=== PATIENT | male | born 1945 | race American Indian/Alaskan Native ===

== ENCOUNTER 2017-01-29 14:53 | Observation (INO) | payer MEDICARE ==
[2017-01-29 15:49] VITALS: TEMP 98.6
[2017-01-29 15:50] VITALS: BMI 36.8
[2017-01-29] MEDS ORDERED: Sodium Chloride 0.9% 1,000 ML IV STA (16:08)
--- NOTE | 2017-01-29 16:11 | ED PDOC ---
Addendum entered and electronically signed by Arsen Monroe PA-C 02/04/17 14:38: Addendum Addendum: 02/04/17 14:37 Duodenal wall thickening; correlate clinically for enteritis. Pt. stated that he feels better already, advised him for PMD Dr. Livingston follow up. Addendum entered and electronically signed by Nilay Gordon PA-C 02/03/17 14:26 : Addendum Addendum: 02/03/17 14:26 I left a voice mail on cellphone to call us back GERRY Original Note: Arrival/HPI - General Chief Complaint: GI Problem Time Seen by Provider: 01/29/17 15:55 Historian: Patient - History of Present Illness Narrative History of Present Illness (Text): 01/29/17 15:57 A 71 year old male, whose past medical history includes CLL and hypertension, presents to the emergency department complaining of lower abdominal pain. Patient says he had diarrhea about two days ago then took immodium then got constipated. He took prune juice yesterday which helped briefly. But he still reports constipation but denies vomiting, dizziness, dysuria, back pain or any other complaints at this time. PMD: Dr. Livingston Symptom Onset: Sudden Symptom Course: Unchanged Activities at Onset: Rest Context: Home Past Medical History - Provider Review Nursing Documentation Reviewed: Yes - Cardiac Hx Cardiac Disorders: Yes Hx Hypertension: Yes Hx Pacemaker: No - Pulmonary Hx Respiratory Disorders: No - Neurological Hx Neurological Disorder: No Hx Paralysis: No - HEENT Hx HEENT Disorder: Yes Other/Comment: CLL - Renal Hx Renal Disorder: No - Endocrine/Metabolic Hx Endocrine Disorders: No - Hematological/Oncological Hx Blood Disorders: Yes Hx Blood Transfusions: No Hx Blood Transfusion Reaction: No Hx Lymphoma: Yes (non hodgkins) - Integumentary Hx Dermatological Disorder: No - Musculoskeletal/Rheumatological Hx Musculoskeletal Disorders: No - Gastrointestinal Hx Gastrointestinal Disorders: No - Genitourinary/Gynecological Hx Genitourinary Disorders: No - Psychiatric Hx Psychophysiologic Disorder: No Hx Emotional Abuse: No Hx Physical Abuse: No Hx Substance Use: No - Surgical History Hx Cardiac Catheterization: Yes Hx Orthopedic Surgery: Yes (right knee) - Anesthesia Hx Anesthesia Reactions: No Hx Malignant Hyperthermia: No - Suicidal Assessment Feels Threatened In Home Enviroment: No Family/Social History - Physician Review Nursing Documentation Reviewed: Yes Family/Social History: No Known Family HX Smoking Status: Never Smoked Hx Alcohol Use: No Hx Substance Use: No Allergies/Home Meds Allergies/Adverse Reactions: Allergies No Known Allergies Allergy (Verified 01/29/17 15:50) Home Medications: Home Meds Medication Instructions Recorded Confirmed Amiloride Hydrochloride [Midamor] 20 mg PO BID 05/04/15 02/09/16 Aspirin/Dipyridamole [Aggrenox 25 1 cap PO BID 05/04/15 02/09/16 MG-200 MG] Allopurinol 100 mg PO BID 07/14/15 02/09/16 Atenolol [Tenormin] 50 mg PO QAM 07/14/15 02/09/16 Atorvastatin Calcium [Lipitor] 20 mg PO QPM 07/14/15 02/09/16 Doxazosin [Cardura] 8 mg PO BID 07/14/15 02/09/16 Tramadol Hydrochloride [Tramadol] 50 mg PO BID 07/14/15 02/09/16 Nitroglycerin 0.4 mg/hr [Nitro-Dur 1 patch TD DAILY 02/09/16 02/09/16 0.4 mg/hr Patch] Telmisartan [Telmisartan] 80 mg PO DAILY 02/09/16 02/09/16 Review of Systems - Physician Review All systems were reviewed & negative as marked: Yes - Review of Systems Constitutional: absent: Fevers Respiratory: absent: SOB Cardiovascular: absent: Chest Pain Gastrointestinal: Abdominal Pain. absent: Vomiting Genitourinary Male: absent: Dysuria Musculoskeletal: absent: Back Pain Neurological: absent: Dizziness Physical Exam Vital Signs Reviewed: Yes Vital Signs Temp Pulse Resp BP Pulse Ox 01/29/17 19:00 64 18 142/75 99 01/29/17 17:00 68 18 144/79 99 01/29/17 15:50 98.6 F 71 16 145/67 98 01/29/17 15:48 98.6 F 71 18 146/87 99 Temperature: Afebrile Blood Pressure: Normal Pulse: Regular Respiratory Rate: Normal Appearance: Positive for: Well-Appearing, Non-Toxic, Comfortable Pain Distress: None Mental Status: Positive for: Alert and Oriented X 3 - Systems Exam Head: Present: Atraumatic, Normocephalic Pupils: Present: PERRL Conjunctiva: Present: Normal Mouth: Present: Moist Mucous Membranes Pharnyx: Present: Normal. No: ERYTHEMA, EXUDATE Neck: Present: Normal Range of Motion Respiratory/Chest: Present: Clear to Auscultation, Good Air Exchange. No: Respiratory Distress, Accessory Muscle Use Cardiovascular: Present: Regular Rate and Rhythm, Normal S1, S2. No: Murmurs Abdomen: Present: Tenderness (mild- suprapubic and L), Normal Bowel Sounds. No : Distention, Peritoneal Signs Rectal: Present: Other (brown stool, guaiac negative) Back: Present: Normal Inspection Upper Extremity: Present: Normal Inspection. No: Cyanosis, Edema Lower Extremity: Present: Normal Inspection. No: Edema Neurological: Present: GCS=15, CN II-XII Intact, Speech Normal Skin: Present: Warm, Dry, Normal Color. No: Rashes Psychiatric: Present: Alert, Oriented x 3, Normal Insight, Normal Concentration Medical Decision Making ED Course and Treatment: 01/29/17 15:57 Impression: A 71 year old male with abdominal pain and constipation. Differential Diagnosis included but are not limited to: constipation vs. UTI vs colitis Plan: -- EKG -- CT abd/pelvis -- labs -- Urinalysis -- Reassess and disposition Prior Visits: Notes and results from previous visits were reviewed. Patient last reported to the emergency department on 02/09/16 for evaluation of epigastric abdominal pain and associated nausea. Patient was discharged. - Lab Interpretations I have reviewed the lab results: Yes - EKG Interpretation Interpreted by ED Physician: Yes Type: 12 lead EKG - Medication Orders Current Medication Orders: Sodium Chloride (Sodium Chloride 0.9%) 1,000 mls @ 200 mls/hr IV .Q5H STA Stop: 01/29/17 21:07 Discontinued Medications Iohexol (Omnipaque 240 (50 Ml)) Confirm Administered Dose 50 ml .ROUTE .STK-MED ONE Stop: 01/29/17 16:17 ED OBSERVATION Discharge: Yes Date of observation admission: 01/29/17 Time of observation admission: 15:57 - Observation admission statement Patient is being placed in observation because:: abdominal pain and constipation - Goals of Observation Goals of observation are:: monitor patient - Progress Note Progress Note: 01/29/17 17:50 Patient is in no acute distress, resting comfortably. 01/29/17 18:50 CT abd/pelvis: IMPRESSION: No acute findings. Dictated and Authenticated by: Ulises Nice MD 01/29/2017 6:49 PM Eastern Time ([place] & [place]) 01/29/17 19:57 Patient is in no acute distress. 01/29/17 19:50 Labs, CT a/p, and u/a are negative - will d/c patient on miralax and senna and f /u pmd. - Scribe Statement The provider has reviewed the documentation as recorded by the Joy Saini Provider Scribe Attestation: All medical record entries made by the Scribe were at my direction and personally dictated by me. I have reviewed the chart and agree that the record accurately reflects my personal performance of the history, physical exam, medical decision making, and the department course for this patient. I have also personally directed, reviewed, and agree with the discharge instructions and disposition. Disposition/Present on Arrival - Present on Arrival Any Indicators Present on Arrival: No History of DVT/PE: No History of Uncontrolled Diabetes: No Urinary Catheter: No History of Decub. Ulcer: No History Surgical Site Infection Following: None - Disposition Have Diagnosis and Disposition been Completed?: Yes Diagnosis: Abdominal pain, Constipation Disposition: HOME/ ROUTINE Disposition Time: 19:55 Patient Plan: Discharge Patient Problems: Current Active Problems Problem Status Onset Abdominal pain Acute Constipation Acute Condition: GOOD
[2017-01-29] MEDS ORDERED: Iohexol 240 (50 ml) ONE (16:16)
[2017-01-29 17:14] VITALS: RESP 18; O2SAT 99
[2017-01-29 17:19] LABS: ADD MANUAL DIFF? NO
[2017-01-29 17:28] LABS: VENOUS BLOOD GAS BASE EXCESS 6.5 mmol/L (0.0-2.0); VENOUS BLOOD PH 7.34 (7.32-7.43)
[2017-01-29 17:30] LABS: BASO # 0.01 K/mm3 (0.0-2.0); BASO % 0.1 % (0.0-3.0); EOS % 0.1 % (1.5-5.0); GRAN # 5.63 (1.4-6.5); GRAN % 80.9 % (50.0-68.0); HEMATOCRIT 37.2 % (42.0-52.0); LYMPH # 0.6 (1.2-3.4); LYMPH % 8.6 % (22.0-35.0); MEAN CORPUSCULAR HEMOGLOBIN 29.6 pg (25.0-35.0); MEAN CORPUSCULAR HGB CONC 32.5 g/dl (31.0-37.0); MEAN PLATELET VOLUME 10.9 fl (7.0-11.0); MONO # 0.7 (0.1-0.6); MONO % 10.3 % (1.0-6.0); PLATELET COUNT 111 10^3/uL (120.0-450.0)
[2017-01-29 17:33] LABS: INR 0.96 (0.93-1.08); PARTIAL THROMBOPLASTIN TIME 24.5 Seconds (23.7-30.8)
[2017-01-29 17:34] LABS: ALB/GLOB RATIO 1.3 (1.1-1.8); BILIRUBIN,TOTAL 0.8 mg/dL (0.2-1.3); CALCIUM 9.8 mg/dL (8.4-10.5); POTASSIUM 3.7 mmol/L (3.6-5.0); TOTAL PROTEIN 7.9 g/dL (5.8-8.3)
[2017-01-29 17:45] LABS: TROPONIN I 0.02 ng/mL
[2017-01-29 19:05] VITALS: BP 142/75; PULSE 64
[2017-01-29 19:37] LABS: PH,URINE 6.5 (4.7-8.0); URINE BILIRUBIN NEGATIVE (NEGATIVE); URINE BLOOD NEGATIVE (NEGATIVE); URINE GLUCOSE (UA) NEGATIVE (NEGATIVE); URINE KETONE NEGATIVE (NEGATIVE); URINE LEUKOCYTE ESTERASE NEGATIVE Leu/uL (NEGATIVE); URINE UROBILINOGEN 0.2 E.U./dL (<1 E.U./dL)
[2017-01-29 19:41] LABS: URINE APPEARANCE CLEAR (CLEAR); URINE PROTEIN NEGATIVE mg/dL (<30 mg/dL)
--- NOTE | 2017-01-30 11:02 | CT ---
PROCEDURE: CT Abdomen and Pelvis without IV contrast. HISTORY: lower abd pain COMPARISON: CT abdomen and pelvis without IV contrast performed 02/09/16 TECHNIQUE: Contiguous axial images of the abdomen and pelvis. Oral contrast was administered. No IV contrast given. Coronal and Sagittal reformats generated. Radiation dose: Total exam DLP = 1106. 40 mGy-cm. This CT exam was performed using one or more of the following dose reduction techniques: Automated exposure control, adjustment of the mA and/or kV according to patient size, and/or use of iterative reconstruction technique. FINDINGS: There is limited evaluation of the solid organs without the administration of IV contrast. LOWER THORAX: No visible consolidation, pleural effusion, or pneumothorax. Dense mitral annulus calcification. Small hiatal hernia. LIVER: Punctate right hepatic lobe calcification, likely granuloma. GALLBLADDER AND BILE DUCTS: Unremarkable. PANCREAS: Unremarkable unenhanced appearance. SPLEEN: Unremarkable unenhanced appearance. ADRENALS: Bilateral adrenal gland hypertrophy. KIDNEYS AND URETERS: No hydronephrosis or obstructing renal calculus. Bilateral adrenal gland hypertrophy. BLADDER: The urinary bladder appears unremarkable. REPRODUCTIVE: The prostate gland measures approximately 3.7 x 3.8 cm. APPENDIX: The appendix appears within normal limits of caliber. No secondary signs of acute appendicitis. BOWEL: The stomach is nondistended. The bowel loops appear within normal limits of caliber without evidence of intestinal obstruction. Duodenal wall thickening ; correlate clinically for enteritis. Diverticulosis without CT evidence of acute diverticulitis. PERITONEUM: No significant free fluid. No definite free air. LYMPH NODES: Interval decrease in previously demonstrated extensive adenopathy. Sub cm mesenteric lymph nodes, nonspecific. VASCULATURE: Atherosclerotic calcifications. No aortic aneurysm. BONES: Multilevel degenerative changes. OTHER FINDINGS: None. IMPRESSION: Duodenal wall thickening ; correlate clinically for enteritis. Diverticulosis without CT evidence of acute diverticulitis. Additional incidental findings as above. Preliminary impression was provided by virtual radiologic. Study is been marked for PA review.
--- NOTE | 2017-01-30 11:57 | CARD ---
APPROVED REPORT EKG Measurement Heart [id number] <Conclusion> Sinus rhythm with 1st degree AV block Nonspecific T wave abnormality, new
== END 2017-01-29 20:04 | disposition home or self-care (01) ==
LOC: ED 14:53 → EROBSV 15:57
PROVIDERS: ADMIT Emergency Medicine; ATTEND Emergency Medicine
DX: K59.00 Constipation, unspecified (principal); R10.30 Lower abdominal pain, unspecified; I10 Essential (primary) hypertension
CPT/HCPCS: 36415; 74176; 80053; 81003; 82150; 82550; 82553; 82803; 83615; 83690; 84484; 85025; 85610; 85730; 93005; 99283; G0378; Q9966

== ENCOUNTER 2017-04-07 16:25 | Observation (INO) | payer MEDICARE ==
[2017-04-07 16:32] VITALS: BMI 35.6
--- NOTE | 2017-04-07 16:50 | ED PDOC ---
Arrival/HPI - General Historian: Patient - History of Present Illness Time/Duration: Prior to Arrival Symptom Onset: Sudden Symptom Course: Resolved Activities at Onset: Other (physical therapy) <Luis Elam - Last Filed: 04/07/17 17:58> <Otilia HORNEDyllan - Last Filed: 04/07/17 18:33> - General Chief Complaint: Weakness/Neurological Deficit Time Seen by Provider: 04/07/17 16:32 - History of Present Illness Narrative History of Present Illness (Text): 71 M with PMH of NHL, TIA, HTN presents to ED with complaint of L sided numbness /tingling. Patient was at physical therapy when he developed weakness and numbness/tingling in his left arm. Next, the numbness went to L side of face and LLE. Patient states that his symptoms started at 3:55 pm, lasted 20 min and resolved upon arrival. Patient drove himself and walked in to ED. Patient currently denying any pain. Denies syncope, trauma, vision changes, slurred speech, mentation changes, vertigo, dizziness/lightheadedness, cp, sob, palpitations, abd pain, n/v/d. (Luis Elam) Past Medical History - Provider Review Nursing Documentation Reviewed: Yes - Travel History Have you recently traveled outside [place] w/in the past 3 mons?: No - Cardiac Hx Cardiac Disorders: Yes Hx Hypertension: Yes Hx Pacemaker: No - Pulmonary Hx Respiratory Disorders: No - Neurological Hx Neurological Disorder: No Hx Paralysis: No - HEENT Hx HEENT Disorder: Yes Other/Comment: CLL - Renal Hx Renal Disorder: No - Endocrine/Metabolic Hx Endocrine Disorders: No - Hematological/Oncological Hx Blood Disorders: Yes Hx Blood Transfusions: No Hx Blood Transfusion Reaction: No Hx Lymphoma: Yes (non hodgkins) - Integumentary Hx Dermatological Disorder: No - Musculoskeletal/Rheumatological Hx Musculoskeletal Disorders: No - Gastrointestinal Hx Gastrointestinal Disorders: No - Genitourinary/Gynecological Hx Genitourinary Disorders: No - Psychiatric Hx Psychophysiologic Disorder: No Hx Emotional Abuse: No Hx Physical Abuse: No Hx Substance Use: No - Surgical History Hx Cardiac Catheterization: Yes Hx Orthopedic Surgery: Yes (right knee) - Anesthesia Hx Anesthesia Reactions: No Hx Malignant Hyperthermia: No - Suicidal Assessment Feels Threatened In Home Enviroment: No <Luis Elam - Last Filed: 04/07/17 17:58> Family/Social History - Physician Review Nursing Documentation Reviewed: Yes Family/Social History: Unknown Family HX Smoking Status: Never Smoked Hx Alcohol Use: No Hx Substance Use: No <Luis Elam - Last Filed: 04/07/17 17:58> Allergies/Home Meds <Luis Elam - Last Filed: 04/07/17 17:58> <Dyllan Bingham DO - Last Filed: 04/07/17 18:33> Allergies/Adverse Reactions: Allergies No Known Allergies Allergy (Verified 04/07/17 16:32) Home Medications: Home Meds Medication Instructions Recorded Confirmed Unobtainable 04/07/17 04/07/17 Review of Systems - Review of Systems Constitutional: absent: Fatigue, Weight Change, Fevers, Night Sweats Eyes: absent: Vision Changes, Photophobia, Eye Pain ENT: absent: Hearing Changes, Tinnitus, TMJ Pain, Voice Changes, Rhinorrhea, Epistaxis, Sinus Congestion Respiratory: absent: SOB, Cough, Sputum, Wheezing Cardiovascular: absent: Chest Pain, Palpitations, Calf Pain, Syncope Gastrointestinal: absent: Abdominal Pain, Constipation, Diarrhea, Nausea, Vomiting Genitourinary Male: absent: Dysuria, Frequency, Hematuria, Urinary Output Changes Musculoskeletal: absent: Arthralgias, Back Pain Skin: absent: Rash, Pruritis, Skin Lesions Neurological: absent: Headache, Dizziness, Focal Weakness Endocrine: absent: Diaphoresis, Polyuria, Polydipsia Hemo/Lymphatic: absent: Adenopathy, Easy Bleeding, Easy Bruising Psychiatric: absent: Anxiety, Depression, Suicidal Ideation <Luis Elam - Last Filed: 04/07/17 17:58> Physical Exam Vital Signs Reviewed: Yes Temperature: Afebrile Blood Pressure: Normal Pulse: Regular Respiratory Rate: Normal Appearance: Positive for: Well-Appearing, Non-Toxic, Comfortable Pain Distress: None Mental Status: Positive for: Alert and Oriented X 3 - Systems Exam Head: Present: Atraumatic, Normocephalic Pupils: Present: PERRL Extroacular Muscles: Present: EOMI Conjunctiva: Present: Normal Mouth: Present: Moist Mucous Membranes Nose (External): Present: Atraumatic Neck: Present: Normal Range of Motion, Trachea Midline Respiratory/Chest: Present: Clear to Auscultation, Good Air Exchange Cardiovascular: Present: Regular Rate and Rhythm, Normal S1, S2, Peripheal Pulses Present Abdomen: Present: Normal Bowel Sounds. No: Tenderness, Distention, Peritoneal Signs Back: No: CVA Tenderness Upper Extremity: Present: Normal ROM, NORMAL PULSES, Neurovascularly Intact, Capillary Refill < 2s Lower Extremity: Present: NORMAL PULSES, Normal ROM, Neurovascularly Intact, Capillary Refill < 2 s Neurological: Present: GCS=15, CN II-XII Intact, Speech Normal, Motor Func Grossly Intact, Normal Sensory Function, Normal Cerebellar Funct, Norm Deep Tendon Reflexes Skin: Present: Warm, Dry, Normal Color Lymphatic: No: Cervical Adenopathy, Axillary Adenopathy, Inguinal Adenopathy Psychiatric: Present: Alert, Oriented x 3, Normal Insight, Normal Concentration , Normal Affect <Luis Elam - Last Filed: 04/07/17 17:58> <Dyllan Bingham DO - Last Filed: 04/07/17 18:33> Vital Signs Temp Pulse Resp BP Pulse Ox 04/07/17 17:55 79 18 128/65 98 04/07/17 16:32 98.0 F 86 18 131/66 97 Medical Decision Making <Luis Elam - Last Filed: 04/07/17 17:58> <Dyllan Bingham DO - Last Filed: 04/07/17 18:33> ED Course and Treatment: Code stroke was called. CT head, ekg, cbc, cmp, coags, HA1C, Lipid panel, Type and screen, Cardiac enzymes were ordered. CT head was negative. Labs reviewed and no significant change from patients baseline noted. Dr. Bingham spoke to neurologist Dr. Escalante at 5:35 pm and he recommended ordering MRI and Carotid US. Case was discussed with Dr. Livingston and it was determined to admit patient to telemetry for observation. (Luis Elam) - Lab Interpretations Lab Results: 04/07/17 17:20 04/07/17 17:20 Lab Results 04/07/17 17:20: Blood Type A POSITIVE, Antibody Screen Pending, BBK History Checked No verified bt 04/07/17 17:20: Sodium 141, Potassium 3.4 L, Chloride 100, Carbon Dioxide 31, Anion Gap 13, BUN 29 H, Creatinine 1.9 H, Est GFR ( Amer) 42, Est GFR ( Non-Af Amer) 35, Random Glucose 103, Calcium 9.5, Total Bilirubin 0.5, AST 45, ALT 47, Alkaline Phosphatase 68, Troponin I 0.02, Total Protein 7.1, Albumin 4.1 , Globulin 3.0, Albumin/Globulin Ratio 1.4, Triglycerides 311 H, Cholesterol 155 , LDL Cholesterol Direct 50, HDL Cholesterol 42 04/07/17 17:20: PT 10.6, INR 0.98, APTT 25.2 04/07/17 17:20: WBC 3.6 L D, RBC 4.04, Hgb 12.1 L, Hct 36.8 L, MCV 91.1, MCH 30.0, MCHC 32.9, RDW 15.1 H, Plt Count 103 L, MPV 10.2, Gran % 67.1, Lymph % ( Auto) 22.6, [place] % (Auto) 7.5 H, Eos % (Auto) 2.8, Baso % (Auto) 0.0, Gran # 2.41, Lymph # 0.8 L, [place] # 0.3, Eos # 0.1, Baso # 0.00 - RAD Interpretation Radiology Orders: 04/07/17 16:47 HEAD W/O (CODE STROKE) [CT] Stat CHEST PORTABLE [RAD] Stat 04/07/17 17:47 BRAIN WITHOUT CONTRAST [MRI] Stat - Medication Orders Current Medication Orders: Allopurinol (Zyloprim) 200 mg PO DAILY DARVIN Atenolol (Tenormin) 50 mg PO DAILY DARVIN Atorvastatin Calcium (Lipitor) 20 mg PO DIN DARVIN Dipyridamole/Aspirin (Aggrenox 25-200 Mg) 1 ea PO BID DARVIN Famotidine (Pepcid) 20 mg PO BID DARVIN Losartan Potassium (Cozaar) 100 mg PO DAILY DARVIN Tramadol HCl (Ultram) 50 mg PO TID PRN PRN Reason: Pain, Mild (1-3) Discontinued Medications Atorvastatin Calcium (Lipitor) 20 mg PO STAT STA Stop: 04/07/17 17:59 NIHSS Scale ([place]) Time Performed: 04:40 - How Severe is the Stoke Baseline Level of Consciousness: 0=Alert LOC to Questions: 0=Both comments correct LOC to commands: 0=Obeys both correctly Best Gaze: 0=Normal Visual: 0=No visual loss Facial: 0=Normal Motor Arm - Left: 0=No drift Motor Arm - Right: 0=No drift Motor Leg - Left: 0=No drift Motor Leg - Right: 0=No drift Limb Ataxia: 0=Absent Sensory: 0=Normal Best Language: 0=No aphasia Dysarthia: 0=Normal articulation Extinction & Inattention (Neglect): 0=Normal, no object Score: 0 Risk Level: No Stroke Risk <Luis Elam - Last Filed: 04/07/17 17:58> rTPA Inclusion/Exclusion - Refusal of Treatment Patient Refused Treatment: No - Inclusion Criteria for Altepase Patient is 18 years or Older: Yes The Clinical Diagnosis of Ischemic Stroke That is Causing a Potentially Disabling Neurological Deficit: No Time of Onset is Well Established to be Less Than 270 Minute Before Treatment Would Begin: Yes Risk/Benefit Discussed With Patient/Family Member Present: No <Luis Elam - Last Filed: 04/07/17 17:58> - Refusal of Treatment Patient Refused Treatment: No - Inclusion Criteria for Altepase Patient is 18 years or Older: Yes The Clinical Diagnosis of Ischemic Stroke That is Causing a Potentially Disabling Neurological Deficit: No Time of Onset is Well Established to be Less Than 270 Minute Before Treatment Would Begin: Yes Risk/Benefit Discussed With Patient/Family Member Present: No - Exclusion Criteria for Altepase Uncontrolled Hypertension at Time of Treatment (Systolic BP above 185 or Diastolic BP above 110 mmHg): No <Dyllan Bingham DO - Last Filed: 04/07/17 18:33> Disposition/Present on Arrival - Present on Arrival Any Indicators Present on Arrival: No History of DVT/PE: No History of Uncontrolled Diabetes: No Urinary Catheter: No History of Decub. Ulcer: No History Surgical Site Infection Following: None - Disposition Have Diagnosis and Disposition been Completed?: Yes Disposition Time: 15:55 Patient Plan: Admission, Observation, Telemetry <Luis Elam - Last Filed: 04/07/17 17:58> <Dyllan Bingham DO - Last Filed: 04/07/17 18:33> - Disposition Diagnosis: TIA (transient ischemic attack) Disposition: HOSPITALIZED Patient Problems: Current Active Problems Problem Status Onset TIA (transient ischemic attack) Acute Condition: STABLE
--- NOTE | 2017-04-07 17:08 | CT ---
PROCEDURE: CT HEAD WITHOUT CONTRAST. HISTORY: Code Stroke COMPARISON: None available. TECHNIQUE: Axial computed tomography images were obtained through the head/brain without intravenous contrast. Radiation dose: Total exam DLP = 790.35 mGy-cm. This CT exam was performed using one or more of the following dose reduction techniques: Automated exposure control, adjustment of the mA and/or kV according to patient size, and/or use of iterative reconstruction technique. FINDINGS: HEMORRHAGE: No intracranial hemorrhage. BRAIN: Diffuse atrophy with prominence of the ventricles and sulci noted. No mass effect or edema. Intracranial atherosclerotic calcifications. Moderate nonspecific periventricular and subcortical white matter hypodensities, which are nonspecific, but often seen with chronic microvascular ischemic disease. Please note that MRI with diffusion imaging is more sensitive in the detection of acute ischemic event. VENTRICLES: No hydrocephalus. CALVARIUM: Unremarkable. PARANASAL SINUSES: Unremarkable as visualized. No significant inflammatory changes. MASTOID AIR CELLS: Unremarkable as visualized. No inflammatory changes. OTHER FINDINGS: None. IMPRESSION: Moderate nonspecific white matter changes. Generalized atrophy. Please note that MRI with diffusion imaging is more sensitive in the detection of acute ischemic event. Findings discussed with Dr. Bingham on 04/07/17 at 5:05 p.m.
[2017-04-07 17:27] LABS: EOS # 0.1 (0.0-0.7); EOS % 2.8 % (1.5-5.0); GRAN # 2.41 (1.4-6.5); GRAN % 67.1 % (50.0-68.0); HEMOGLOBIN 12.1 gm/dL (14.0-18.0); LYMPH # 0.8 (1.2-3.4); LYMPH % 22.6 % (22.0-35.0); MEAN CELL VOLUME 91.1 fL (80.0-105.0); MEAN CORPUSCULAR HGB CONC 32.9 g/dl (31.0-37.0); MEAN PLATELET VOLUME 10.2 fl (7.0-11.0); MONO # 0.3 (0.1-0.6); MONO % 7.5 % (1.0-6.0); PLATELET COUNT 103 10^3/uL (120.0-450.0); RBC 4.04 10^6/uL (3.5-6.1); RED CELL DISTRIBUTION WIDTH 15.1 % (11.5-14.5); WHITE BLOOD COUNT 3.6 10^3/ul (4.5-11.0)
[2017-04-07 17:36] LABS: ALB/GLOB RATIO 1.4 (1.1-1.8); ALBUMIN 4.1 g/dL (3.0-4.8); CALCIUM 9.5 mg/dL (8.4-10.5)
[2017-04-07 17:41] LABS: INR 0.98 (0.93-1.08); PARTIAL THROMBOPLASTIN TIME 25.2 Seconds (23.7-30.8); PROTHROMBIN TIME 10.6 Seconds (9.9-11.8)
[2017-04-07 17:49] LABS: TROPONIN I 0.02 ng/mL
[2017-04-07 18:16] VITALS: O2SAT 98
--- NOTE | 2017-04-07 18:21 | RAD ---
HISTORY: CVA alert COMPARISON: Chest x-ray performed 02/09/16 TECHNIQUE: Chest, one view. FINDINGS: Examination limited by habitus. LUNGS: The costophrenic angles are incompletely imaged. Bilateral hilar prominence. No focal consolidation. 7 mm nodular density, inferior right upper lobe. Please note that chest x-ray has limited sensitivity for the detection of pulmonary masses. PLEURA: No significant pleural effusion identified. No definite pneumothorax . CARDIOVASCULAR: Cardiomegaly. OSSEOUS STRUCTURES: Degenerative changes. VISUALIZED UPPER ABDOMEN: Unremarkable. OTHER FINDINGS: None. IMPRESSION: The costophrenic angles are incompletely imaged. Bilateral hilar prominence. 7 mm nodular density, inferior right upper lobe. CT of the chest may be considered for further evaluation if indicated. Cardiomegaly.
--- NOTE | 2017-04-07 19:13 | MRI ---
EXAM: MR Head Without Intravenous Contrast CLINICAL HISTORY: The patient age is 71 years old and is male; Signs and symptoms; Weakness, extremity; Left; Patient HX: Left arm numbness; Additional info: Code stroke - f/u to CT Facility exam id and description: Mri br s brain without contrast TECHNIQUE: Magnetic resonance images of the head/brain without intravenous contrast in multiple planes. EXAM DATE/TIME: 04/07/2017 5:47 PM COMPARISON: CT - HEAD W/O (CODE STROKE) 04/07/2017 4:45:29 PM FINDINGS: Brain: There is no restricted diffusion within the brain to suggest acute ischemic change. There is extensive high FLAIR signal intensity within the cerebral white matter. There is no mass effect or restricted diffusion associated with this white matter disease. In a patient this age, this likely represents chronic small vessel ischemic disease. There is prominence of the ventricles and sulci, compatible with atrophy. Multiple small foci of magnetic susceptibility are identified within the brain and brainstem, consistent with foci of chronic hemorrhage/hemosiderin, cavernous malformations, or amyloid angiopathy. Scattered small T2 hyperintense chronic lacunar infarcts are seen within the white matter as well. Foci of T2 hyperintensity are visualized within the bilateral basal ganglia, consistent with dilated perivascular spaces, and/or chronic ischemic changes. T2 hyperintense foci of chronic ischemic change are also noted within the chris. Ventricles: There is a cavum septum pellucidum et vergae variant. Bones/joints: No acute abnormality. Sinuses: There is mild mucosal thickening of the ethmoid air cells and bilateral maxillary sinuses. Minimal mucosal thickening is visualized of the sphenoid sinuses. Mastoid air cells: No mastoid effusion. Orbits: No acute abnormality, as visualized. IMPRESSION: 1. There is no restricted diffusion within the brain to suggest acute ischemic change. 2. There is extensive high FLAIR signal intensity within the cerebral white matter. In a patient this age, this likely represents chronic small vessel ischemic disease. 3. Atrophy. 4. Additional chronic ischemic changes are noted above. 5. Multiple small foci of magnetic susceptibility are identified within the brain and brainstem. Differential considerations include foci of chronic hemorrhage/hemosiderin, cavernous malformations, or amyloid angiopathy. Post contrast sequences are recommended to exclude additional pathology. 6. Paranasal sinus disease is noted above.
--- NOTE | 2017-04-07 20:31 | CARD ---
APPROVED REPORT EKG Measurement Heart [id number] <Conclusion> Sinus bradycardia Nonspecific T wave abnormality Abnormal ECG
[2017-04-07] MEDS: Aspirin-Dipyridamole 200-25 mg ER Cap PO SCH (21:37)
[2017-04-07] MEDS ORDERED: Pneumococcal 23-Valent Vaccine IM ONE (23:33)
--- NOTE | 2017-04-08 01:57 | CP.PCM.PN ---
Subjective - Date & Time of Evaluation Date of Evaluation: 04/08/17 Time of Evaluation: 01:57 - Subjective Subjective: When I was on the floor , nurse told me that heart rate is 43/min, mostly remains 50/min. He is asymptomatic. Medical record was reviewed. This 71 year old male was admitted with tingling and numbness of left side , left arm,anemia, thrombocytopenia, hypokalemia, renal insufficiency. Has PMH of NHL, HTN, TIA. Objective - Vital Signs/Intake and Output Vital Signs (last 24 hours): Temp Pulse Resp BP Pulse Ox 98 F 57 L 16 132/62 98 04/07/17 23:17 04/07/17 23:17 04/07/17 23:17 04/07/17 23:17 04/07/17 18:00 - Medications Medications: Current Medications Allopurinol (Zyloprim) 200 mg PO DAILY [facility] Last Admin: 04/07/17 21:37 Dose: Not Given Atenolol (Tenormin) 50 mg PO DAILY [facility] Atorvastatin Calcium (Lipitor) 20 mg PO DIN [facility] Dipyridamole/Aspirin (Aggrenox 25-200 Mg) 1 ea PO BID [facility] Last Admin: 04/07/17 21:37 Dose: Not Given Famotidine (Pepcid) 20 mg PO BID [facility] Last Admin: 04/07/17 21:37 Dose: Not Given Losartan Potassium (Cozaar) 100 mg PO DAILY [facility] Tramadol HCl (Ultram) 50 mg PO TID PRN PRN Reason: Pain, Mild (1-3) - Labs Labs: PT 10.6 Seconds (9.9-11.8) 04/07/17 17:20 INR 0.98 (0.93-1.08) 04/07/17 17:20 APTT 25.2 Seconds (23.7-30.8) 04/07/17 17:20 - Constitutional Appears: Well, No Acute Distress - Head Exam Head Exam: ATRAUMATIC, NORMAL INSPECTION, NORMOCEPHALIC - Eye Exam Eye Exam: Normal appearance - ENT Exam ENT Exam: Normal External Ear Exam - Neck Exam Neck Exam: Normal Inspection - Respiratory Exam Respiratory Exam: NORMAL BREATHING PATTERN - Cardiovascular Exam Cardiovascular Exam: absent: JVD - GI/Abdominal Exam GI & Abdominal Exam: absent: Distended - Rectal Exam Rectal Exam: Deferred - Exam Additional comments: Deferred. - Extremities Exam Extremities Exam: Normal Inspection - Back Exam Back Exam: NORMAL INSPECTION - Neurological Exam Neurological Exam: Alert, Awake - Psychiatric Exam Psychiatric exam: Normal Affect, Normal Mood - Skin Skin Exam: Normal Color Assessment and Plan - Assessment and Plan (Free Text) Assessment: Sinus bradycardia. NHL. HTN. Hx TIA.
[2017-04-08 03:04] VITALS: RESP 18
--- NOTE | 2017-04-08 04:36 | HP ---
HISTORY OF PRESENT ILLNESS: The patient is a 71-year-old black male, morbidly obese, known to me from office practice. The patient recently was having physical therapy. When he was in physical therapy session, he noticed that he was having left-sided numbness and tingling associated with some weakness that initially was in the left arm and then it migrated towards the left side of the face and lower leg. Approximately, symptoms started around 4 o'clock. He states he waited for sometime and then noticed that it is spontaneously resolving, but he thought he should get checked out anyway, so he drove to the [facility] and by the time he reached emergency room, his symptoms had resolved. Denies any slurring of the speech. Denies any nausea or vomiting. No headache. No chest pain. No palpitation. PAST MEDICAL HISTORY: Significant for: 1. Morbid obesity. 2. Hypertension. 3. Hyperlipidemia. 4. Chronic kidney disease, under care of Dr. Forrester in [place]. 5. History of peptic ulcer disease. 6. History of non-Hodgkin lymphoma under care of Dr. Garcia. ALLERGIES: HE IS NOT ALLERGIC TO ANY MEDICATIONS. MEDICATIONS AT HOME: He is on Aggrenox. He takes losartan 100 mg daily, Lipitor 20 mg daily, Pepcid 20 twice a day, atenolol 50 mg daily, tramadol as needed and allopurinol 200 mg daily. SOCIAL HISTORY: Denied smoking or drinking. He is very active in [employer]. No history of alcohol use. REVIEW OF SYSTEMS: Currently he has no significant symptom. PHYSICAL EXAMINATION: GENERAL: He is awake, alert and communicative. VITAL SIGNS: He is afebrile, pulse 57, respirations 16 and blood pressure 132/62. LUNGS: Bilateral fair airflow. No rhonchi or crackles. HEART: S1 and S2, audible. ABDOMEN: Soft, obese, nontender. No rebound. No guarding. LABORATORY DATA: WBC is 3.6, hemoglobin 12, hematocrit 36 and platelet of 103. PT is 10.6, INR 0.98, PTT 25.2. Chemistry; sodium 141, potassium 3.4, chloride 100, CO2 of 31, BUN 29, creatinine 1.9, blood sugar of 103. LFTs are within normal limits. Triglyceride 311. CT scan of the head is negative. CT scan of the brain essentially unremarkable except chronic microvascular changes. Paranasal disease is noted. ASSESSMENT: 1. Probably transient ischemic attack. 2. History of hypertension. 3. Hyperlipidemia. 4. Peptic ulcer disease. 5. Non-Hodgkin lymphoma. 6. Hypokalemia. PLAN: We will start the patient on his regular usual medications. He will be given Aggrenox. He is on statins. Continue him on Tenormin, tramadol as needed. Cardiology consult will be requested and the patient will be evaluated by neurologist. We will order for carotid Doppler. Brain scan is negative. We will monitor overnight. If the patient remains asymptomatic, he will be discharged home in a.m. Ching Livingston MD
[2017-04-08] MEDS: Aspirin-Dipyridamole 200-25 mg ER Cap PO SCH (10:22)
--- NOTE | 2017-04-08 13:11 | US ---
PROCEDURE: Bilateral carotid artery duplex ultrasound HISTORY: Carotid stenosis syncope PHYSICIAN(S): Sha Dickey MD. TECHNIQUE: Duplex sonography and color-flow Doppler were used to evaluate the carotid bifurcations and limited segments of the vertebral arteries bilaterally. The exam is limited by body habitus and the patient's inability to cooperate FINDINGS: There is mild to moderate smooth echogenic plaque noted at the carotid bifurcations bilaterally. The peak systolic velocity in the proximal right internal carotid artery is 97 cm/sec. This corresponds to a 20 to 39% proximal right ICA stenosis. Normal systolic velocities are noted in the proximal right external carotid artery. There is antegrade flow in the right vertebral artery. The peak systolic velocity in the proximal left internal carotid artery is 76 cm/sec. This corresponds to a 20 to 39% proximal left ICA stenosis. Normal systolic velocities are noted in the proximal left external carotid artery. There is antegrade flow in the left vertebral artery. IMPRESSION: 1. Bilateral 20-39% proximal ICA stenoses. 2. Antegrade flow in both vertebral arteries. 3. Limited study.
[2017-04-08 13:16] VITALS: PULSE 53; TEMP 97.6
--- NOTE | 2017-04-08 16:34 | CARD ---
APPROVED REPORT EXAM: Two-dimensional and M-mode echocardiogram with Doppler and color Doppler. INDICATION 2D DIMENSIONS IVSd1.7 (0.7-1.1cm)LVDd5.0 (3.9-5.9cm) PWd1.7 (0.7-1.1cm)LVDs3.0 (2.5-4.0cm) FS (%) 39.7 %LVEF (%)70.1 (>50%) M-Mode DIMENSIONS Left Atrium (MM)3.50 (2.5-4.0cm)Aortic Root3.30 (2.2-3.7cm) Aortic Cusp Exc.2.00 (1.5-2.0cm) Aortic Valve AoV Peak Vsoxchbp889.0cm/Jace Peak GR.15mmHg Mitral Valve MV E Evxiwmzw27.4cm/sMV A Tfadhefs039.0cm/sE/A ratio0.7 TDI Lateral E' Peak V4.78cm/sMedial E' Peak V5.07cm/sE/Lateral E'17.0 E/Medial E'16.1 Tricuspid Valve TR Peak Xuopofdz188kf/sRAP [id number] Peak Gr.9mmHg [id number] LEFT VENTRICLE The left ventricle is normal size. There is moderate concentric left ventricular hypertrophy. The left ventricular function is normal.EF-65% There is normal LV segmental wall motion. Transmitral Doppler flow pattern is Grade III-reversible restrictive diastolic dysfunction. No left ventricle thrombus noted on this study. There is no ventricular septal defect visualized. There is no left ventricular aneurysm. There is no mass noted in the left ventricle. RIGHT VENTRICLE The right ventricle is normal size. There is normal right ventricular wall thickness. The right ventricular systolic function is normal. ATRIA The left atrium size is normal. The right atrium size is normal. The interatrial septum is intact with no evidence for an atrial septal defect. AORTIC VALVE The aortic valve is calcified but opens well. The aortic valve is moderately to severely sclerotic. No aortic regurgitation is present. Aortic Sclerosis Vs Mild As There is no aortic valvular vegetation. MITRAL VALVE The mitral valve is thickened but opens well. Mitral annular calcification is moderate. Mitral regurgitation is trace. There is no mitral valve stenosis. There is no evidence of mitral valve prolapse. TRICUSPID VALVE The tricuspid valve leaflets are thickened , but open well. There is trace tricuspid regurgitation.RVSP19 mmof hg There is no tricuspid valve stenosis. There is no tricuspid valve prolapse or vegetation. PULMONIC VALVE The pulmonic valve is borderline thickened. There is trace pulmonic valvular regurgitation. There is no pulmonic valvular stenosis. GREAT VESSELS The aortic root is normal in size. The ascending aorta is normal in size. The pulmonary artery is normal. The IVC is normal in size and collapses >50% with inspiration. PERICARDIAL EFFUSION There is no pleural effusion. There is no pericardial effusion. <Conclusion> The left ventricle is normal size. There is moderate concentric left ventricular hypertrophy. The left ventricular function is normal.EF-65% No aortic regurgitation is present. Mitral regurgitation is trace. There is trace tricuspid regurgitation.RVSP19 mmof hg The IVC is normal in size and collapses >50% with inspiration. There is no pericardial effusion. No vegetation or thrombus noted.
[2017-04-08 17:01] VITALS: BP 166/86
--- NOTE | 2017-04-08 22:47 | CON ---
DATE: 04/07/2017 REASON FOR THE CONSULTATION: Followup cardiac evaluation, history of hypertension, admitted with numbness of the left arm. BRIEF CLINICAL HISTORY: A 71-year-old male, obese with past medical history of hypertension for more than 30 years, followed by Dr. Eze Holland and Dr. Forrester, came in yesterday. He has a little numbness in the left forearm, then went into the face and then went to the leg, so the patient came to emergency room. Denies any chest pain, denies any shortness of breath, denies any palpitation, denies any weakness, denies any slurring of speech, denies any double vision. The symptoms has completely subsided in 15-minute according to the patient. The patient came to the emergency room. The patient had a neuro workup done, MRI and carotid duplex, result pending. I will ask Dr. Livingston to see the patient who is discharging the patient now. PAST MEDICAL HISTORY: Significant for morbid obesity, hypertension, hyperlipidemia, history of chronic kidney disease, history of peptic ulcer, history of non-Hodgkin lymphoma under care of Dr. Garcia. HISTORY OF CARDIAC WORKUP: History of cardiac catheterization 3 times, last catheterization probably [address] Eze Holland, told to be nonobstructive coronary artery disease. The patient usually sees Dr. Eze Holland every one year with last followup more than one year. SOCIAL HISTORY: Denies any history of alcohol abuse. FAMILY HISTORY: Significant for coronary artery disease. CURRENT MEDICATION: The patient is taking Aggrenox, losartan, Lipitor, Pepcid, atenolol, tramadol, and allopurinol. REVIEW OF SYSTEMS: As per HPI. PHYSICAL EXAMINATION: VITAL SIGNS: Temperature afebrile, heart rate 50, blood pressure 144/74. HEENT: PERRLA, EOM intact. NECK: Supple. No carotid bruit. No thyromegaly. CHEST: Clear to auscultation. HEART: S1 and S2, regular. ABDOMEN: Soft. EXTREMITIES: Clubbing and cyanosis negative. LABORATORY DATA: Blood workup as follows: WBC 3.6, hemoglobin 12.0, hematocrit 36.8, platelet count 103. Chemistry shows sodium of 144, potassium 3.4, chloride 100, carbon dioxide 31, anion gap of 13, BUN 29, and creatinine 1.9. IMPRESSION: A 71-year-old male with past medical history significant for chronic kidney disease, hypertension more than 30 years, history of cardiac catheterization 3 times being followed by Dr. Eze Holland, and the last cath more than 5 years ago, was told essentially negative. History of *------* followed up by Dr. Holland, seen last one year ago. History of chronic kidney disease and hypertension, being followed by Dr. Forrester at [place], admitted that *------*. Cardiac consult was called for bradycardia. Since the patient is on high doses of Tenormin 25 mg in the morning and 50 at night, so that is causing the bradycardia and hypertension. RECOMMENDATION: Follow up neuro workup. Follow up with Neurology and if it is okay with him, the patient is okay to be discharged. Definitely, the patient's risk factors suggests a stress test to be followed by Dr. Eze Holland, not in terms of time with priority, it can be done as outpatient. Mentioned the patient to follow with Dr. Forrester, but I will get an echo to see any thrombus and follow up with neurologist. Once the patient is seen by the neurologist and cleared, can be discharged home. The patient is cleared from cardiac point in view after the echo done is negative, to go home but needs to be followed up. We will follow with you. Thank you Dr. Holland for opportunity in taking care of the patient. Yovanny Atkinson MD
--- NOTE | 2017-04-10 09:12 | DS ---
SUBJECTIVE: The patient is 71 years old, seen and examined, lying in bed, seem to be comfortable, and not in any distress. No nausea or vomiting. No diarrhea. However, he was found bradycardic, but asymptomatic. He is not weak, dizzy, or lightheaded. PHYSICAL EXAMINATION: VITAL SIGNS: He is afebrile, pulse 50, respirations 18, and blood pressure 144/74. LUNGS: Bilateral fair airflow. No rhonchi or crackles. HEART: S1 and S2 audible. ABDOMEN: Soft, obese, and nontender. No rebound. No guarding. NEUROLOGIC: He is awake, alert, communicative, and nonfocal. No sensory or motor deficit. LABORATORY DATA: His MRI of the brain is negative except chronic microvascular changes. ASSESSMENT: 1. Lightheaded, weakness, and tingling, probably transient ischemic attack. 2. Hypertension. 3. Morbid obesity. 4. History of cancer lung. Recent bone marrow biopsy was negative. PLAN: The patient is hemodynamically stable. He is asymptomatic, encourage ambulation and he can be discharged after he ambulates with no symptoms. Ching Livingston MD
== END 2017-04-08 17:24 | disposition home or self-care (01) ==
LOC: ED 16:25 → ERH 17:54 → 2RNO 21:29
PROVIDERS: ADMIT Internal Medicine; ATTEND Internal Medicine
DX: R42 Dizziness and giddiness (principal); R53.1 Weakness; R20.0 Anesthesia of skin; C85.90 Non-Hodgkin lymphoma, unspecified, unspecified site; I12.9 Hypertensive chronic kidney disease with stage 1 through stage 4 chronic kidney disease, or unspecified chronic kidney disease; N18.9 Chronic kidney disease, unspecified; R00.1 Bradycardia, unspecified; I25.10 Atherosclerotic heart disease of native coronary artery without angina pectoris; E66.01 Morbid (severe) obesity due to excess calories; E78.5 Hyperlipidemia, unspecified; E87.6 Hypokalemia; K27.9 Peptic ulcer, site unspecified, unspecified as acute or chronic, without hemorrhage or perforation; D69.6 Thrombocytopenia, unspecified; D64.9 Anemia, unspecified; Z68.34 Body mass index [BMI] 34.0-34.9, adult; Z86.73 Personal history of transient ischemic attack (TIA), and cerebral infarction without residual deficits; Z85.118 Personal history of other malignant neoplasm of bronchus and lung
CPT/HCPCS: 70450; 70551; 71010; 80053; 80061; 82948; 83036; 84484; 85025; 85610; 85730; 86850; 86870; 86900; 93005; 93306; 93880; 97116; 97161; 99285; G0378; G8978; G8979; G8980

== ENCOUNTER 2017-05-15 12:24 | Emergency (ER) | payer MEDICARE ==
[2017-05-15 13:22] VITALS: BMI 34.5
[2017-05-15 13:26] VITALS: RESP 18; TEMP 98.1
--- NOTE | 2017-05-15 14:16 | ED PDOC ---
Arrival/HPI - General Chief Complaint: Finger,Hand,&Wrist Time Seen by Provider: 05/15/17 13:58 Historian: Patient - History of Present Illness Narrative History of Present Illness (Text): 05/15/17 13:58 Otoniel Lucas is a 71 year old male, whose past medical history includes multiple TIAs, hypertension, and CLL, who presents to the emergency department complaining of right hand weakness for 3 days. Patient states that he has difficulty gripping and squeezing with his right hand. 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 Patient has no other complaints at this time. PMD: Dr. Livingston Past Medical History - Provider Review Nursing Documentation Reviewed: Yes - Infectious Disease Hx of Infectious Diseases: None - Cardiac Hx Cardiac Disorders: Yes Hx Hypertension: Yes - Pulmonary Hx Respiratory Disorders: No - Neurological Hx Neurological Disorder: No Hx Transient Ischemic Attacks (TIA): Yes (04-07-17) - HEENT Hx HEENT Disorder: Yes - Renal Hx Renal Disorder: No - Endocrine/Metabolic Hx Endocrine Disorders: No - Hematological/Oncological Hx Blood Disorders: Yes (CLL NON HODGKINS) - Integumentary Hx Dermatological Disorder: No - Musculoskeletal/Rheumatological Hx Musculoskeletal Disorders: Yes Hx Falls: No Hx Gout: Yes - Gastrointestinal Hx Gastrointestinal Disorders: Yes (CONSTIPATION) - Genitourinary/Gynecological Hx Genitourinary Disorders: No - Psychiatric Hx Psychophysiologic Disorder: No Hx Emotional Abuse: No Hx Physical Abuse: No Hx Substance Use: No - Surgical History Hx Cardiac Catheterization: Yes Hx Orthopedic Surgery: Yes (right knee) - Anesthesia Hx Anesthesia: Yes Hx Anesthesia Reactions: No Hx Malignant Hyperthermia: No - Suicidal Assessment Feels Threatened In Home Enviroment: No Family/Social History - Physician Review Nursing Documentation Reviewed: Yes Family/Social History: No Known Family HX Smoking Status: Never Smoked Hx Alcohol Use: Yes (OCCASIONAL WINE) Frequency of alcohol use: Socially Hx Substance Use: No Allergies/Home Meds Allergies/Adverse Reactions: Allergies No Known Allergies Allergy (Verified 05/15/17 15:30) Home Medications: Home Meds Medication Instructions Recorded Confirmed Allopurinol [Zyloprim] 100 mg PO BID 04/07/17 05/15/17 Aspirin/Dipyridamole [Aggrenox 1 ea PO BID 04/07/17 05/15/17 25-200 mg] Atenolol [Tenormin] 25 mg PO HS 04/07/17 05/15/17 Atenolol [Tenormin] 50 mg PO DAILY 04/07/17 05/15/17 Atorvastatin [Lipitor] 20 mg PO DAILY 04/07/17 05/15/17 Doxazosin [Cardura] 8 mg PO BID 04/07/17 05/15/17 Telmisartan [Micardis] 80 mg PO DAILY 04/07/17 05/15/17 hydrALAZINE [hydralazine 100 mg PO BID 04/07/17 05/15/17 Hydrochloride] Review of Systems - Physician Review All systems were reviewed & negative as marked: Yes - Review of Systems Constitutional: absent: Fevers, Night Sweats Eyes: absent: Vision Changes ENT: absent: Hearing Changes Respiratory: absent: SOB, Cough Cardiovascular: absent: Chest Pain Gastrointestinal: absent: Abdominal Pain Genitourinary Male: absent: Dysuria Musculoskeletal: Other (right hand weakness) Skin: absent: Rash, Pruritis Neurological: absent: Headache, Dizziness Endocrine: absent: Diaphoresis Hemo/Lymphatic: absent: Adenopathy Physical Exam Vital Signs Reviewed: Yes Vital Signs Temp Pulse Resp BP Pulse Ox 05/15/17 15:11 53 L 18 153/68 H 98 05/15/17 13:25 98.1 F 50 L 18 177/84 H 97 Temperature: Afebrile Blood Pressure: Hypertensive Pulse: Bradycardic Respiratory Rate: Normal Appearance: Positive for: Well-Appearing, Non-Toxic, Comfortable Pain Distress: None Mental Status: Positive for: Alert and Oriented X 3 - Systems Exam Head: Present: Atraumatic, Normocephalic Pupils: Present: PERRL Extroacular Muscles: Present: EOMI Conjunctiva: Present: Normal Mouth: Present: Moist Mucous Membranes Neck: Present: Normal Range of Motion Respiratory/Chest: Present: Clear to Auscultation, Good Air Exchange. No: Respiratory Distress, Accessory Muscle Use Cardiovascular: Present: Regular Rate and Rhythm, Normal S1, S2. No: Murmurs Abdomen: Present: Normal Bowel Sounds. No: Tenderness, Distention, Peritoneal Signs Back: Present: Normal Inspection Upper Extremity: Present: Normal Inspection. No: Cyanosis, Edema Lower Extremity: Present: Normal Inspection. No: Edema Neurological: Present: GCS=15, CN II-XII Intact, Speech Normal Skin: Present: Warm, Dry, Normal Color. No: Rashes Psychiatric: Present: Alert, Oriented x 3, Normal Insight, Normal Concentration Medical Decision Making ED Course and Treatment: 05/15/17 13:59 Impression: 71 year old male complaining of right hand weakness for 3 days. Differential Diagnosis included but are not limited to: Radiculopathy vs. TIA Plan: -- EKG -- Chest X-ray -- Head CT w/o contrast -- Type and Screen -- Labs -- Reassess and disposition Prior Visits: Notes and results from previous visits were reviewed. Patient last seen in the ED on 04/07/17 for Left sided numbness/tingling. Patient was admitted to hospitalist care for further evaluation. Progress Notes: EKG: Ordered, reviewed, and independently interpreted the EKG. Rate : 51 BPM Rhythm : Sinus bradycardia Interpretation : T-wave inversions in lead 3 and AVF. Comparison : No change from 04/07/17 05/15/17 14:35 Chest X-ray: Creator : Soo Horn MD COMPARISON: 04/07/2017 FINDINGS: LUNGS: The lungs are well inflated and clear. PLEURA: No significant pleural effusion identified, no pneumothorax apparent. CARDIOVASCULAR:Normal. OSSEOUS STRUCTURES: No significant abnormalities. VISUALIZED UPPER ABDOMEN: Normal. OTHER FINDINGS: None. IMPRESSION: No active pulmonary disease. 05/15/17 14:40 CT Head without contrast: Creator : Micheal Camacho MD COMPARISON: 04/07/2017 FINDINGS: HEMORRHAGE: No intracranial hemorrhage. BRAIN:No mass effect or edema. Severe chronic microvascular changes are seen in the periventricular white matter VENTRICLES: Unremarkable. No hydrocephalus. CALVARIUM: Unremarkable. PARANASAL SINUSES: Unremarkable as visualized. No significant inflammatory changes. MASTOID AIR CELLS: Unremarkable as visualized. No inflammatory changes. OTHER FINDINGS: None. IMPRESSION: No acute findings 05/15/17 16:45 Patient states that his symptoms have almost completely improved. He still has 5 /5MS on both hands and all extremities. He has no numbness contrary to triage. Patient had an MRI and carotid doppler here about a month ago which I reviewed. 05/15/17 16:56 I discussed MRI results and this case with Dr. Nathaniel White, patient's neurologist who agrees that patient can follow up with him as an outpatient. Patient feels comfortable following up with Dr. White and Dr. Livingston and will return to the ED if symptoms worsen or any other concern. - Lab Interpretations Lab Results: 05/15/17 15:35 05/15/17 15:35 Lab Results 05/15/17 15:37: Blood Type Pending, Antibody Screen Pending, BBK History Checked Patient has bt 05/15/17 15:35: Sodium 144, Potassium 4.0, Chloride 105, Carbon Dioxide 29, Anion Gap 14, BUN 25 H, Creatinine 1.6 H, Est GFR ( Amer) 52, Est GFR ( Non-Af Amer) 43, Random Glucose 120 H, Calcium 9.7, Total Bilirubin 0.5, AST 44 , ALT 48, Alkaline Phosphatase 61, Troponin I 0.02, Total Protein 7.1, Albumin 4.3, Globulin 2.8, Albumin/Globulin Ratio 1.5 05/15/17 15:35: PT 10.5, INR 0.97, APTT 25.7 05/15/17 15:35: WBC 3.7 L, RBC 3.92, Hgb 11.6 L, Hct 36.1 L, MCV 92.1, MCH 29.6 , MCHC 32.1, RDW 14.9 H, Plt Count 104 L, MPV 10.3, Gran % 72.7 H, Lymph % (Auto ) 20.8 L, Mathews % (Auto) 5.7, Eos % (Auto) 0.8 L, Baso % (Auto) 0.0, Gran # 2.70 , Lymph # 0.8 L, Mathews # 0.2, Eos # 0.0, Baso # 0.00 05/15/17 15:19: POC Glucose (mg/dL) 128 H 05/15/17 14:45: POC Glucose (mg/dL) 92 I have reviewed the lab results: Yes - RAD Interpretation Radiology Orders: 05/15/17 14:06 CHEST PORTABLE [RAD] Stat 05/15/17 14:07 HEAD W/O CONTRAST [CT] Stat - Scribe Statement The provider has reviewed the documentation as recorded by the Joy Morales Provider Scribe Attestation: All medical record entries made by the Masteribe were at my direction and personally dictated by me. I have reviewed the chart and agree that the record accurately reflects my personal performance of the history, physical exam, medical decision making, and the department course for this patient. I have also personally directed, reviewed, and agree with the discharge instructions and disposition. Disposition/Present on Arrival - Present on Arrival Any Indicators Present on Arrival: No History of DVT/PE: No History of Uncontrolled Diabetes: No Urinary Catheter: No History of Decub. Ulcer: No History Surgical Site Infection Following: None - Disposition Have Diagnosis and Disposition been Completed?: Yes Diagnosis: Right hand weakness Disposition: HOME/ ROUTINE Disposition Time: 16:58 Patient Plan: Discharge Condition: IMPROVED Discharge Instructions (ExitCare): Weakness (ED) Additional Instructions: Mr Lucas, thank you for letting us take care of you today. Your provider was Dr. Dyer. You were treated for Hand Weakness. The emergency medical care you received today was directed at your acute symptoms. If you were prescribed any medication, please fill it and take as directed. It may take several days for your symptoms to resolve. Return to the Emergency Department if your symptoms worsen, do not improve, or if you have any other problems. Please contact your doctor or call one of the physicians/clinics you have been referred to that are listed on the Patient Visit Information form that is included in your discharge packet. Bring any paperwork you were given at discharge with you along with any medications you are taking to your follow up visit. Our treatment cannot replace ongoing medical care by a primary care provider (PCP) outside of the emergency department. Thank you for allowing the [facility] team to be part of your care today. If you had an X-Ray or CT scan: A Radiologist will review the ED reading if any change in treatment is needed we will contact you. If you had a blood, urine, or wound culture: It will take several days for the results, if any change in treatment is needed we will contact you. If you had an STI test: It will take 48 hours for the results. Please call after 1 week if you have not heard back. Referrals: Ching Livingston MD [Primary Care Provider] - Follow up with primary Agustin White MD [Staff Provider] - Follow up with primary Forms: [employer] ([place]), WORK NOTE
--- NOTE | 2017-05-15 14:33 | CT ---
PROCEDURE: CT HEAD WITHOUT CONTRAST. HISTORY: right hand weakness COMPARISON: 04/07/2017 TECHNIQUE: Axial computed tomography images were obtained through the head/brain without intravenous contrast. Radiation dose: Total exam DLP = 769 mGy-cm. This CT exam was performed using one or more of the following dose reduction techniques: Automated exposure control, adjustment of the mA and/or kV according to patient size, and/or use of iterative reconstruction technique. FINDINGS: HEMORRHAGE: No intracranial hemorrhage. BRAIN: No mass effect or edema. Severe chronic microvascular changes are seen in the periventricular white matter VENTRICLES: Unremarkable. No hydrocephalus. CALVARIUM: Unremarkable. PARANASAL SINUSES: Unremarkable as visualized. No significant inflammatory changes. MASTOID AIR CELLS: Unremarkable as visualized. No inflammatory changes. OTHER FINDINGS: None. IMPRESSION: No acute findings
--- NOTE | 2017-05-15 14:33 | RAD ---
HISTORY: Right hand weakness COMPARISON: 04/07/2017 FINDINGS: LUNGS: The lungs are well inflated and clear. PLEURA: No significant pleural effusion identified, no pneumothorax apparent. CARDIOVASCULAR: Normal. OSSEOUS STRUCTURES: No significant abnormalities. VISUALIZED UPPER ABDOMEN: Normal. OTHER FINDINGS: None. IMPRESSION: No active pulmonary disease.
--- NOTE | 2017-05-15 15:22 | CARD ---
APPROVED REPORT EKG Measurement Heart [id number] <Conclusion> Sinus bradycardia Otherwise normal ECG
[2017-05-15 15:43] LABS: EOS % 0.8 % (1.5-5.0); GRAN # 2.7 (1.4-6.5); GRAN % 72.7 % (50.0-68.0); HEMATOCRIT 36.1 % (42.0-52.0); LYMPH # 0.8 (1.2-3.4); LYMPH % 20.8 % (22.0-35.0); MEAN CELL VOLUME 92.1 fl (80.0-105.0); MEAN CORPUSCULAR HEMOGLOBIN 29.6 pg (25.0-35.0); MEAN CORPUSCULAR HGB CONC 32.1 g/dl (31.0-37.0); MEAN PLATELET VOLUME 10.3 fl (7.0-11.0); MONO # 0.2 (0.1-0.6); MONO % 5.7 % (1.0-6.0); RED CELL DISTRIBUTION WIDTH 14.9 % (11.5-14.5); WHITE BLOOD COUNT 3.7 10^3/ul (4.5-11.0)
[2017-05-15 15:55] LABS: INR 0.97 (0.93-1.08); PARTIAL THROMBOPLASTIN TIME 25.7 Seconds (23.7-30.8)
[2017-05-15 15:57] LABS: ALB/GLOB RATIO 1.5 (1.1-1.8); BILIRUBIN,TOTAL 0.5 mg/dL (0.2-1.3); CALCIUM 9.7 mg/dL (8.4-10.5); TOTAL PROTEIN 7.1 g/dL (5.8-8.3)
[2017-05-15 16:08] LABS: TROPONIN I 0.02 ng/mL
[2017-05-15 17:09] VITALS: BP 156/66; PULSE 52; O2SAT 99
== END 2017-05-15 17:09 | disposition home or self-care (01) ==
LOC: ED 12:24
DX: M62.81 Muscle weakness (generalized) (principal); I10 Essential (primary) hypertension; Z86.73 Personal history of transient ischemic attack (TIA), and cerebral infarction without residual deficits; C91.10 Chronic lymphocytic leukemia of B-cell type not having achieved remission

== ENCOUNTER 2017-06-26 19:11 | Inpatient (IN) | payer MEDICARE ==
[2017-06-26 19:38] LABS: BASO # 0.01 K/mm3 (0.0-2.0); BASO % 0.2 % (0.0-3.0); EOS # 0.1 (0.0-0.7); GRAN # 3.74 (1.4-6.5); GRAN % 73.3 % (50.0-68.0); HEMATOCRIT 34.4 % (42.0-52.0); LYMPH # 0.8 (1.2-3.4); LYMPH % 15.9 % (22.0-35.0); MEAN CELL VOLUME 92.5 fl (80.0-105.0); MEAN CORPUSCULAR HEMOGLOBIN 29.8 pg (25.0-35.0); MEAN CORPUSCULAR HGB CONC 32.3 g/dl (31.0-37.0); MEAN PLATELET VOLUME 10.8 fl (7.0-11.0); MONO # 0.4 (0.1-0.6); MONO % 8.6 % (1.0-6.0); RED CELL DISTRIBUTION WIDTH 14.2 % (11.5-14.5); WHITE BLOOD COUNT 5.1 10^3/ul (4.5-11.0)
[2017-06-26 19:39] LABS: VENOUS BLOOD PH 7.33 (7.32-7.43)
[2017-06-26 20:01] LABS: INR 1.06 (0.93-1.08); PARTIAL THROMBOPLASTIN TIME 28.2 Seconds (23.7-30.8)
[2017-06-26 20:02] LABS: ALB/GLOB RATIO 1.1 (1.1-1.8); BILIRUBIN,TOTAL 0.5 mg/dL (0.2-1.3); CALCIUM 9.9 mg/dL (8.4-10.5); MAGNESIUM 2.7 mg/dL (1.7-2.2); POTASSIUM 4.7 mmol/L (3.6-5.0); TOTAL PROTEIN 7.7 g/dL (5.8-8.3)
[2017-06-26 20:13] LABS: TROPONIN I 0.02 ng/mL
--- NOTE | 2017-06-26 20:20 | ED PDOC ---
Arrival/HPI - General Chief Complaint: Shortness Of Breath Time Seen by Provider: 06/26/17 19:17 Historian: Patient - History of Present Illness Narrative History of Present Illness (Text): 06/26/17 20:16 71 y.o. male whose past medical history includes hypertension, hyperlipidemia, CKD, recent TIA, and stage IV lymphocytic lymphoma who is sent from Dr. Garcia' s office for sob. Per Dr. Garcia, the patient had a negative CT neck, chest, abdomen, and pelvis on 05/09/17 but last week had another CT chest showing LLL effusion/infiltrate/atx; the patient says that he has been progressively developing sob and has a left lateral rib pain that is worse with deep breathing. He has been having chills with generalized weakness and poor appetite. No n/v/d or abd pain or urinary symptoms. Time/Duration: < week Past Medical History - Infectious Disease Hx of Infectious Diseases: None - Cardiac Hx Cardiac Disorders: Yes Hx Hypertension: Yes - Pulmonary Hx Respiratory Disorders: No - Neurological Hx Neurological Disorder: No Hx Transient Ischemic Attacks (TIA): Yes (04-07-17) - HEENT Hx HEENT Disorder: Yes - Renal Hx Renal Disorder: No - Endocrine/Metabolic Hx Endocrine Disorders: No - Hematological/Oncological Hx Blood Disorders: Yes (CLL NON HODGKINS) - Integumentary Hx Dermatological Disorder: No - Musculoskeletal/Rheumatological Hx Musculoskeletal Disorders: Yes Hx Falls: No Hx Gout: Yes - Gastrointestinal Hx Gastrointestinal Disorders: Yes (CONSTIPATION) - Genitourinary/Gynecological Hx Genitourinary Disorders: No - Psychiatric Hx Psychophysiologic Disorder: No Hx Emotional Abuse: No Hx Physical Abuse: No Hx Substance Use: No - Surgical History Hx Cardiac Catheterization: Yes Hx Orthopedic Surgery: Yes (right knee) - Anesthesia Hx Anesthesia: Yes Hx Anesthesia Reactions: No Hx Malignant Hyperthermia: No - Suicidal Assessment Feels Threatened In Home Enviroment: No Family/Social History Family/Social History: Unknown Family HX Smoking Status: Never Smoked Hx Alcohol Use: Yes (OCCASIONAL WINE) Hx Substance Use: No Allergies/Home Meds Allergies/Adverse Reactions: Allergies No Known Allergies Allergy (Verified 06/26/17 19:24) Home Medications: Home Meds Medication Instructions Recorded Confirmed Allopurinol [Zyloprim] 100 mg PO BID 04/07/17 06/26/17 Aspirin/Dipyridamole [Aggrenox 1 ea PO BID 04/07/17 06/26/17 25-200 mg] Atenolol [Tenormin] 25 mg PO HS 04/07/17 06/26/17 Atenolol [Tenormin] 50 mg PO DAILY 04/07/17 06/26/17 Atorvastatin [Lipitor] 20 mg PO DAILY 04/07/17 06/26/17 Doxazosin [Cardura] 8 mg PO BID 04/07/17 06/26/17 Telmisartan [Micardis] 80 mg PO DAILY 04/07/17 06/26/17 hydrALAZINE [hydralazine 100 mg PO BID 04/07/17 06/26/17 Hydrochloride] Review of Systems - Physician Review All systems were reviewed & negative as marked: Yes - Review of Systems Constitutional: Fatigue, Other (chills) Eyes: Normal ENT: Normal Respiratory: SOB, Cough (dry) Cardiovascular: Normal Gastrointestinal: Appetite Changes. absent: Abdominal Pain, Diarrhea, Nausea, Vomiting Genitourinary Male: Normal Musculoskeletal: Normal Skin: Normal Neurological: Other (recent TIA - no residual deficits). absent: Headache, Dizziness Endocrine: Normal Hemo/Lymphatic: Normal Psychiatric: Normal Physical Exam Vital Signs Temp Pulse Resp BP Pulse Ox 06/26/17 20:56 101.4 F H 06/26/17 20:00 101.4 F H 18 95 06/26/17 19:15 100.2 F H 73 22 123/59 L 94 L Temperature: Febrile Blood Pressure: Normal Pulse: Regular Respiratory Rate: Tachypneic Appearance: Positive for: Ill-Appearing Pain Distress: None Mental Status: Positive for: Alert and Oriented X 3 - Systems Exam Head: Present: Atraumatic, Normocephalic Pupils: Present: PERRL Conjunctiva: Present: Normal Mouth: Present: Moist Mucous Membranes Pharnyx: Present: Normal. No: ERYTHEMA, EXUDATE Neck: Present: Normal Range of Motion Respiratory/Chest: Present: Wheezes, Decreased Breath Sounds, Rales, Tachypneic. No: Accessory Muscle Use Cardiovascular: Present: Regular Rate and Rhythm, Normal S1, S2. No: Murmurs Abdomen: Present: Distention, Normal Bowel Sounds. No: Tenderness, Peritoneal Signs Back: Present: Normal Inspection Upper Extremity: Present: Normal Inspection. No: Cyanosis, Edema Lower Extremity: Present: Normal Inspection. No: Edema Neurological: Present: GCS=15, CN II-XII Intact, Speech Normal Skin: Present: Warm, Dry, Normal Color. No: Rashes Psychiatric: Present: Alert, Oriented x 3, Normal Insight, Normal Concentration Medical Decision Making ED Course and Treatment: 06/26/17 20:30 71 y.o. male with history of lymphoma with sob and fever of 101.4. Differential: pneumonia/sepsis vs. worsening pleural effusion vs. PE 06/26/17 20:37 EKG: NSR @ 73 with inverted T waves V6 that was not present on previous ekg. normal intervals; normal axis; no other ST/T changes c/w 05/15/17. LE dopplers: negative for DVT 06/26/17 21:52 EXAM: CT Chest Without Intravenous Contrast FINDINGS: Limitations: Lack of intravenous contrast. Motion artifact - mild. Lungs: Small peripheral consolidation with air bronchograms within LEFT lower lobe with associated volume loss. Minimal peripheral consolidation within LEFT upper lobe. Pleural space: [id number]-eu-mlohvqgc, partially loculated LEFT pleural effusion. No pneumothorax. Heart: Mild cardiomegaly. No significant pericardial effusion. Coronary artery calcifications. Mediastinum: Small hiatal hernia. Bones/joints: No acute fracture. Soft tissues: Unremarkable. Vasculature: Ubyu-rz-uxlqimiy atherosclerotic disease. No aneurysm. Lymph nodes: Several subcentimeter short axis axillary lymph nodes. Few subcentimeter short axis mediastinal lymph nodes. Limited evaluation for hilar lymph nodes due to lack of intravenous contrast. Liver: Fatty infiltration. Small calcification. Adrenals: Mild hypertrophy of adrenal glands. IMPRESSION: 1. LEFT pleural effusion with LEFT lower lobe atelectasis. Superimposed pneumonia not excluded. 2. Probable LEFT upper lobe atelectasis. 3. Incidental/non-acute findings are described above 06/26/17 23:04 EXAM: NM Lung Perfusion and Ventilation Scan FINDINGS: Ventilation: Moderate ventilation defect LEFT lower lobe. Perfusion: Moderate perfusion defect LEFT lower lobe. Other findings: Consolidation within LEFT lower lobe on chest radiograph. IMPRESSION: 1. Intermediate probability for pulmonary embolism. Consider CTA. Given fever and noted CT result, will need to start antibiotics for peumonia - will consider nosocomial cause given recent hospitalization; started on maxipime and vanco. Lactic acid is 1.9; not a code sepsis protocol. V/Q scan is intermediate with negative LE doppler; started on heparin. Renal function is also noted to be worse with creatinine up to 3.5; started on ivf. Case discussed with who is aware and agrees with the plan to admit patient to telemetry for dyspnea and pneumonia. Accepts patient under her service with , Dr. Ernst and Dr. Garcia on consult. - Lab Interpretations Lab Results: 06/26/17 19:25 06/26/17 19:25 Lab Results 06/26/17 19:25: Troponin I 0.02, Triglycerides 151, Cholesterol 119 L, LDL Cholesterol Direct 48, HDL Cholesterol 22 L 06/26/17 19:25: pO2 24 L, VBG pH 7.33, VBG pCO2 53.0, VBG HCO3 27.9, VBG Total CO2 29.5 H, VBG O2 Sat (Calc) 44.8, VBG Base Excess 1.0, VBG Potassium 4.8, Sodium 137.0, Chloride 102.0, Glucose 133 H, Lactate 1.9, FiO2 21.0, Venous Blood Potassium 4.8 06/26/17 19:25: Sodium 142, Chloride 100, Potassium 4.7, Carbon Dioxide 27, Anion Gap 20, BUN 72 H, Creatinine 3.5 H, Est GFR ( Amer) 21, Est GFR ( Non-Af Amer) 17, Random Glucose 133 H, Calcium 9.9, Magnesium 2.7 H, Total Bilirubin 0.5, AST 121 H, ALT 135 H, Alkaline Phosphatase 85, Lactate Dehydrogenase 548, Total Creatine Kinase 129, Troponin I 0.02, NT-Pro-B Natriuret Pep 466 H, Total Protein 7.7, Albumin 4.1, Globulin 3.6, Albumin/ Globulin Ratio 1.1, Lipase 271 06/26/17 19:25: PT 11.4, INR 1.06, APTT 28.2 06/26/17 19:25: WBC 5.1 D, RBC 3.72, Hgb 11.1 L, Hct 34.4 L, MCV 92.5, MCH 29.8 , MCHC 32.3, RDW 14.2, Plt Count 221, MPV 10.8, Gran % 73.3 H, Lymph % (Auto) 15.9 L, [place] % (Auto) 8.6 H, Eos % (Auto) 2.0, Baso % (Auto) 0.2, Gran # 3.74, Lymph # 0.8 L, [place] # 0.4, Eos # 0.1, Baso # 0.01 - RAD Interpretation Radiology Orders: 06/26/17 19:19 CHEST PORTABLE [RAD] Stat 06/26/17 19:56 CHEST W/O CONTRAST [CT] Stat DUPLEX LOWER EXTRM VEIN BILAT [US] Stat 06/26/17 19:57 LUNG PERF & VENT SCAN [NM] Stat - Medication Orders Current Medication Orders: Acetaminophen (Tylenol 325mg Tab) 650 mg PO Q6H PRN PRN Reason: Fever >100.4 F Albuterol/Ipratropium (Duoneb 3 Mg/0.5 Mg (3 Ml) Ud) 3 ml IH Q2H PRN PRN Reason: Shortness of Breath Albuterol/Ipratropium (Duoneb 3 Mg/0.5 Mg (3 Ml) Ud) 3 ml IH [id number] DARVIN Aspirin (Ecotrin) 81 mg PO 0800 DARVIN Atenolol (Tenormin) 25 mg PO HS DARVIN Atenolol (Tenormin) 50 mg PO DAILY DARVIN Atorvastatin Calcium (Lipitor) 20 mg PO DAILY DARVIN Dipyridamole/Aspirin (Aggrenox 25-200 Mg) 1 ea PO BID DARVIN Doxazosin Mesylate (Cardura) 8 mg PO BID DARVIN Hydralazine HCl (Apresoline) 50 mg PO BID DARVIN Sodium Chloride (Sodium Chloride 0.9%) 1,000 mls @ 75 mls/hr IV .[id number] STA Stop: 06/27/17 09:46 Last Admin: 06/26/17 20:56 Dose: 75 mls/hr eMAR Start Stop Document 06/26/17 20:56 RD (Rec: 06/26/17 20:56 RD [id number]) Intravenous Solution Start Date 06/26/17 Start Time 20:56 Azithromycin (Zithromax 500mg In Ns) 500 mg in 250 mls @ 167 mls/hr IVPB DAILY DARVIN PRN Reason: Protocol Cefepime HCl 0.5 gm/ Sodium (Chloride) 100 mls @ 100 mls/hr IVPB Q24H DARVIN PRN Reason: Protocol Heparin Sodium/Dextrose (Heparin 25,000 Units/250ml In D5w) 25,000 units in 250 mls @ 19.187 mls/hr IV .Q13H2M PRN; Protocol; 18 UNITS/KG/HR PRN Reason: ADJUST RATE PER PROTOCOL Methylprednisolone (Solu-Medrol) 40 mg IV Q8 DARVIN Ondansetron HCl (Zofran Inj) 4 mg IVP Q6H PRN PRN Reason: Nausea/Vomiting Pantoprazole Sodium (Protonix Ec Tab) 40 mg PO 0600 DARVIN Discontinued Medications Acetaminophen (Tylenol 325mg Tab) 975 mg PO STAT STA Stop: 06/26/17 20:27 Last Admin: 06/26/17 20:56 Dose: 975 mg MAR Pain/Vitals Document 06/26/17 20:56 RD (Rec: 06/26/17 20:56 RD [id number]) Vitals Temperature (97.6 F-99.6 F) 101.4 F Temperature Source Rectal Guaifenesin (Robitussin) 400 mg PO ONCE STA Stop: 06/26/17 20:24 Last Admin: 06/26/17 20:56 Dose: 400 mg Heparin Sodium (Porcine) (Heparin) 5,000 units SC Q8 DARVIN PRN Reason: Protocol Last Admin: 06/26/17 22:48 Dose: 5,000 units Subcutaneous Administrations Document 06/26/17 22:48 RD (Rec: 06/26/17 22:48 RD [id number]) Injection Site MAR Injection Site Right Arm Charges for Administration # of Subcutaneous Administrations 1 Hydralazine HCl (Apresoline) 100 mg PO BID [facility] Vancomycin HCl (Vancomycin 1gm) 1 gm in 250 mls @ 167 mls/hr IVPB STAT STA PRN Reason: Protocol Stop: 06/26/17 23:29 Last Admin: 06/26/17 22:37 Dose: 167 mls/hr eMAR Start Stop Document 06/26/17 22:37 RD (Rec: 06/26/17 22:37 RD [id number]) Intravenous Solution Start Date 06/26/17 Start Time 22:37 End Date 06/27/17 End time 00:07 Total Infusion Time 90 Ipratropium [place] (Atrovent) 0.5 mg IH STAT STA Stop: 06/26/17 20:25 Last Admin: 06/26/17 21:27 Dose: 0.5 mg Ipratropium [place] (Atrovent) 0.5 mg IH STAT STA Stop: 06/26/17 20:27 Last Admin: 06/26/17 22:37 Dose: 0.5 mg Levalbuterol HCl (Xopenex) 1.25 mg IH STAT STA Stop: 06/26/17 20:25 Last Admin: 06/26/17 21:27 Dose: 1.25 mg Levalbuterol HCl (Xopenex) 1.25 mg IH STAT STA Stop: 06/26/17 20:26 Last Admin: 06/26/17 22:37 Dose: 1.25 mg Methylprednisolone (Solu-Medrol) 125 mg IVP STAT STA Stop: 06/26/17 20:24 Last Admin: 06/26/17 20:55 Dose: 125 mg IVP Administration Document 06/26/17 20:55 RD (Rec: 06/26/17 20:55 RD [id number]) Charges for Administration # of IVP Administrations 1 Disposition/Present on Arrival - Present on Arrival Any Indicators Present on Arrival: No History of DVT/PE: No History of Uncontrolled Diabetes: No Urinary Catheter: No History of Decub. Ulcer: No History Surgical Site Infection Following: None - Disposition Have Diagnosis and Disposition been Completed?: Yes Diagnosis: Pneumonia, Pleural effusion, Dyspnea, Acute on chronic renal insufficiency Disposition: HOSPITALIZED Disposition Time: 20:05 Patient Plan: Admission, Telemetry Condition: FAIR
[2017-06-26] MEDS ORDERED: guaiFENesin 200 mg/10 ml Syrup UD PO STA (20:23)
[2017-06-26] MEDS ORDERED: Ipratropium 0.02% Inhal Soln (0.5 mg/2.5 ml) UD IH STA ×2 (20:24→20:26)
[2017-06-26] MEDS ORDERED: Levalbuterol 1.25 MG/3 ML Inhal Soln UD IH STA ×2 (20:24→20:25)
[2017-06-26] MEDS ORDERED: Sodium Chloride 0.9% 1,000 ML IV STA (20:27)
--- NOTE | 2017-06-26 21:51 | CT ---
EXAM: CT Chest Without Intravenous Contrast CLINICAL HISTORY: 71 years old, male; Signs and symptoms; Shortness of breath; Additional info: Lung ca - R/O pneumonia, effusion TECHNIQUE: Axial computed tomography images of the chest without intravenous contrast. All CT scans at this facility use one or more dose reduction techniques, viz.: automated exposure control; ma/kV adjustment per patient size (including targeted exams where dose is matched to indication; i.e. head); or iterative reconstruction technique. MIP reconstructed images were created and reviewed. Coronal and sagittal reformatted images were created and reviewed. COMPARISON: CT - CHEST W/O CONTRAST 06/19/2017 4:32:37 PM FINDINGS: Limitations: Lack of intravenous contrast. Motion artifact - mild. Lungs: Small peripheral consolidation with air bronchograms within LEFT lower lobe with associated volume loss. Minimal peripheral consolidation within LEFT upper lobe. Pleural space: Jfnnq-qd-anpynvbz, partially loculated LEFT pleural effusion. No pneumothorax. Heart: Mild cardiomegaly. No significant pericardial effusion. Coronary artery calcifications. Mediastinum: Small hiatal hernia. Bones/joints: No acute fracture. Soft tissues: Unremarkable. Vasculature: Grnx-nn-ihigqsnd atherosclerotic disease. No aneurysm. Lymph nodes: Several subcentimeter short axis axillary lymph nodes. Few subcentimeter short axis mediastinal lymph nodes. Limited evaluation for hilar lymph nodes due to lack of intravenous contrast. Liver: Fatty infiltration. Small calcification. Adrenals: Mild hypertrophy of adrenal glands. IMPRESSION: 1. LEFT pleural effusion with LEFT lower lobe atelectasis. Superimposed pneumonia not excluded. 2. Probable LEFT upper lobe atelectasis. 3. Incidental/non-acute findings are described above.
[2017-06-26] MEDS ORDERED: Cefepime 1gm in NS 100ml 1 GM/100 ML BAG IVPB SCH (22:00)
[2017-06-26] MEDS ORDERED: Vancomycin 1gm in NS 250ml 1 GM/250 ML BAG IVPB STA (22:00)
[2017-06-26] MEDS ORDERED: Albuterol-Ipratrop 3 mg / 0.5 (3 ml) UD IH PRN (22:21)
--- NOTE | 2017-06-26 22:52 | NM ---
EXAM: NM Lung Perfusion and Ventilation Scan CLINICAL HISTORY: 71 years old, male; Signs and symptoms; Shortness of breath; Additional info: Ca, SOB - R/O pe TECHNIQUE: Nuclear Medicine ventilation and perfusion images of the lungs were obtained in multiple projections following inhalation of 40.0 mCi of Tc99m DTPA aerosol and injection of 4.0 mCi of Tc99m MAA. COMPARISON: DX - CHEST PORTABLE 06/26/2017 7:27:45 PM FINDINGS: Ventilation: Moderate ventilation defect LEFT lower lobe. Perfusion: Moderate perfusion defect LEFT lower lobe. Other findings: Consolidation within LEFT lower lobe on chest radiograph. IMPRESSION: 1. Intermediate probability for pulmonary embolism. Consider CTA.
[2017-06-26] MEDS: Heparin 25,000units in D5W 25,000 UNITS/250 ML BAG IV PRN (23:20)
[2017-06-26 23:41] LABS: TROPONIN I 0.02 ng/mL
[2017-06-27] MEDS: Cefepime 0.5 GM in Sodium Chloride 0.9% 100 ML IVPB SCH ×2 (00:33→22:22)
[2017-06-27] MEDS: Aspirin-Dipyridamole 200-25 mg ER Cap PO SCH ×3 (01:39→17:49)
[2017-06-27] MEDS: Albuterol-Ipratrop 3 mg / 0.5 (3 ml) UD IH SCH ×5 (02:47→20:00)
--- NOTE | 2017-06-27 03:19 | HP ---
HISTORY OF PRESENT ILLNESS: The patient is a 71-year-old known to me from office practice. The patient has been sick for almost a week. He saw me in the office. He was complaining of cough and congestion. He was given several days of Ceftin 500 twice a day. The patient stated he felt little bit better, but his cough persisted, so he followed with me after a week and a half in the middle of May. I gave him second round of antibiotics. He was given Levaquin and Medrol Dosepak and i also gave him prescription for CT scan to just rule out pneumonia since he is immunocompromised. The patient did start his round of antibiotics and steroid. On 3rd or 4th day, he felt sick. He was found confused and disoriented in his car, so ambulance was called, he was taken to the [facility]. By the time he reached [facility], he was doing well, so he was treated as a TIA. His MRI of the brain and other workup was negative, so he went to see Dr. Garcia. Today, he was found to be short of breath, coughing, and wheezing, so he was directed to emergency room for further evaluation and management. The patient complained of decreased appetite. The patient also complained of left-sided chest wall pain, gets worse with taking deep breath, coughing and sneezing. Complained of having chills, having generalized weakness. He lost appetite and lost weight. No hemoptysis or hematemesis. PAST MEDICAL HISTORY: Significant for: 1. Uncontrolled hypertension. 2. Hyperlipidemia. 3. Chronic kidney disease. 4. Stage IV lymphocytic leukemia. ALLERGIES: NOT ALLERGIC TO ANY MEDICATIONS. MEDICATIONS AT HOME: He is on hydralazine 100 mg twice a day, Micardis 80 mg daily, Cardura 8 mg twice a day, atorvastatin 20 mg daily, atenolol 50 mg daily and 25 at bedtime, he is on Aggrenox 1 tablet daily, he takes allopurinol 100 mg twice a day. SOCIAL HISTORY: Denies smoking or drinking. Socially drinks here and there. 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 REVIEW OF SYSTEMS: Significant for generalized weakness, cough, and congestion. Feeling shortness of breath and loss of appetite. PHYSICAL EXAMINATION GENERAL: He has mild shortness of breath. VITAL SIGNS: He has temperature of 101.4 rectally in the ER, pulse 73, respirations 18 and blood pressure 123/59. LUNGS: Bilaterally few expiratory rhonchi, decreased breath sounds at bases, left more than the right. HEART: S1 and S2, audible. ABDOMEN: Soft, obese and nontender. No rebound. No guarding. NEUROLOGIC: He is awake and alert, able to communicate. EXTREMITIES: Bilateral leg no edema. LABORATORY DATA: WBC is 5.1, hemoglobin 11, hematocrit 34, and platelets of 221. PT 11.4, INR 1.06. His VBG shows the pH of 7.33, CO2 of 53, bicarb 27, FiO2 of 21%. Chemistry: Sodium 142, potassium 4.7, chloride 100, CO2 of 27, BUN 72, creatinine 3.5, and blood sugar 133. 135, BNP is 466. He had CT scan of the chest done that shows left-sided pleural effusion with atelectasis. ASSESSMENT: 1. Left upper lobe atelectasis. 2. Left lower lobe pneumonia. 3. Acute on chronic renal failure. 4. History of hypertension. 5. Chronic lymphocytic leukemia. 6. Morbid obesity. PLAN: The patient will be admitted on telemetry and start him on nebulizer treatment. Blood culture and urine cultures are sent. I will start empirically on Maxipime and Zithromax. I will monitor his renal function. He has been started on IV steroids. I will request Dr. Simmons for consult. His echocardiogram on 04/08/2017, shows left ventricle is normal in size, concentric LVH with EF of 65%. Ching Livingston MD
[2017-06-27 04:04] VITALS: BMI 31.5
[2017-06-27] MEDS: MethylPREDNISolone 40 mg Vial IV SCH ×3 (05:10→21:16)
[2017-06-27] MEDS: Pantoprazole 40 mg EC Tab PO SCH (05:10)
[2017-06-27 08:01] LABS: ALB/GLOB RATIO 1.1 (1.1-1.8); BILIRUBIN,TOTAL 0.5 mg/dL (0.2-1.3); CALCIUM 9.1 mg/dL (8.4-10.5); PHOSPHOROUS 5.7 mg/dL (2.5-4.5); TOTAL PROTEIN 6.6 g/dL (5.8-8.3)
--- NOTE | 2017-06-27 08:09 | RAD ---
HISTORY: sob COMPARISON: 05/15/2017 FINDINGS: LUNGS: No active pulmonary disease. PLEURA: No significant pleural effusion identified, no pneumothorax apparent. CARDIOVASCULAR: Normal. OSSEOUS STRUCTURES: No significant abnormalities. VISUALIZED UPPER ABDOMEN: Normal. OTHER FINDINGS: None. IMPRESSION: No active disease.
[2017-06-27 08:20] LABS: URINE BILIRUBIN NEGATIVE (NEGATIVE); URINE BLOOD NEGATIVE (NEGATIVE); URINE GLUCOSE (UA) NEGATIVE (NEGATIVE); URINE KETONE NEGATIVE (NEGATIVE); URINE LEUKOCYTE ESTERASE NEGATIVE Leu/uL (NEGATIVE); URINE PROTEIN TRACE mg/dL (<30 mg/dL); URINE UROBILINOGEN 0.2 E.U./dL (<1 E.U./dL)
[2017-06-27 08:21] LABS: URINE APPEARANCE CLEAR (CLEAR); URINE COLOR YELLOW (YELLOW)
[2017-06-27 08:27] LABS: URINE RBC NEGATIVE /hpf (0-2); URINE WBC 0 - 2 /hpf (0-6)
[2017-06-27 09:06] LABS: FREE T4 1.48 ng/dL (0.78-2.19)
[2017-06-27] MEDS ORDERED: Non Formulary Medication (Telmisartan [Micardis] 80 MG) PO SCH (10:00)
[2017-06-27] MEDS: Azithromycin 500MG/NS 250ml 500 MG/250 ML BAG IVPB SCH (10:30)
[2017-06-27 10:47] LABS: THYROID STIMULATING HORMONE 0.4 MIU/ml (0.46-4.68)
--- NOTE | 2017-06-27 11:44 | CARD ---
APPROVED REPORT EKG Measurement Heart [id number] <Conclusion> Normal sinus rhythm Nonspecific T wave abnormality Abnormal ECG
[2017-06-27] MEDS: Heparin 25,000units in D5W 25,000 UNITS/250 ML BAG IV PRN ×2 (13:24→21:17)
--- NOTE | 2017-06-27 13:37 | PN ---
SUBJECTIVE: The patient is 71-year-old black male, who came to emergency room because of increasing shortness of breath that has been going on for almost a month, got worse. He was seen by Dr. Garcia, who referred him to emergency room for further evaluation. PHYSICAL EXAMINATION: GENERAL: Today, he still looks short of breath. VITAL SIGNS: He is afebrile, pulse 61, respirations 20 and blood pressure 178/85. LUNGS: Bilateral expiratory rhonchi. Decreased breath sound at bases. HEART: S1 and S2 audible. ABDOMEN: Soft, obese, nontender. No rebound, no guarding. NEUROLOGICAL: The patient is awake and alert, able to communicate. EXTREMITIES: Bilateral leg no edema. LABORATORY DATA: Chemistry: Sodium 139, potassium 5.0, chloride 102, CO2 of 22, BUN 71, creatinine 3.0, blood sugar 253, AST 76, ALT 117. Urinalysis is negative. He has VQ scan done that is positive for intermediate probability for pulmonary embolism. Cannot do CT angio because of his renal insufficiency. Bilateral leg Doppler is pending. CT scan of the chest shows pleural effusion with small peripheral consolidation with air bronchogram in the left lower lobe along with left pleural effusion, several subcentimeter lymph nodes including axillary and mediastinal, left upper lobe atelectasis. ASSESSMENT: 1. Community-acquired pneumonia. 2. Pleural effusion. 3. Mbfqz-dy-lsnjien renal failure. 4. History of lymphocytic leukemia. 5. History of transient ischemic attack. 6. Hypertension. PLAN: Currently, the patient is on Maxipime. He is on IV heparin. He is getting IV fluids. He is on steroid. He is on Zithromax. We will monitor his electrolytes and CBC. Discuss with Dr. Garcia. We will talk to other consultants. Ching Livingston MD
--- NOTE | 2017-06-27 19:56 | US ---
HISTORY: Leg pain and swelling. Evaluate for DVT PHYSICIAN(S): Sha Dickey MD. TECHNIQUE: Duplex sonography and color-flow Doppler with graded compression were used to evaluate the deep venous systems of both lower extremities. FINDINGS: The visualized deep venous systems of both lower extremities are sonographically normal and compressible. Normal wave forms and augmentation are seen. There is no sonographic evidence for deep venous thrombosis in the visualized segments of both lower extremities. IMPRESSION: No sonographic evidence for deep venous thrombosis in the visualized segments of both lower extremities.
--- NOTE | 2017-06-27 23:09 | CON ---
DATE: 06/27/2017 The patient was seen earlier today in room 266, bed 2. CHIEF COMPLAINT: Fever and cough, times several days. HISTORY OF PRESENT ILLNESS: This is a 71-year-old male with past medical history significant for kidney disease; hypertension; chronic lymphocytic leukemia, had treatment 1 year ago; and obesity with BMI of 31. The patient also with history of gout, history of right knee surgery and cardiac catheterization and the patient has no known allergies, who was admitted now after being treated as outpatient for pulmonary symptoms with Ceftin. The patient now admitted with a fever and cough. The patient was admitted had progressively develop shortness of breath and pleuritic pain. The patient was given Ceftin as outpatient without any improvement. He denies any nausea, vomiting. No abdominal pain. No dysuria or frequency. No new joint pain. PAST MEDICAL HISTORY: Significant for hypertension; kidney disease; CLL; obesity, BMI of 31; and gout. PAST SURGICAL HISTORY: Significant for right knee surgery and cardiac catheterization. ALLERGIES: THE PATIENT HAS NO KNOWN ALLERGIES TO ANY ANTIBIOTICS. PAIN MEDICATIONS: At home reveals the patient to be on hydralazine, Cardura, Lipitor, Tenormin, aspirin and allopurinol. PHYSICAL EXAMINATION: GENERAL: The patient is in bed, answering questions appropriately. VITAL SIGNS: With a temperature of 97, T max is 101.4, blood pressure is 140/73 and respiratory rate was 22 with a heart rate of 71. HEENT: Examination of HEENT is unremarkable. NECK: Supple. LUNGS: Have decreased breath sounds. HEART: Normal S1 and S2. ABDOMEN: [place]manation is soft, nontender. No organomegaly. No rebound or guarding. No masses. LABORATORY EXAMINATION: Reveals a white count of 5.1, hemoglobin of 11, platelets of 221 and granulocytosis is 73% and coagulation is noted. Chemistries reveals a BUN of 72, creatinine of 3.5, AST is 121, ALT of 135. BMP is 466. Urinalysis reveals the patient has trace protein with 0 to 2 wbcs. Cultures are pending. IMAGING STUDIES: Chest x-ray is reported to be negative. CAT scan is reported left lower lobe infiltrate. The patient had an EKG, the results are not available at this time and lower extremity ultrasound also results are not available. ASSESSMENT AND PLAN: He is a 71-year-old wall obese male with a BMI of 31, hypertension, kidney disease, chronic lymphocytic leukemia status post treatment from 1 year ago with gout, presenting now with a temperature of 101.4, respiratory rate of 22 and CAT scan findings were infiltrating; 1. Severe sepsis with healthcare-associated pneumonia with acute kidney injury on top of chronic kidney injury. The creatinine has changed from last admission 1.6 to 3.5 and we will treat the patient with Maxipime and azithromycin. We will check on the blood cultures, urine cultures, sputum culture and urine for Legionella antigen, procalcitonin and will make further recommendations upon availability of the initial workup results including the acute kidney injury on top of chronic kidney injury, follow closely with you. The patient does meet criteria for metabolic syndrome; his triglyceride is 151 and high, HDL is 22, and his obesity. 2. Hypertension, on hypertension medication and meets criteria for metabolic syndrome. Jorge Simmons MD
[2017-06-28] MEDS: Albuterol-Ipratrop 3 mg / 0.5 (3 ml) UD IH SCH ×4 (02:30→20:55)
[2017-06-28] MEDS: Heparin 25,000units in D5W 25,000 UNITS/250 ML BAG IV PRN (02:37)
[2017-06-28] MEDS: Pantoprazole 40 mg EC Tab PO SCH (05:46)
[2017-06-28] MEDS: MethylPREDNISolone 40 mg Vial IV SCH ×2 (05:46→13:10)
[2017-06-28 06:13] LABS: GRAN # 5.66 (1.4-6.5); GRAN % 88.3 % (50.0-68.0); HEMATOCRIT 31.8 % (42.0-52.0); LYMPH # 0.5 (1.2-3.4); LYMPH % 7.6 % (22.0-35.0); MEAN CELL VOLUME 90.6 fl (80.0-105.0); MEAN CORPUSCULAR HEMOGLOBIN 29.1 pg (25.0-35.0); MEAN CORPUSCULAR HGB CONC 32.1 g/dl (31.0-37.0); MEAN PLATELET VOLUME 10.6 fl (7.0-11.0); MONO # 0.3 (0.1-0.6); MONO % 4.1 % (1.0-6.0); RED CELL DISTRIBUTION WIDTH 13.8 % (11.5-14.5); WHITE BLOOD COUNT 6.4 10^3/ul (4.5-11.0)
[2017-06-28 06:36] LABS: ALB/GLOB RATIO 1.1 (1.1-1.8); BILIRUBIN,TOTAL 0.3 mg/dL (0.2-1.3); CALCIUM 9.4 mg/dL (8.4-10.5); POTASSIUM 4.7 mmol/L (3.6-5.0); TOTAL PROTEIN 6.9 g/dL (5.8-8.3)
--- NOTE | 2017-06-28 06:46 | CON ---
DATE: LOCATION: The patient is in room 266, bed 2. HISTORY OF PRESENT ILLNESS: This is a 71-year-old male who is well known to me from prior admissions and prior visits to the office. 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 Subsequent to that, the patient apparently had developed an upper respiratory tract infection and saw his PMD, Dr. Livingston was given antibiotics, completed one week of this and then came back to her. He was not still completely improved. For the second course of antibiotics, which I am not sure whether he was able to complete it or not, but the patient subsequent to that got admitted to [facility] as he was found sitting in his car, rambling, not knowing where he was and the working diagnosis at the time of admission to [facility] they report that he had a transient ischemic attack based on the workup, though the MRI and the carotid Doppler's were negative. The patient was treated conservatively, was improved. He was not treated for any underlying lung infections during his hospital stay at the [facility]. The patient is discharged, subsequent to the discharge, the patient has come to see me and I have told him that after interviewing him and examining him, that even though he was better from the TIA point of view that it would be prudent for him to make a followup appointment to see the [facility]ist and his primary medical doctor and my concern at that time was just switch him from Aggrenox to a different pill such as either Plavix, Effient, or Brilinta after seeing the other consultants. In the meantime, I gave him a slip for CAT scan of the chest without contrast given the fact that he had mild kidney dysfunction for many years, to see what the natures of his infection was as he was still coughing when he was in the office. Subsequent to that, he had a CAT scan of the chest. The patient had gone to see Dr. Banuelos at [facility], he is going to followup for his lymphoma. She had called me and she also agreed to the fact that probably he needs more neurologic and cardiac workup and then come back to see them at a later date. In the interim, the patient called me and came to our office as he was not seeming well, he is progressively worsening and becoming more short of breath. His appetite had gone down and he was here in the office with his son yesterday and after listening to him, he had a new complaint that not only was he having shortness of breath, he was catching his breath in between sentences. He is complaining of decreased appetite. He also was complaining of pleuritic chest pain on the left side, complaining of chills and generalized weakness. With these in mind, my concern was with the CAT scan finding of the left lower lobe infiltrate and a pleural effusion just a few days ago. I advised him to come in to the Emergency Room to make sure it was not progressing, another concern was given his history of malignancy, whether he was prone to another underlying situation such as evolving PE. The patient was advised admission and he has been admitted to telemetry and started on broad-spectrum antibiotics. In the ER after discussion with the ER physician in view of his elevated creatinine, which was much higher than usual, the patient was started on IV fluids and the patient had a V/Q scan in addition to the CAT scan of the chest to rule out the possibility of PE. CAT scan of the chest did show extensive infiltrate in the left lower lobe and possibly infiltrates and peripheral enhancement in the left upper lobe as well, which is of concern. The patient could have either atypical or untreated progressive community-acquired pneumonia and he has been started on broad-spectrum antibiotics. The patient also will be started on IV heparin until we get further delineation that was not a PE. 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 ALLERGIES: NO KNOWN ALLERGIES. MEDICATIONS: The patient's medication at home include hydralazine 100 mg twice a day, Micardis 80 mg daily, Cardura 8 mg twice a day, atorvastatin 20 mg daily, atenolol 50 mg daily and 25 at bedtime, he is on Aggrenox one tablet daily, and allopurinol 100 mg twice daily. SOCIAL HISTORY: The patient denies smoking or drinking. No history of substance abuse. 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 REVIEW OF SYSTEMS: A 12-system review of systems was done and all the review of systems are negative except for what is mentioned in the HPI. PHYSICAL EXAMINATION: GENERAL: The patient is mildly short of breath, catching his sentences in between breaths. The patient is complaining of pleuritic left-sided chest pain as well. VITAL SIGNS: Temperature max is 101.4, pulse is 73, respirations 18 and blood pressure 122/59. LUNGS: Reveals bilateral rhonchi with decreased breath sounds on the left side posteriorly. HEART: Reveals S1 and S2 to be normal. ABDOMEN: Soft, obese and nontender. Liver and spleen are nonpalpable. No rebound, rigidity, or guarding is noted. The patient is complaining of left subcostal pain, which could be referred pain from the pleura. EXTREMITIES: Reveals no cyanosis, clubbing, or edema. NEUROLOGIC: All functions are normal. No focal deficits are noted. GENITOURINARY AND RECTAL: Deferred. LYMPHATICS: There is no evidence of adenopathy in the neck, axilla, or groin. LABORATORY DATA: Lab data reveals a white count of 5.1, hemoglobin 11, hematocrit 34 and platelet count 221. INR of 1.06. VBG shows pH of 7.33, CO2 of 53, bicarbonate 27, FiO2 of 20%. Chemistry reveals sodium of 142, potassium of 4.7, chloride of 100, CO2 of 27, BUN of 72, creatinine 3.5, blood sugar of 133, and BNP of 466. ASSESSMENT: Stage IV chronic lymphocytic leukemia, stage IV small cell lymphocytic lymphoma. In this background, the patient now has new findings of left lower lobe infiltrate, left pleural effusion, left upper lobe infiltrates as well, acute and chronic kidney failure, history of hypertension, morbid obesity. PLAN: The patient has agreed with the treatment regimen prescribed by PMD at this point in time. ID is already on board. If the patient's condition does not improve, we may need to have a Pulmonology evaluation as well for possible bronchoscopy if needed. The patient has been empirically started on broad-spectrum antibiotics and cultures are still pending. The patient is on Maxipime and Zithromax at this time. Kidney functions will have to be monitored. Dr. Ernst, kidney specialist is also going to see the patient and get the clearance for him. We need to do a CT with contrast then at least the kidney people or the renal doctors would advice on the same. In the meantime we will just agreed with being conservative and continuing current treatment to see how the patient improves. The patient has been started on IV steroids as well. His left ventricular ejection fraction of the prior echocardiogram show ejection fraction of 65%. We will follow up the patient with you and make appropriate recommendations. Review of the office records does not show the patient to be hypogammaglobulinemic so that possible infection could be just community-acquired infection that was not completely treated. Thanking you for allowing me to participate in management of this patient. Blanka Garcia MD MTDOlena
[2017-06-28] MEDS: Aspirin-Dipyridamole 200-25 mg ER Cap PO SCH (10:25)
[2017-06-28] MEDS: Azithromycin 500MG/NS 250ml 500 MG/250 ML BAG IVPB SCH (10:26)
[2017-06-28] MEDS ORDERED: Oxycodone/Acetaminophen 5/325 mg Tab PO PRN (12:38)
--- NOTE | 2017-06-28 15:15 | CP.PCM.PN ---
Subjective - Date & Time of Evaluation Date of Evaluation: 06/28/17 Time of Evaluation: 15:12 - Subjective Subjective: Heme/Onc progress note for Dr. Garcia's service Patient seen and examined at bedside. No acute overnight events or new complaints reported. Denies chest pain, palpitations, SOB. Objective - Vital Signs/Intake and Output Vital Signs (last 24 hours): Temp Pulse Resp BP Pulse Ox 97.8 F 62 20 170/82 H 95 06/28/17 12:00 06/28/17 14:00 06/28/17 12:00 06/28/17 12:00 06/28/17 06:00 Intake and Output: 06/28/17 06/28/17 06:59 18:59 Intake Total 1688 Output Total 1200 1200 Balance 488 -1200 - Medications Medications: Current Medications Acetaminophen (Tylenol 325mg Tab) 650 mg PO Q6H PRN PRN Reason: Fever >100.4 F Albuterol/Ipratropium (Duoneb 3 Mg/0.5 Mg (3 Ml) Ud) 3 ml IH Q2H PRN PRN Reason: Shortness of Breath Albuterol/Ipratropium (Duoneb 3 Mg/0.5 Mg (3 Ml) Ud) 3 ml IH [id number] [facility] Last Admin: 06/28/17 13:05 Dose: 3 ml Amlodipine Besylate (Norvasc) 10 mg PO DAILY [facility] Last Admin: 06/28/17 10:26 Dose: 10 mg Apixaban (Eliquis) 2.5 mg PO BID [facility] PRN Reason: Protocol Last Admin: 06/28/17 12:52 Dose: 2.5 mg Atenolol (Tenormin) 25 mg PO HS [facility] Last Admin: 06/27/17 21:17 Dose: 25 mg Atenolol (Tenormin) 50 mg PO DAILY [facility] Last Admin: 06/28/17 10:26 Dose: 50 mg Atorvastatin Calcium (Lipitor) 20 mg PO HS [facility] Last Admin: 06/27/17 21:17 Dose: 20 mg Azithromycin (Zithromax) 500 mg PO DAILY [facility] PRN Reason: Protocol Stop: 07/06/17 10:01 Doxazosin Mesylate (Cardura) 8 mg PO BID [facility] Last Admin: 06/28/17 10:26 Dose: 8 mg Hydralazine HCl (Apresoline) 50 mg PO BID [facility] Last Admin: 06/28/17 10:26 Dose: 50 mg Cefepime HCl 0.5 gm/ Sodium (Chloride) 100 mls @ 100 mls/hr IVPB Q24H [facility] PRN Reason: Protocol Last Admin: 06/27/17 22:22 Dose: 100 mls/hr Methylprednisolone (Solu-Medrol) 40 mg IV Q8 [facility] Last Admin: 06/28/17 13:10 Dose: 40 mg Ondansetron HCl (Zofran Inj) 4 mg IVP Q6H PRN PRN Reason: Nausea/Vomiting Oxycodone/Acetaminophen (Percocet 5/325 Mg Tab) 1 tab PO Q6H PRN PRN Reason: Pain, severe (8-10) Stop: 07/01/17 12:39 Last Admin: 06/28/17 12:50 Dose: 1 tab Pantoprazole Sodium (Protonix Ec Tab) 40 mg PO 0600 [facility] Last Admin: 06/28/17 05:46 Dose: 40 mg - Labs Labs: 06/28/17 05:20 06/28/17 05:20 PT 11.4 Seconds (9.9-11.8) 06/26/17 19:25 INR 1.06 (0.93-1.08) 06/26/17 19:25 APTT 43.8 Seconds (23.7-30.8) H 06/28/17 13:00 - Constitutional Appears: No Acute Distress - Head Exam Head Exam: ATRAUMATIC, NORMAL INSPECTION, NORMOCEPHALIC - Eye Exam Eye Exam: EOMI, PERRL - ENT Exam ENT Exam: Mucous Membranes Moist - Respiratory Exam Respiratory Exam: Decreased Breath Sounds. absent: Rales, Rhonchi, Wheezes - Cardiovascular Exam Cardiovascular Exam: +S1, +S2. absent: Gallop, Rubs, Murmur - GI/Abdominal Exam GI & Abdominal Exam: Soft. 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 stage IV lymphocytic lymphoma 2. Left upper lobe atelectasis 3. Left lower lobe pneumonia 4. Acute on chronic renal failure 5. Hypertension 6. Obesity -CT Chest revealed BLAKE atelectasis, left pleural effusion with left lower lobe atelectasis -Continue with antibiotics as per ID recommendations - maxipime and zithromax -May require pulmonary evaluation should his lung infiltrate/symptoms not improve -Echocardiogram pending; LVEF 65% from most recent echocardiogram -Blood cultures negative thus far, urine culture negative -Continue current medical management as per primary team -Further recommendations as per Dr. Garcia Patient seen and case discussed with attending, Dr. Garcia
--- NOTE | 2017-06-28 19:18 | PN ---
DATE: SUBJECTIVE: The patient is a 71-year-old, seen and examined. He states he feels almost 50% better. He complained of pain in the right arm where he had IV infiltrated. No nausea or vomiting. No diarrhea. PHYSICAL EXAMINATION VITAL SIGNS: He is afebrile, pulse 65, respirations 20, blood pressure 149/71. HEART: S1 and S2 audible. LUNGS: Bilateral fair airflow, decreased at bases. Bilateral expiratory rhonchi. ABDOMEN: Soft, obese, nontender. No rebound, no guarding. NEUROLOGIC: The patient is awake and alert, communicative. LABORATORY DATA: WBC is 6.4, hemoglobin 10.2, hematocrit 31.8, platelet of 194. PTT is 43.8. Chemistry: Sodium 141, potassium 4.7, chloride 103, CO2 of 23, BUN 62, creatinine 2.2, blood sugar of 247. Blood culture and urine cultures are negative. ASSESSMENT: 1. Community-acquired pneumonia. 2. Exertional dyspnea. 3. Medium intermediate positive V/Q scan. 4. Acute on chronic renal failure. 5. Hypertension. 6. Questionable transient ischemic attack. 7. History of stage IV lymphocytic leukemia. PLAN: I will request for a pulmonary consult. We will continue him on nebulizer treatment. Discussed with Dr. Garcia. We will discontinue heparin, start him on Eliquis 2.5 mg b.i.d., modify dose because of his compromised kidney function. We will discontinue Aggrenox. Continue him on aspirin, continue him on Maxipime, analgesic as needed and also cut down his steroid from 40 mg q. 8 hours to q. 12 hours. Out of bed to chair, encourage physical therapy. We will reevaluate the patient in a.m. Ching Livingston MD
[2017-06-28] MEDS: Cefepime 0.5 GM in Sodium Chloride 0.9% 100 ML IVPB SCH (21:48)
[2017-06-28] MEDS ORDERED: MethylPREDNISolone 40 mg Vial IV SCH (22:00)
[2017-06-29] MEDS: Albuterol-Ipratrop 3 mg / 0.5 (3 ml) UD IH SCH ×4 (02:15→19:24)
--- NOTE | 2017-06-29 02:39 | CON ---
DATE: 06/28/2017 REASON FOR CONSULTATION: Acute kidney injury, superimposing chronic kidney disease stage III. HISTORY OF PRESENT ILLNESS: A 71-year-old male, previously unknown to me was sent to the emergency room on 06/[address] Garcia's office. He had been sick for the week prior to admission. He was complaining of cough and congestion. He was given Ceftin by PMD as an outpatient. He was not feeling better and so he was given another antibiotic. Subsequently, he was found confused and disoriented in his car, was taken to the [facility]. He was discharged from there with a diagnosis of TIA. Next day, he went to see Dr. Garcia. He was found to have cough, shortness of breath and wheezing. He was sent to the emergency room. In the emergency room, he was found to have pneumonia and pleuritic chest pain. He was found to be febrile. Temperature spiked to 101.4, blood pressure was 123/59, found to have elevated creatinine of 3.5, hence consultation was requested. His baseline creatinine is around 1.6. PAST MEDICAL AND SURGICAL HISTORY: CLL, chronic kidney disease stage III, obesity, hypertension, hyperlipidemia, and sleep apnea, on CPAP at home. FAMILY HISTORY: Noncontributory. SOCIAL HISTORY: No smoking, no alcohol use, no IV drug abuse. ALLERGIES: NO KNOWN DRUG ALLERGIES. MEDICATIONS AT HOME: Had been on hydralazine 100 mg twice a day, Micardis 80, Cardura 8, Lipitor 20, atenolol 50 and Aggrenox. REVIEW OF SYSTEMS: All systems are reviewed, pertinent positives as mentioned in the history of presenting illness, rest unremarkable. PHYSICAL EXAMINATION: GENERAL: Obese, elderly male lying in bed, in mild respiratory distress. VITAL SIGNS: Blood pressure 150/72, heart rate 67, respiratory rate 20 and temperature 98.4. HEENT: Normocephalic, atraumatic. NECK: Supple, no JVD. LUNGS: Bilateral equal air entry, bilateral rhonchi, no rales. CARDIAC: S1 and S2, regular rate and rhythm. No murmur, no rub. ABDOMEN: Obese, distended, soft, nontender, bowel sounds present. EXTREMITIES: No lower extremity edema. INTAKE AND OUTPUT: 1938/1200. LABORATORY DATA: WBC 6.4, hemoglobin 10.2, hematocrit 32, platelets 194. Sodium 141, potassium 4.7, chloride 103, CO2 of 23, BUN 62, creatinine 2.2, glucose 247, calcium 9.4, phosphorus 5.7, AST 83, ALT 112, BNP 1060, albumin 3.5. Urine culture, no growth. Blood culture, no growth. CURRENT MEDICATIONS: Apresoline 50 b.i.d., Cardura 8 b.i.d., cefepime 500 q.24., DuoNeb, Eliquis, Lipitor, amlodipine, Percocet, Protonix, Solu-Medrol, atenolol, Zofran and Zithromax. ASSESSMENT: 1. Acute kidney injury, superimposed on chronic kidney disease stage III, likely acute tubular necrosis in the setting of intercurrent illness, concomitant use of angiotensin receptor evette. 2. Pneumonia. 3. Hypertension. 4. Chronic lymphocytic leukemia. PLAN: 1. Continue to hold Micardis for the time being. 2. Continue antibiotic as per ID recommendations. 3. Continue respiratory treatments. 4. Avoid nephrotoxins. 5. Dose all antibiotics for creatinine clearance about 50 mL per minute. Chelo Ernst MD
[2017-06-29] MEDS: Pantoprazole 40 mg EC Tab PO SCH (05:52)
--- NOTE | 2017-06-29 08:39 | PN ---
DATE: 06/28/2017 SUBJECTIVE: The patient is seen early this morning in 266, bed 2. The patient is awake and alert. He states he slept poorly. PHYSICAL EXAMINATION: VITAL SIGNS: On exam his temperature is down to 97, T-max 48 hours ago was 101, his fever has responded, blood pressure is 170/80, and respiratory rate of 18. HEENT: Unremarkable. NECK: Supple. LUNGS: Decreased breath sounds. HEART: Exam normal S1 and S2. ABDOMEN: Examination is soft and nontender. LABORATORY DATA: Examination reveals a white count is 6.4, hemoglobin of 10, and platelets of 194. Chemistries reveals a BUN of 52 and creatinine of 2.2. LFTs are noted. Urinalysis is noted. Urine for Legionella antigen is negative. Blood cultures and urine cultures are negative. The patient's procalcitonin is 0.28. Dr. Garcia's consultation is reviewed. Dr. Livingston's progress note is reviewed from yesterday. The patient's EKG reveals a QTc of 434. Cultures are negative. ASSESSMENT AND PLAN: He is a 71-year-old male with obesity with body mass index of 31, hypertension, kidney disease, chronic lymphocytic leukemia, status post treatment 1 year ago, history of gout, now presenting with a fever of 101 and respiratory rate . 1. Severe sepsis with healthcare-associated pneumonia with acute kidney injury, which appears to be improving on top of chronic kidney injury, and on Maxipime and azithromycin. Negative cultures, negative procalcitonin, and negative Legionella antigen in this patient who meets criteria for metabolic syndrome with triglycerides of 151 and HDL is 22 with obesity, hypertension, and on hypertension treatment, and currently on cefepime day #3 and azithromycin. We will change his azithromycin to p.o. and may discontinue the cefepime in the next 24 to 48 hours and complete with p.o. Zithromax and followup the imaging to resolution. Should consider a Pulmonary evaluation if the imaging does not improve. Jorge Simmons MD
--- NOTE | 2017-06-29 08:48 | CON ---
DATE: 06/29/2017 PULMONARY CONSULTATION REASON FOR CONSULTATION: Pneumonia. REFERRING PHYSICIAN: Dr. Livingston. HISTORY OF PRESENT ILLNESS: The patient is a 71-year-old male, with past medical history significant for advanced, stage IV chronic lymphocytic leukemia, chronic kidney disease, obstructive sleep apnea, hypertension, who presented to [facility] with a 1-week history of worsening shortness of breath at rest, dyspnea on exertion, cough, and minimal sputum production. The patient also initially presented to the emergency room with an additional complaint of left-sided chest pain. The left-sided chest pain has now resolved. There is no history of hemoptysis. The patient did present with fevers to the emergency room. No history of chills or infectious exposure. No history of night sweats, weight loss or appetite change prior to the above events. No history of leg or calf pains. No history of syncope or diaphoresis. No history of recent travel or trauma. REVIEW OF SYSTEMS: No history of nausea, vomiting or diarrhea. No acute urinary symptoms. Rest of the review of systems is negative. ALLERGIES: NO KNOWN ALLERGIES. SOCIAL HISTORY: Negative for tobacco, negative for alcohol. FAMILY HISTORY: No inheritable diseases. HOME MEDICATIONS: Include hydralazine, Micardis, Cardura, Lipitor, Tenormin, Aggrenox, Zyloprim. PHYSICAL EXAMINATION GENERAL: The patient appears comfortable at rest. He is not short of breath. He is not using accessory muscles for breathing. VITAL SIGNS: Temperature is 97.4, pulse is 46, respirations 18, blood pressure 131/61. Oxygen saturation on BiPAP is 98%. HEENT: Normocephalic, atraumatic. NECK: No JVD. CARDIOVASCULAR: Positive S1 and S2. No S3 gallop. LUNGS: Minimal crackles at the left base. Minimal rhonchi. No wheezing. EXTREMITIES: No clubbing, cyanosis, or edema. Calves are nontender to palpation. GASTROINTESTINAL: Abdomen is soft, nontender, nondistended. Bowel sounds are positive. SKIN: No acute rash. NEUROLOGIC: Limited at the present time. PERTINENT LABORATORY DATA: CAT scan of the chest was done and reviewed. There is a minimal linear change noted at the left fissure. This could even be a chronic scar or linear atelectasis. At the left base, there is an infiltrate with air bronchograms consistent with pneumonia. There is also a small adjacent left pleural effusion. Ventilation-perfusion scan was also done. It was read as intermediate probability for pulmonary embolism. Extremity ultrasound was also done. There is no evidence for deep venous thrombosis in either of his legs. CBC: White count 6.4, hemoglobin 10.2, hematocrit 31.8, platelets of 194. Complete metabolic profile: BUN 62, creatinine 2.2, glucose 247, AST 83, ALT 112. Rest of the metabolic profile is within normal limits. IMPRESSION: 1. Left lower lobe pneumonia. 2. Small left pleural effusion. 3. Rule out pulmonary embolism. 4. Obstructive sleep apnea. 5. Advanced chronic lymphocytic leukemia. 6. Renal insufficiency. PLAN: I did discuss the case with the patient and nurse at length. I have also reviewed the chart at length. The patient presented to [facility] with a 1-week history of worsening pulmonary symptoms. He also presented to the emergency room with high fevers (101.4). The patient was thus admitted for additional evaluation. I did review the CAT scan of the chest. The CAT scan is consistent with a left lower lobe pneumonia and small parapneumonic effusion. I would continue with the antibiotic coverage as per Infectious Disease. Their input is noted. The temperatures have now completely resolved. The patient also had a ventilation-perfusion scan-- read as intermediate probability. The patient is currently on Eliquis. Unfortunately, a CAT scan angiogram could not be done due to his renal insufficiency. While I feel that pulmonary embolism is possible, it is probably less likely. Patients usually do not present with high fevers( associated with pulmonary embolism). In addition, the leg studies are negative. Echocardiogram has been ordered. Results are pending. On physical exam, there is very minimal bronchospasm noted. In addition, there is no significant alveolar-arterial gradient. I will continue with the current nebulizer treatments and decrease the intravenous steroids this morning. The patient does state to feeling significantly better-- compared to his initial hospital status. As above, his temperatures have resolved. His left-sided chest pain has also resolved. Additional pulmonary intervention will be based on the clinical status of the patient. I will discuss the above with the attending physician this morning. Thank you very much for this pulmonary consultation. Juan Francisco Aguirre MD [facility]TD[facility]
[2017-06-29] MEDS: Nitroglycerin 0.4 mg/hr Top Patch TD SCH (09:12)
[2017-06-29] MEDS: MethylPREDNISolone 40 mg Vial IVP SCH ×2 (09:14→21:59)
--- NOTE | 2017-06-29 12:08 | CP.PCM.PN ---
<Sudhakar Espinal - Last Filed: 06/29/17 21:11> Subjective - Date & Time of Evaluation Date of Evaluation: 06/29/17 Time of Evaluation: 12:05 - Subjective Subjective: Heme/Onc progress note for Dr. Garcia's service Patient seen and examined at bedside. No acute overnight events or new complaints. Denies cp, palpitations. SOB improving. Objective - Vital Signs/Intake and Output Vital Signs (last 24 hours): Temp Pulse Resp BP Pulse Ox 97.4 F L 71 19 131/61 98 06/29/17 06:00 06/29/17 09:32 06/29/17 08:10 06/29/17 09:15 06/29/17 06:00 Intake and Output: 06/29/17 06/29/17 06:59 18:59 Intake Total 460 Output Total 750 Balance -290 - Medications Medications: Current Medications Acetaminophen (Tylenol 325mg Tab) 650 mg PO Q6H PRN PRN Reason: Fever >100.4 F Albuterol/Ipratropium (Duoneb 3 Mg/0.5 Mg (3 Ml) Ud) 3 ml IH Q2H PRN PRN Reason: Shortness of Breath Albuterol/Ipratropium (Duoneb 3 Mg/0.5 Mg (3 Ml) Ud) 3 ml IH [id number] [facility] Last Admin: 06/29/17 08:10 Dose: 3 ml Amlodipine Besylate (Norvasc) 10 mg PO DAILY [facility] Last Admin: 06/29/17 09:15 Dose: 10 mg Apixaban (Eliquis) 2.5 mg PO BID [facility] PRN Reason: Protocol Last Admin: 06/29/17 09:14 Dose: 2.5 mg Atenolol (Tenormin) 25 mg PO HS [facility] Last Admin: 06/28/17 21:51 Dose: Not Given Atenolol (Tenormin) 50 mg PO DAILY [facility] Last Admin: 06/29/17 09:15 Dose: 50 mg Atorvastatin Calcium (Lipitor) 20 mg PO HS [facility] Last Admin: 06/28/17 21:45 Dose: 20 mg Azithromycin (Zithromax) 500 mg PO DAILY [facility] PRN Reason: Protocol Stop: 07/06/17 10:01 Last Admin: 06/29/17 09:14 Dose: 500 mg Doxazosin Mesylate (Cardura) 8 mg PO BID [facility] Last Admin: 06/29/17 09:14 Dose: 8 mg Hydralazine HCl (Apresoline) 50 mg PO BID [facility] Last Admin: 06/29/17 09:13 Dose: 50 mg Cefepime HCl 0.5 gm/ Sodium (Chloride) 100 mls @ 100 mls/hr IVPB Q24H [facility] PRN Reason: Protocol Last Admin: 06/28/17 21:48 Dose: 100 mls/hr Methylprednisolone (Solu-Medrol) 30 mg IVP Q12 [facility] Last Admin: 06/29/17 09:14 Dose: 30 mg Nitroglycerin (Nitro-Dur 0.4 Mg/Hr Patch) 1 patch TD DAILY [facility] Last Admin: 06/29/17 09:12 Dose: 1 patch Ondansetron HCl (Zofran Inj) 4 mg IVP Q6H PRN PRN Reason: Nausea/Vomiting Oxycodone/Acetaminophen (Percocet 5/325 Mg Tab) 1 tab PO Q6H PRN PRN Reason: Pain, severe (8-10) Stop: 07/01/17 12:39 Last Admin: 06/28/17 12:50 Dose: 1 tab Pantoprazole Sodium (Protonix Ec Tab) 40 mg PO 0600 [facility] Last Admin: 06/29/17 05:52 Dose: 40 mg - Labs Labs: 06/28/17 05:20 06/28/17 05:20 PT 11.4 Seconds (9.9-11.8) 06/26/17 19:25 INR 1.06 (0.93-1.08) 06/26/17 19:25 APTT 43.8 Seconds (23.7-30.8) H 06/28/17 13:00 - Constitutional Appears: No Acute Distress - Head Exam Head Exam: ATRAUMATIC, NORMAL INSPECTION, NORMOCEPHALIC - Eye Exam Eye Exam: EOMI, PERRL - ENT Exam ENT Exam: Mucous Membranes Moist - Respiratory Exam Respiratory Exam: Decreased Breath Sounds. absent: Rales, Rhonchi, Wheezes - Cardiovascular Exam Cardiovascular Exam: +S1, +S2. absent: Gallop, Rubs, Murmur - GI/Abdominal Exam GI & Abdominal Exam: Soft. 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 stage IV lymphocytic lymphoma 2. Left lower lobe pneumonia 3. Acute on chronic renal failure 4. Hypertension 5. Obesity -Flow cytometry of peripheral blood requested; per Dr. Garcia, patient's lymphoma has been in remission -Continue with renally-dosed eliquis; VQ scan reviewed; intermediate probability of PE -CT Chest revealed BLAKE atelectasis, left pleural effusion with left lower lobe atelectasis -Continue with antibiotics as per ID recommendations - maxipime and zithromax -Pulm consulted (Dr. Aguirre) continue current medical management; may consider bronchoscopy should patient show lack of improvement -Echocardiogram pending; LVEF 65% from most recent echocardiogram -Blood cultures negative thus far, urine culture negative -Continue current medical management as per primary team -Further recommendations as per Dr. Garcia Patient seen and case discussed with attending, Dr. Garcia <Blanka Garcia - Last Filed: 07/01/17 10:38> Objective - Vital Signs/Intake and Output Vital Signs (last 24 hours): Temp Pulse Resp BP Pulse Ox 97.8 F 84 20 146/81 96 07/01/17 07:30 07/01/17 07:30 07/01/17 07:30 07/01/17 09:05 07/01/17 07:30 Intake and Output: 07/01/17 07/01/17 06:59 18:59 Intake Total 240 Output Total 200 Balance 40 - Medications Medications: Current Medications Acetaminophen (Tylenol 325mg Tab) 650 mg PO Q6H PRN PRN Reason: Fever >100.4 F Albuterol/Ipratropium (Duoneb 3 Mg/0.5 Mg (3 Ml) Ud) 3 ml IH Q2H PRN PRN Reason: Shortness of Breath Albuterol/Ipratropium (Duoneb 3 Mg/0.5 Mg (3 Ml) Ud) 3 ml IH [id number] [facility] Last Admin: 07/01/17 07:27 Dose: 3 ml Amlodipine Besylate (Norvasc) 10 mg PO DAILY [facility] Last Admin: 07/01/17 09:05 Dose: 10 mg Apixaban (Eliquis) 2.5 mg PO BID [facility] PRN Reason: Protocol Last Admin: 07/01/17 09:08 Dose: 2.5 mg Atenolol (Tenormin) 25 mg PO HS [facility] Last Admin: 06/30/17 22:43 Dose: 25 mg Atenolol (Tenormin) 50 mg PO DAILY [facility] Last Admin: 07/01/17 09:08 Dose: 50 mg Atorvastatin Calcium (Lipitor) 20 mg PO HS [facility] Last Admin: 06/30/17 22:43 Dose: 20 mg Azithromycin (Zithromax) 500 mg PO DAILY [facility] PRN Reason: Protocol Stop: 07/06/17 10:01 Last Admin: 07/01/17 09:04 Dose: 500 mg Doxazosin Mesylate (Cardura) 8 mg PO BID [facility] Last Admin: 07/01/17 09:04 Dose: 8 mg Hydralazine HCl (Apresoline) 50 mg PO BID [facility] Last Admin: 07/01/17 09:04 Dose: 50 mg Cefepime HCl 0.5 gm/ Sodium (Chloride) 100 mls @ 100 mls/hr IVPB Q24H [facility] PRN Reason: Protocol Last Admin: 06/30/17 22:39 Dose: 100 mls/hr Losartan Potassium (Cozaar) 50 mg PO DAILY [facility] Last Admin: 07/01/17 09:05 Dose: 50 mg Nitroglycerin (Nitro-Dur 0.4 Mg/Hr Patch) 1 patch TD DAILY [facility] Last Admin: 06/30/17 10:57 Dose: 1 patch Ondansetron HCl (Zofran Inj) 4 mg IVP Q6H PRN PRN Reason: Nausea/Vomiting Oxycodone/Acetaminophen (Percocet 5/325 Mg Tab) 1 tab PO Q6H PRN PRN Reason: Pain, severe (8-10) Stop: 07/01/17 12:39 Last Admin: 06/28/17 12:50 Dose: 1 tab Pantoprazole Sodium (Protonix Ec Tab) 40 mg PO 0600 [facility] Last Admin: 07/01/17 05:36 Dose: 40 mg Polyethylene Glycol (Miralax) 17 gm PO DAILY [facility] Last Admin: 07/01/17 09:14 Dose: Not Given Prednisone (Prednisone Tab) 40 mg PO DAILY [facility] Last Admin: 07/01/17 09:05 Dose: 40 mg - Labs Labs: 06/30/17 05:40 06/30/17 10:41 PT 11.4 Seconds (9.9-11.8) 06/26/17 19:25 INR 1.06 (0.93-1.08) 06/26/17 19:25 APTT 43.8 Seconds (23.7-30.8) H 06/28/17 13:00 Attending/Attestation - Attestation I have personally seen and examined this patient.: Yes I have fully participated in the care of the patient.: Yes I have reviewed all pertinent clinical information, including history, physical exam and plan: Yes
[2017-06-29 14:15] LABS: BODY FLUID TYPE PLEURAL
[2017-06-29 14:31] LABS: BF GROSS APPEARANCE TURBID (CLEAR); BODY FLUID TOTAL COUNT 100 (0-0)
--- NOTE | 2017-06-29 15:10 | PN ---
DATE: SUBJECTIVE: The patient is a 71-year-old male who is seen and examined. He states he feels lot better. No nausea, vomiting, or diarrhea. His shortness of breath has improved significantly. PHYSICAL EXAMINATION VITAL SIGNS: He is afebrile, pulse is 71, respirations are 19, and blood pressure is 131/61. LUNGS: Bilateral occasional expiratory rhonchi. Decreased breath sounds at bases. HEART: S1 and S2 audible. ABDOMEN: Soft and nontender, obese. No hepatosplenomegaly. NEUROLOGICAL: The patient is awake and alert, communicative. LABORATORY DATA: There is no new labs available today. ASSESSMENT: 1. Left lower lobe pneumonia. 2. Pleural effusion. 3. History of sleep apnea. 4. Chronic lymphocytic leukemia. 5. Acute on chronic renal insufficiency. 6. Left lower lobe atelectasis with superimposed pneumonia. 7. Left upper lobe atelectasis. PLAN: Discussed with Dr. Sha Dickey. He is planned to have a thoracentesis for That loculated effusion. We will follow up echocardiogram. Continue on Zithromax and Maxipime. We will continue him on IV steroids. Requested for TCU evaluation. We will reevaluate this patient. Follow up CBC and CMP in the a.m. Ching Livingston MD
--- NOTE | 2017-06-29 17:15 | CT ---
PROCEDURE: CT guided left thoracentesis HISTORY: Left lower lobe pneumonia. Loculated left pleural effusion. Evaluate for empyema. PHYSICIAN(S): Sha Dickey MD. TECHNIQUE: The relative risks and indications of the procedure were explained to the patient and consent obtained. The patient was placed ight decubitus position on the CT scanner and preliminary images through the lung bases obtained. There is a somewhat loculated 7 x 10 cm pleural fluid collection at the left base posteriorly. Is contiguous with the patient's left lower lobe airspace disease. The site was prepped and draped usual sterile fashion. Percent xylocaine was used to anesthetize the skin and soft tissues. A 7 Japanese thoracentesis catheter was trocar into the collection, and 30 cc of straw-colored fluid aspirated. The appropriate labs were sent. The patient tolerated the procedure well. IMPRESSION: 1. CT-guided left thoracentesis as described above.
--- NOTE | 2017-06-29 19:23 | PN ---
DATE: 06/29/2017 SUBJECTIVE: The patient is seen lying in bed. He is awake, he is alert. He is in moderate respiratory distress. He is complaining of cough. He denies any chest tightness. He denies any palpitations. PHYSICAL EXAMINATION: GENERAL: An obese elderly male lying in bed. VITAL SIGNS: Blood pressure 131/61, heart rate 71, respiratory rate 18 to 20, temperature 98. HEENT: Normocephalic, atraumatic. NECK: Supple, no JVD. LUNGS: Bilateral equal air entry, bilateral rhonchi, crackles left side, equal expansion. CARDIAC: S1, S2, regular rate and rhythm, no murmur, no rub. ABDOMEN: Obese, distended, soft, nontender, bowel sounds present. EXTREMITIES: Trace lower extremity edema. INTAKE AND OUTPUT: 460/1950. LABORATORY DATA: No new labs today. CURRENT MEDICATIONS: Apresoline 50 b.i.d., Cardura 8 mg b.i.d., cefepime 500 daily, Eliquis, Zofran, Zithromax. ASSESSMENT: 1. Resolving acute kidney injury. 2. Pneumonia. 3. Respiratory failure. 4. Chronic lymphocytic leukemia. 5. Chronic kidney disease stage 3. 6. Hypertension. PLAN: 1. Check daily labs. 2. Continue antibiotics. 3. Agree with discontinuation of IV fluids. 4. Avoid nephrotoxins. Chelo Ernst MD
[2017-06-29] MEDS: Cefepime 0.5 GM in Sodium Chloride 0.9% 100 ML IVPB SCH (22:00)
[2017-06-30] MEDS: Albuterol-Ipratrop 3 mg / 0.5 (3 ml) UD IH SCH ×4 (01:26→19:36)
[2017-06-30] MEDS: Pantoprazole 40 mg EC Tab PO SCH (05:40)
[2017-06-30 05:57] LABS: GRAN # 5.3 (1.4-6.5); GRAN % 85.1 % (50.0-68.0); HEMATOCRIT 30.9 % (42.0-52.0); LYMPH # 0.5 (1.2-3.4); LYMPH % 7.7 % (22.0-35.0); MEAN CORPUSCULAR HEMOGLOBIN 29.5 pg (25.0-35.0); MEAN PLATELET VOLUME 10.1 fl (7.0-11.0); MONO # 0.5 (0.1-0.6); MONO % 7.2 % (1.0-6.0); RED CELL DISTRIBUTION WIDTH 13.6 % (11.5-14.5); WHITE BLOOD COUNT 6.2 10^3/ul (4.5-11.0)
[2017-06-30 06:14] LABS: ALB/GLOB RATIO 1.2 (1.1-1.8); BILIRUBIN,TOTAL 0.3 mg/dL (0.2-1.3); CALCIUM 8.9 mg/dL (8.4-10.5); TOTAL PROTEIN 6.1 g/dL (5.8-8.3)
[2017-06-30 06:41] LABS: POTASSIUM 5.6 mmol/L (3.6-5.0)
--- NOTE | 2017-06-30 07:47 | PN ---
SUBJECTIVE: The patient appears very comfortable at rest. He is not short of breath. PHYSICAL EXAMINATION: Vital Signs: Temperature is 98.3, pulse 75, respirations 18-20, blood pressure 167/67. Oxygen saturation on room air is 97%. HEENT: Normocephalic, atraumatic. NECK: No JVD. CARDIOVASCULAR: Positive S1, S2. No S3 gallop. LUNGS: Minimal crackles at the left base. Very minimal/less rhonchi. No wheezing. EXTREMITIES: No clubbing, cyanosis or edema. Calves are nontender to palpation. GASTROINTESTINAL: Abdomen is soft, nontender and nondistended. Bowel sounds are positive. SKIN: No acute rash. NEUROLOGIC: Limited at the present time. IMPRESSION: 1. Left lower lobe pneumonia. 2. Small left pleural effusion, status post thoracentesis. 3. Rule out pulmonary embolism. 4. Obstructive sleep apnea. 5. Advanced chronic lymphocytic leukemia. 6. Renal insufficiency. PLAN: The patient appears very comfortable this morning. He is not short of breath at rest. He also ambulated around the halls yesterday without any significant problems. He states he is feeling much, much better overall. On physical exam, his bronchospasm continues to resolve. In addition, the oxygen saturation on room air is now 97%. I will continue the current nebulizer treatments and change to oral steroids this morning. I would continue with the antibiotic coverage as per Infectious Disease. I did have a long talk with Dr. Simmons yesterday. The patient's temperatures have now fully resolved. Getting a definitive study (to rule in or rule out pulmonary embolism) has been problematic, secondary to the patient's renal insufficiency. The patient remains on Eliquis. Inputs by Renal and Oncology are noted. Clinical status of the patient is significantly improved overall. He is advised to be out of bed as much as possible. I will discuss the above with Dr. Livingston this morning. Juan Francisco Aguirre MD [facility]
[2017-06-30] MEDS ORDERED: Sod Polystyrene Sulf 15 gm/60 ml Susp PO ONE (08:32)
--- NOTE | 2017-06-30 08:39 | PN ---
DATE: 06/29/2017 SUBJECTIVE: The patient is in bed in no acute distress, nontoxic. He wants to get discharge. He is doing well. His fevers have improved. PHYSICAL EXAMINATION VITAL SIGNS: Temperature is 97, blood pressure is 130/60, respiratory rate of 18, heart rate of 71. HEENT: Unremarkable. NECK: Supple. LUNGS: Have decreased breath sounds. HEART: Normal S1, S2. ABDOMEN: Soft and nontender. LABORATORY EXAMINATION: Reveals a white count is 6.4, hemoglobin of 10, platelets of 194. Coagulation is noted. BUN of 62, creatinine of 2.2. BMP is 1060. Serology is negative. Microbiology reveals the patient's blood cultures are negative. Urine cultures are negative and Dr. De La Fuente note is reviewed. ASSESSMENT AND PLAN: This is a 71-year-old male seen earlier this morning in room #266, bed #2. He is ambulating with obesity with BMI of 31, hypertension, kidney disease, chronic lymphocytic leukemia who was treated year ago, history of gout, presenting with a fever and severe sepsis, healthcare-associated pneumonia, acute kidney injury appears to be improving on top of a chronic kidney injury on Maxipime and azithromycin. Negative cultures. Negative Procalcitonin. Negative urine Legionella antigen. He does meets criteria for metabolic syndrome. If these pulled with his cardiac risk factors rate of 7.5%, patient did have a cardiac evaluation in the past and cardiac cath and the patient had currently on day #4 of cefepime and Zithromax, may switch to cefepime to p.o. Vantin 100 mg p.o. b.i.d. with the p.o Zithromax to complete antibiotic therapy. The patient's wants to be discharged home. Case discussed with Dr. Aguirre, who feels the patient has a significant pneumonia and infiltrate findings. We will discontinue the cefepime upon discharge to p.o. Vantin. We will check on the echo, currently on p.o. Zithromax and IV cefepime adjusted for renal insufficiency, negative cultures and negative procalcitonin, even . Jorge Simmons MD [facility] # [id number]
[2017-06-30] MEDS: Nitroglycerin 0.4 mg/hr Top Patch TD SCH (10:57)
[2017-06-30] MEDS: POLYETHYLENE GLYCOL 3350 17 GM/Dose PACKET PO SCH (10:57)
--- NOTE | 2017-06-30 14:47 | PN ---
DATE: 06/30/2017 SUBJECTIVE: The patient was seen early this morning in room 266, bed 2. No fevers and no chills. He is doing much better. PHYSICAL EXAMINATION: VITAL SIGNS: Temperature is 98, blood pressure is 160/70, and respiratory rate of 18. HEENT: Examination is unremarkable. NECK: Supple. LUNGS: Decreased breath sounds. HEART: Exam normal S1 and S2. ABDOMEN: Examination is soft and nontender. LABORATORY EXAMINATION: Reveals a white count of 6.2 and coagulation is noted and chemistries reveals a BUN of 46, creatinine is 1.6, and random glucose is 321. The patient's procalcitonin is 0.28. Urinalysis is noted. The patient had pleural fluid evaluation, which revealed a pH of 7.0 and a white count of 3100, 100% cell count, 99% of polys, and proteinase 3 is undetectable, myeloperoxidase antibody is undetectable. HIV is nonreactive. Urine for Legionella antigen is negative. Unable to find an LDH on the pleural fluid or protein on the pleural fluid and the pleural fluid cultures are pending. Urine culture and blood cultures are negative. Dr. Aguirre's progress note from today is reviewed. The patient had a CAT scan of the chest yesterday by Dr. Sha Dickey with a chest tube insertion and thoracentesis. CAT scan guided left paracentesis was done, somewhat of a loculated 7 x 10 cm fluid collection at the left base. Review of orders reveals the patient to be on cefepime and Zithromax. Echo results are pending. ASSESSMENT AND PLAN: A 71-year-old male with obesity with body mass index of 31; hypertension; kidney disease; chronic lymphocytic leukemia, has had a chemotherapy 1 year ago; history of gout; now presenting with severe sepsis with left-sided healthcare-associated pneumonia with acute kidney injury on top of chronic kidney injury, on Maxipime and Zithromax, status post thoracentesis. We will check on the pleural fluid cultures. Although the patient's procalcitonin is normal, we are treating as a bacterial healthcare-associated possible Gram-positive cocci, possible Gram-negative gayathri; today is day #5 of antibiotics. The patient is also on prednisone. We will follow with you. Case discussed with Dr. Aguirre. Jorge Simmons MD
--- NOTE | 2017-06-30 17:28 | CP.PCM.PN ---
<Sudhakar Espinal - Last Filed: 06/30/17 17:25> Subjective - Date & Time of Evaluation Date of Evaluation: 06/30/17 Time of Evaluation: 08:00 - Subjective Subjective: Heme/Onc progress note for Dr. Garcia's service Patient seen and examined at bedside. No acute overnight events. Pt for thoracentesis. Pending fluid results. Denies cp, palpitations, abdominal pain, nausea, vomiting. Objective - Vital Signs/Intake and Output Vital Signs (last 24 hours): Temp Pulse Resp BP Pulse Ox 98.6 F 83 19 167/68 H 97 06/30/17 12:00 06/30/17 14:00 06/30/17 12:00 06/30/17 12:00 06/30/17 06:00 Intake and Output: 06/30/17 06/30/17 06:59 18:59 Intake Total 100 240 Output Total 500 Balance 100 -260 - Medications Medications: Current Medications Acetaminophen (Tylenol 325mg Tab) 650 mg PO Q6H PRN PRN Reason: Fever >100.4 F Albuterol/Ipratropium (Duoneb 3 Mg/0.5 Mg (3 Ml) Ud) 3 ml IH Q2H PRN PRN Reason: Shortness of Breath Albuterol/Ipratropium (Duoneb 3 Mg/0.5 Mg (3 Ml) Ud) 3 ml IH [id number] [facility] Last Admin: 06/30/17 13:22 Dose: 3 ml Amlodipine Besylate (Norvasc) 10 mg PO DAILY [facility] Last Admin: 06/30/17 10:55 Dose: 10 mg Apixaban (Eliquis) 2.5 mg PO BID [facility] PRN Reason: Protocol Last Admin: 06/30/17 10:55 Dose: 2.5 mg Atenolol (Tenormin) 25 mg PO HS [facility] Last Admin: 06/29/17 23:46 Dose: Not Given Atenolol (Tenormin) 50 mg PO DAILY [facility] Last Admin: 06/30/17 10:57 Dose: 50 mg Atorvastatin Calcium (Lipitor) 20 mg PO HS [facility] Last Admin: 06/29/17 22:00 Dose: 20 mg Azithromycin (Zithromax) 500 mg PO DAILY [facility] PRN Reason: Protocol Stop: 07/06/17 10:01 Last Admin: 06/30/17 10:54 Dose: 500 mg Doxazosin Mesylate (Cardura) 8 mg PO BID [facility] Last Admin: 06/30/17 10:55 Dose: 8 mg Hydralazine HCl (Apresoline) 50 mg PO BID [facility] Last Admin: 06/30/17 10:55 Dose: 50 mg Cefepime HCl 0.5 gm/ Sodium (Chloride) 100 mls @ 100 mls/hr IVPB Q24H [facility] PRN Reason: Protocol Last Admin: 06/29/17 22:00 Dose: 100 mls/hr Losartan Potassium (Cozaar) 50 mg PO DAILY [facility] Nitroglycerin (Nitro-Dur 0.4 Mg/Hr Patch) 1 patch TD DAILY [facility] Last Admin: 06/30/17 10:57 Dose: 1 patch Ondansetron HCl (Zofran Inj) 4 mg IVP Q6H PRN PRN Reason: Nausea/Vomiting Oxycodone/Acetaminophen (Percocet 5/325 Mg Tab) 1 tab PO Q6H PRN PRN Reason: Pain, severe (8-10) Stop: 07/01/17 12:39 Last Admin: 06/28/17 12:50 Dose: 1 tab Pantoprazole Sodium (Protonix Ec Tab) 40 mg PO 0600 [facility] Last Admin: 06/30/17 05:40 Dose: 40 mg Polyethylene Glycol (Miralax) 17 gm PO DAILY [facility] Last Admin: 06/30/17 10:57 Dose: 17 gm Prednisone (Prednisone Tab) 40 mg PO DAILY [facility] Last Admin: 06/30/17 10:55 Dose: 40 mg - Labs Labs: 06/30/17 05:40 06/30/17 10:41 PT 11.4 Seconds (9.9-11.8) 06/26/17 19:25 INR 1.06 (0.93-1.08) 06/26/17 19:25 APTT 43.8 Seconds (23.7-30.8) H 06/28/17 13:00 - Constitutional Appears: No Acute Distress - Head Exam Head Exam: ATRAUMATIC, NORMAL INSPECTION, NORMOCEPHALIC - Eye Exam Eye Exam: EOMI Pupil Exam: PERRL - Respiratory Exam Respiratory Exam: Decreased Breath Sounds. absent: Rales, Rhonchi, Wheezes - Cardiovascular Exam Cardiovascular Exam: +S1, +S2. absent: Gallop, Rubs, Murmur - GI/Abdominal Exam GI & Abdominal Exam: Soft. 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 stage IV lymphocytic lymphoma 2. Left lower lobe pneumonia 3. Acute on chronic renal failure 4. Hypertension 5. Obesity -Flow cytometry of peripheral blood requested; per Dr. Garcia, patient's lymphoma has been in remission -Continue with renally-dosed eliquis; VQ scan reviewed; intermediate probability of PE -CT Chest revealed BLAKE atelectasis, left pleural effusion with left lower lobe atelectasis -Scheduled for thoracentesis; pending fluid analysis -Continue with antibiotics as per ID recommendations - maxipime and zithromax -Pulm consulted (Dr. Aguirre) continue current medical management; may consider bronchoscopy should patient show lack of improvement -Echocardiogram pending; LVEF 65% from most recent echocardiogram -Blood cultures negative thus far, urine culture negative -Continue current medical management as per primary team -Further recommendations as per Dr. Garcia Patient seen and case discussed with attending, Dr. Garcia <Blanka Garcia P - Last Filed: 07/01/17 10:40> Objective - Vital Signs/Intake and Output Vital Signs (last 24 hours): Temp Pulse Resp BP Pulse Ox 97.8 F 84 20 146/81 96 07/01/17 07:30 07/01/17 07:30 07/01/17 07:30 07/01/17 09:05 07/01/17 07:30 Intake and Output: 07/01/17 07/01/17 06:59 18:59 Intake Total 240 Output Total 200 Balance 40 - Medications Medications: Current Medications Acetaminophen (Tylenol 325mg Tab) 650 mg PO Q6H PRN PRN Reason: Fever >100.4 F Albuterol/Ipratropium (Duoneb 3 Mg/0.5 Mg (3 Ml) Ud) 3 ml IH Q2H PRN PRN Reason: Shortness of Breath Albuterol/Ipratropium (Duoneb 3 Mg/0.5 Mg (3 Ml) Ud) 3 ml IH [id number] [facility] Last Admin: 07/01/17 07:27 Dose: 3 ml Amlodipine Besylate (Norvasc) 10 mg PO DAILY [facility] Last Admin: 07/01/17 09:05 Dose: 10 mg Apixaban (Eliquis) 2.5 mg PO BID [facility] PRN Reason: Protocol Last Admin: 07/01/17 09:08 Dose: 2.5 mg Atenolol (Tenormin) 25 mg PO HS [facility] Last Admin: 06/30/17 22:43 Dose: 25 mg Atenolol (Tenormin) 50 mg PO DAILY [facility] Last Admin: 07/01/17 09:08 Dose: 50 mg Atorvastatin Calcium (Lipitor) 20 mg PO HS [facility] Last Admin: 06/30/17 22:43 Dose: 20 mg Azithromycin (Zithromax) 500 mg PO DAILY [facility] PRN Reason: Protocol Stop: 07/06/17 10:01 Last Admin: 07/01/17 09:04 Dose: 500 mg Doxazosin Mesylate (Cardura) 8 mg PO BID [facility] Last Admin: 07/01/17 09:04 Dose: 8 mg Hydralazine HCl (Apresoline) 50 mg PO BID [facility] Last Admin: 07/01/17 09:04 Dose: 50 mg Cefepime HCl 0.5 gm/ Sodium (Chloride) 100 mls @ 100 mls/hr IVPB Q24H [facility] PRN Reason: Protocol Last Admin: 06/30/17 22:39 Dose: 100 mls/hr Losartan Potassium (Cozaar) 50 mg PO DAILY [facility] Last Admin: 07/01/17 09:05 Dose: 50 mg Nitroglycerin (Nitro-Dur 0.4 Mg/Hr Patch) 1 patch TD DAILY [facility] Last Admin: 06/30/17 10:57 Dose: 1 patch Ondansetron HCl (Zofran Inj) 4 mg IVP Q6H PRN PRN Reason: Nausea/Vomiting Oxycodone/Acetaminophen (Percocet 5/325 Mg Tab) 1 tab PO Q6H PRN PRN Reason: Pain, severe (8-10) Stop: 07/01/17 12:39 Last Admin: 06/28/17 12:50 Dose: 1 tab Pantoprazole Sodium (Protonix Ec Tab) 40 mg PO 0600 [facility] Last Admin: 07/01/17 05:36 Dose: 40 mg Polyethylene Glycol (Miralax) 17 gm PO DAILY [facility] Last Admin: 07/01/17 09:14 Dose: Not Given Prednisone (Prednisone Tab) 40 mg PO DAILY [facility] Last Admin: 07/01/17 09:05 Dose: 40 mg - Labs Labs: 06/30/17 05:40 06/30/17 10:41 PT 11.4 Seconds (9.9-11.8) 06/26/17 19:25 INR 1.06 (0.93-1.08) 06/26/17 19:25 APTT 43.8 Seconds (23.7-30.8) H 06/28/17 13:00 Attending/Attestation - Attestation I have personally seen and examined this patient.: Yes I have fully participated in the care of the patient.: Yes I have reviewed all pertinent clinical information, including history, physical exam and plan: Yes
--- NOTE | 2017-06-30 18:07 | PN ---
DATE: SUBJECTIVE: The patient is 71 years old, seen and examined, doing well. He is walking around with minimal shortness of breath. No fever or chills. Eating and tolerating. PHYSICAL EXAMINATION: VITAL SIGNS: He is afebrile, pulse 110, respiration 19, blood pressure 167/58. LUNGS: Bilateral fair airflow, few expiratory rhonchi in bilateral bases. Decreased airflow, but improved than before. HEAD AND NECK: Nonicteric sclerae. [place] conjunctivae. HEART: S1 and S2, audible. ABDOMEN: Soft, obese, nontender. No rebound. No guarding. NEUROLOGIC: The patient is awake and alert, ambulate to communicate, ambulatory, bilateral leg no edema. LABORATORY DATA: WBC 6.2, hemoglobin 9.9, hematocrit 30.9, platelet 168. Chemistry: Sodium 140, potassium 4.9, chloride 102, CO2 28, BUN 46, creatinine 1.6, blood sugar of 321. Blood culture and urine cultures are negative. His repeat CT scan that was done yesterday shows 30 mL of the straw colored fluid drained after CT-guided thoracentesis. ASSESSMENT: 1. Community-acquired pneumonia. 2. Parapneumonic effusion. 3. Obstructive sleep apnea. 4. Morbid obesity. 5. Chronic lymphocytic leukemia. 6. Hypertension. 7. Renal insufficiency, improving. PLAN: The patient is clinically stable. We will discontinue his telemetry. Encouraged him for ambulation. Continue him on Eliquis. Discussed with other professional housing consultant if the patient remains stable, discharge plan in a.m. after we switch him to p.o. antibiotic. Ching Livingston MD
--- NOTE | 2017-06-30 18:53 | PN ---
DATE: 06/30/2017 SUBJECTIVE: The patient is seen sitting in bed. He is awake, he is alert, is comfortable. He denies any chest pain. He denies any palpitations. He denies any cough, shortness of breath at present. PHYSICAL EXAMINATION: GENERAL: Obese elderly male sitting in bed. VITAL SIGNS: Blood pressure 161/89, heart rate 62, respiratory rate 18 to 20, temperature 98.6. HEENT: Normocephalic, atraumatic. NECK: Supple, no JVD. LUNGS: Bilateral equal air entry, bilateral rhonchi, crackles at left base. CARDIAC: S1 and S2, regular rate and rhythm, no murmur, no rub. ABDOMEN: Obese, distended, soft, nontender, bowel sounds present. EXTREMITIES: No lower extremity edema. INTAKE AND OUTPUT: 240/500. LABORATORY DATA: WBC 6.2, hemoglobin 9.9, hematocrit 30.9, platelets 186. Sodium 140, potassium 5.6, chloride 102, CO2 of 28, BUN 46, creatinine 1.6, glucose 321, calcium 8.9, AST 30, ALT 77, albumin 3.4. Pleural fluid; wbc's 3100, rbc's 673, cell count 100, 99% neutrophils, ANCA negative. CURRENT MEDICATION: Apresoline, Cardura, cefepime, DuoNeb, Eliquis, Lipitor, MiraLax, amlodipine, prednisone, Protonix, Tenormin, Zithromax, Zofran. ASSESSMENT: 1. Acute kidney injury superimposed on chronic kidney disease stage III, resolving acute kidney injury. 2. Pneumonia. 3. Parapneumonic effusion. 4. Hypertension. 5. Chronic lymphocytic leukemia. PLAN: 1. Continue antibiotics as per ID recommendations. 2. Avoid nephrotoxins. 3. Follow up pleural fluid cytology and cultures. 4. Repeat potassium is 4.9. 5. Monitor fingersticks. 6. Check hemoglobin A1c. 7. Okay to restart ARB, losartan 50 mg daily tomorrow. Chelo Ernst MD
[2017-06-30] MEDS: Cefepime 0.5 GM in Sodium Chloride 0.9% 100 ML IVPB SCH (22:39)
[2017-07-01] MEDS: Albuterol-Ipratrop 3 mg / 0.5 (3 ml) UD IH SCH ×3 (01:18→13:31)
[2017-07-01] MEDS: Pantoprazole 40 mg EC Tab PO SCH (05:36)
[2017-07-01 07:45] VITALS: PULSE 84; RESP 20; TEMP 97.8; O2SAT 96
[2017-07-01] MEDS: POLYETHYLENE GLYCOL 3350 17 GM/Dose PACKET PO SCH ×2 (09:08→09:14)
[2017-07-01 09:13] VITALS: BP 146/81
[2017-07-01] MEDS: Nitroglycerin 0.4 mg/hr Top Patch TD SCH (11:09)
--- NOTE | 2017-07-01 12:19 | PN ---
DATE: 07/01/2017 PULMONARY PROGRESS NOTE SUBJECTIVE: The patient states that he is feeling better and is ready to go home. Various points of his hospitalization which include left lower lobe pneumonia, left pleural effusion, status post thoracentesis, possible pulmonary emboli, obstructive sleep apnea, advanced lymphocytic leukemia and renal insufficiency had been worked up and he is prepared according to the specialists and PMD to be discharged today. While he has not been evaluated has use of CPAP, he is using a very old machine, approximately 12 years old; there is no SD card on his chip, there is no AFC, how often he is using it, what pressures he use generating, what his AHI is, we do not know if he has persistent apnea through the machine or not. Clinically, he looks better, he is smiling and looks happy, but his sleep apnea status is completely unknown, there has been no followup whatsoever since receiving his machine by Dr. Nielson over a decade ago. He needs to have this adjusted and evaluated. He is permitted to have a new machine and we will be more than happy to see him in the office and care for his obstructive sleep apnea and make sure that he is followed appropriately with new CPAP. In addition to this problem, he needs to have a followup x-ray to show complete resolution of the pneumonia and effusion so that further pulmonary evaluation is required upon discharge. PHYSICAL EXAMINATION: GENERAL: He is resting comfortably, afebrile. Exam appears to be good. NECK: Supple. No JVD. CARDIOVASCULAR: Regular rhythm. No gallop or rub. LUNGS: Minimal rales at the left base, minimal rhonchi at the left base. No wheezing is appreciated. ABDOMEN: Soft, obese. EXTREMITIES: Reveal no clubbing, cyanosis or edema. There is no Homans sign. SKIN: Intact. NEUROLOGIC: Appears to be normal. No lymphadenopathy is appreciated. IMPRESSION: As described above with obstructive sleep apnea, status post pneumonia, status post pleural effusion, questionable pulmonary embolism. PLAN: The patient expects to be discharged today with antibiotic coverage by ID as well as bronchodilators and inhaled corticosteroids. If he sees me in the office, I will be happy to reevaluate his general sleep apnea status, get him a new CPAP machine and follow him closely as an outpatient. He should have a followup x-ray in 10 days' time. We will be happy to follow him if necessary. Eduin Gould MD
--- NOTE | 2017-07-01 13:39 | PN ---
DATE: 07/01/2017 SUBJECTIVE: The patient is in bed, in no acute distress, nontoxic. PHYSICAL EXAMINATION: VITAL SIGNS: Temperature is 97, blood pressure is 160/80 and respiratory rate of 18. HEENT: Unremarkable. NECK: Supple. LUNGS: Decreased breath sounds. HEART: Normal S1 and S2. ABDOMEN: Soft and nontender. LABORATORY EXAMINATION: Reveals a white count of 6.2, hemoglobin of 9 and platelets of 186. Chemistries reveal a BUN of 46 and creatinine of 1.6. Microbiology reveals blood cultures are negative, urine cultures are negative and the pleural fluid cultures are no growth. No fungal elements are seen on a JESENIA preparation and no organism seen on the Gram stain. Routine cultures are no growth. Dr. Garcia's progress note from yesterday is reviewed. He states the patient has a stage IV lymphocytic lymphoma, status post chemotherapy with chlorambucil and obinutuzumab. Dr. Livingston's note is reviewed. ASSESSMENT AND PLAN: This is a 71-year-old with obesity and body mass index of 31, hypertension, kidney disease, chronic lymphocytic leukemia and lymphocytic lymphoma stage IV with gout and presenting with severe sepsis, left-sided healthcare-associated pneumonia with acute kidney injury on top of chronic kidney injury, currently on Maxipime and Zithromax day #6, cefepime and continue present course. May be able to switch to p.o. antibiotics. The patient is status post ultrasound-guided thoracentesis and had all cultures negative so far. Jorge Simmons MD
--- NOTE | 2017-07-02 00:38 | DS ---
HISTORY OF PRESENT ILLNESS: The patient is a 71-year-old black male who was admitted with community-acquired pneumonia. He has chronic lymphocytic leukemia. He was recently admitted in [facility] with diagnosis of TIA where neuro workup was negative, so he went to see Dr. Garcia who referred him to emergency room for evaluation, had V/Q scan done that is intermediate probability. We were unable to do CT angio because of his worst kidney function that has improved. PHYSICAL EXAMINATION: GENERAL: Today, he is awake, alert, oriented and communicative. VITAL SIGNS: He is afebrile, pulse 84, respirations 20 and blood pressure 146/81. LUNGS: Bilateral fair airflow, decreased at bases. HEART: S1 and S2 audible. ABDOMEN: Soft, obese, nontender. No rebound. No guarding. NEUROLOGICALLY: The patient is awake, alert, oriented and communicative. LABORATORY EXAM: WBC 6.2, hemoglobin 9.9, hematocrit 30.9 and platelet of 186. Chemistry: Sodium 140, potassium 4.9, chloride 102, CO2 of 28, BUN 46 and creatinine 1.6. His blood culture and urine cultures are negative. ASSESSMENT: 1. Pleural effusion. 2. Pneumonia. 3. Hypertension. 4. Apxlb-fi-bhiyvzd kidney disease. 5. Chronic anemia. 6. Questionable, intermediate probability pulmonary embolism. PLAN: The patient is being discharged home on Vantin 200 twice a day, Zithromax 250 daily for another week, prednisone 20 mg twice a day and we will discharge him on Eliquis 2.5 twice a day and aspirin 81 daily. He will resume all his medications prior to admission that include hydralazine 100 twice a day, Micardis 80 mg daily, Cardura 8 mg twice a day, Lipitor 20 mg daily, atenolol 50 in the morning and 25 at bedtime, allopurinol 100 twice a day. I will follow up him in the office next week. Ching Livingston MD
--- NOTE | 2017-07-02 15:18 | PN ---
DATE: 07/01/2017 SUBJECTIVE: The patient is seen sitting in bed. He is awake, he is alert, he is comfortable. He still has some cough. He has some shortness of breath. He denies any chest pain. PHYSICAL EXAMINATION: GENERAL: Obese elderly male sitting in bed. VITAL SIGNS: Blood pressure 146/81, heart rate 84, respiratory rate 20, temperature 97.8. HEENT: Normocephalic, atraumatic. NECK: Supple, no JVD. LUNGS: Bilateral equal entry, bilateral rhonchi, crackles left base. CARDIAC: S1 and S2, regular rate and rhythm, no murmur, no rub. ABDOMEN: Obese, distended, soft, nontender, bowel sounds present. EXTREMITIES: No lower extremity edema. INTAKE AND OUTPUT: 480/700. LABORATORY DATA: No new labs. MEDICATIONS: Apresoline 50 b.i.d., Cardura 8 b.i.d., cefepime 500 daily, Cozaar 50, Eliquis 2.5 b.i.d., Lipitor 20, MiraLax 17, amlodipine 10, prednisone 40, Protonix 40, atenolol 50, Zithromax 500. ASSESSMENT AND PLAN: 1. Acute kidney injury superimposed on chronic kidney disease stage III, resolved. 2. Pneumonia. 3. Parapneumonic effusion. 4. Hypertension. 5. Chronic myelogenous leukemia. PLAN: 1. Switch to p.o. antibiotics as per ID recommendations. 2. Continue antihypertensives. 3. Stable from the renal standpoint. 4. No objection to discharge. Chelo Ernst MD
--- NOTE | 2017-07-02 20:02 | CP.PCM.PN ---
Subjective - Date & Time of Evaluation Date of Evaluation: 07/01/17 Time of Evaluation: 17:00 - Subjective Subjective: No acute complaints. Planning on leaving today ROS: 12 ROS negative; breathing much better Pain: Denies Objective - Vital Signs/Intake and Output Vital Signs (last 24 hours): Temp Pulse Resp BP Pulse Ox 97.8 F 84 20 146/81 96 07/01/17 07:30 07/01/17 07:30 07/01/17 07:30 07/01/17 09:05 07/01/17 07:30 - Labs Labs: 06/30/17 05:40 06/30/17 10:41 PT 11.4 Seconds (9.9-11.8) 06/26/17 19:25 INR 1.06 (0.93-1.08) 06/26/17 19:25 APTT 43.8 Seconds (23.7-30.8) H 06/28/17 13:00 - Constitutional Appears: Well - Head Exam Head Exam: ATRAUMATIC, NORMAL INSPECTION, NORMOCEPHALIC - ENT Exam ENT Exam: Mucous Membranes Moist, Normal Exam - Respiratory Exam Respiratory Exam: Clear to Ausculation Bilateral, NORMAL BREATHING PATTERN - Cardiovascular Exam Cardiovascular Exam: REGULAR RHYTHM, +S1, +S2. absent: Murmur - GI/Abdominal Exam GI & Abdominal Exam: Soft, Normal Bowel Sounds. absent: Tenderness - Extremities Exam Extremities Exam: Full ROM, Normal Capillary Refill, Normal Inspection. absent : Joint Swelling, Pedal Edema Assessment and Plan - Assessment and Plan (Free Text) Assessment: Mr. Lucas is a 71 y/o saba with stage IV SLL/CLL s/p tx with chlorambucil + obinutuzumab who was admitted with COPD excacerbation in setting of presumed pna. Patient doing well and will be discharge per primary team. Medications to be converted to PO abx regimen for pna. 1. stage IV lymphocytic lymphoma 2. Left lower lobe pneumonia 3. Acute on chronic renal failure 4. Hypertension 5. Obesity -previous flow cytometry negative; f/u with repeat -continue with renally dosed eliquis of probably PE basedon V/Q scan. -Blood cultures negative thus far, urine culture negative -Continue current medical management as per primary team -patient instructed to call Dr. Garcia's office to schedule follow-up in the next 1-2 weeks. Amari Garcia MD Oncology Service
--- NOTE | 2017-07-03 14:10 | PQF RESP ---
07/03/17 Dr. Livingston, Respiratory failure is documented on progress note of 06/[address] Ernst. Do you agree, disagree, undetermined with this diagnosis? If you agree, please specify type and severity of respiratory failure (acute/chronic, with/without hypoxia/hypercapnia). Also, if you agree with this, was respiratory failure present on admission? Thank you. Clarification of your documentation is requested to better reflect the severity of illness and intensity of treatment of your patient. Indicators present [] Use of Home Oxygen [] Respiratory rate > 28 or <8/min (Labored respirations) [] PCO2 > 50 mm Hg or (Hypercapnia) (somnolence) x[] PaO2 < 60 mm Hg or Hypoxemia (confusion) [] ABG blood gas pH < 7.35 [] SpO2 < 90% sat on Room Air [] Cyanosis [] Unable to Speak in Full Sentences [] Use of Accessory Muscles / Tripoding [x] Wheezing [] Other: [] Location in the medical record that reflects the above clinical findings: [] Treatment Provided: [] PHYSICIAN'S RESPONSE Based on your medical judgment of the clinical indicators outlined above, are you treating this patient for a known or suspected: [x] Acute Respiratory Failure (hypoxia or hypercapnia) [] Chronic Respiratory Failure (hypoxia or hypercapnia) [] Acute on Chronic Respiratory Failure (hypoxia or hypercapnia) [] Hypoxemia please specify ACUTE, CHRONIC or ACUTE on CHRONIC [] Other []_ [] If unable to determine, please check the box, sign and date. Present On Admission (POA) Indicator: [x] Present at the time of admission [] Not present at the time of admission [] Clinically Undetermined In responding to this query, please exercise your independent professional judgment. The fact that a question is asked does not imply that any particular answer is desired or expected. Thank you for your clarification on this documentation. 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 In theory, respiratory failure is defined as a Pa02 value of <60 mm/Hg or a PaC02 of >50 mm/Hg. However, these values may be affected by renal compensation. Respiratory failure may be acute or chronic. While acute respiratory failure is characterized by life-threatening derangement in arterial blood gases and acid-base balance, the manifestations of chronic respiratory failure are less dramatic and may not be as readily apparent. Classifications: Respiratory failure may be classified as hypoxemic (usually characterized by Pa02 of <60 mm/Hg) or hypercapnic (usually characterized by PaC02 >50 mm/Hg) and either may be acute or chronic. Chronic hypercapnic respiratory failure develops over time and allows for renal compensation and an increase in bicarbonate concentration; therefore the pH is usually only slightly decreased. The distinction between acute and chronic hypoxemic respiratory failure cannot readily be made on the basis of ABGs; the clinical markers of chronic hypoxemia, such as polythycemia or cor pulmonale suggest a long standing disorder (chronic hypoxemic respiratory failure). Clinical Indicators: dyspnea at rest or "chronic" dyspnea, concomitant conditions such as polycythemia or cor pulmonale, requirement for continuous oxygen support, forced expiratory volume in one second (FEV1) of 49 or less, pursed lip breathing, "barrel" chest, hyperinflation by CXR, muscle wasting, malnutrition/obesity, poor exercise capacity, peripheral edema, description as a "blue bloater" (usually associated with chronic, obstructive bronchitis) or "pink puffer" (usually associated with emphysema) Risks: Chronic Hypoxemic Respiratory Failure - COPD, pulmonary fibrosis, asthma , pulmonary arterial hypertension, granulomatous lung diseases, congenital heart disease, bronchiectasis, kyphoscoliosis, obesity; Chronic Hypercapnic Respiratory Failure - COPD, severe asthma, myasthenia gravis, polyneuropathy, polio, head and cervical spine injuries, obesity hypoventilation syndrome. Treatment: supplemental oxygen, bronchodilators, corticosteroids, adequate nutrition, lung transplant References: Am. J. Respir. Crit. Care Med. "Global Strategy for the Diagnosis, Management and Prevention of COPD: GOLD Exectuive Summary," Justin Maharaj Anzueto - 2007; Proceedings of the [employer] [employer] "Mechanisms and Measurements of Dyspnea in COPD," Rodrigo - 2006; WebMD; Respiratory Failure, Sat MD Jun - 03/2006; Kurt's Principles of Internal Medicine, 17th edition. Acute Respiratory Failure Acute Respiratory Failure indicators include: ~Respirations >28 ~Air hunger ~Use of accessory muscles of respiration ~Inability to speak in full sentences Cyanosis ~Pulse ox <90% RA or <95% on O2 pH <7.35 or >7.45 ~pO2 < 60 mm Hg (or 10mm below COPD patient's baseline) ~pCO2 >50mm Hg (or 10mm above COPD patient's baseline) "Respiratory failure may be assigned as a principal diagnosis when it is the condition established after study to be chiefly responsible for occasioning admission to the hospital. The fact that the respiratory failure was managed without intubation and mechanical ventilation does not preclude its use." [facility], 3rd Qtr., 1988, p. 7 MTDD
--- NOTE | 2017-07-03 14:14 | PQF GENQUE ---
07/03/17 Dr. Livingston, You document "questionable intermediate probability pulmonary embolism" on your discharge summary. Was pulmonary embolism ruled in, ruled out? If pulmonary embolism was ruled in, was this present on admission? Thank you. Clarification of your documentation is requested to better reflect the severity of illness and intensity of treatment of your patient. Indicators present [] Specify: [] [] Specify: [] [] Specify: [] [] Specify: [] Location in the medical record that reflects the above clinical findings: [] Treatment Provided: [] PHYSICIAN'S RESPONSE Based on your medical judgment of the clinical indicators outlined above please clarify the following: [] Practitioner response [x] If unable to determine, please check the box, sign and date. Present On Admission (POA) Indicator: [x] Present at the time of admission [] Not present at the time of admission [] Clinically Undetermined In responding to this query, please exercise your independent professional judgment. The fact that a question is asked does not imply that any particular answer is desired or expected. Thank you for your clarification on this documentation. 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
== END 2017-07-01 17:26 | disposition home or self-care (01) | DRG 871 ==
LOC: ED 19:11 → ERH 22:38 → 2RNO 06-27 00:43 → OBSVTOIN 06-27 11:31 → 5RNO 06-30 21:38
PROVIDERS: ADMIT Internal Medicine; ATTEND Internal Medicine
PROC: 0W9B3ZZ Drainage of Left Pleural Cavity, Percutaneous Approach (ICD-10-PCS; principal; 2017-06-29 13:00)
DX: A41.9 Sepsis, unspecified organism (principal); N17.0 Acute kidney failure with tubular necrosis; J96.01 Acute respiratory failure with hypoxia; J90 Pleural effusion, not elsewhere classified; J18.9 Pneumonia, unspecified organism; N18.4 Chronic kidney disease, stage 4 (severe); D89.9 Disorder involving the immune mechanism, unspecified; C91.10 Chronic lymphocytic leukemia of B-cell type not having achieved remission; C92.10 Chronic myeloid leukemia, BCR/ABL-positive, not having achieved remission; C85.80 Other specified types of non-Hodgkin lymphoma, unspecified site; J98.11 Atelectasis; J44.0 Chronic obstructive pulmonary disease with (acute) lower respiratory infection; E88.81 Metabolic syndrome and other insulin resistance; D64.9 Anemia, unspecified; R65.20 Severe sepsis without septic shock; E66.01 Morbid (severe) obesity due to excess calories; Z68.31 Body mass index [BMI] 31.0-31.9, adult; E78.5 Hyperlipidemia, unspecified; Z86.73 Personal history of transient ischemic attack (TIA), and cerebral infarction without residual deficits; I12.9 Hypertensive chronic kidney disease with stage 1 through stage 4 chronic kidney disease, or unspecified chronic kidney disease; J06.9 Acute upper respiratory infection, unspecified; G47.33 Obstructive sleep apnea (adult) (pediatric); M10.9 Gout, unspecified; Y95 Nosocomial condition; Z79.899 Other long term (current) drug therapy; Z92.21 Personal history of antineoplastic chemotherapy

== ENCOUNTER 2018-02-23 12:55 | Inpatient (IN) | payer MEDICARE ==
[2018-02-23 13:03] VITALS: BMI 34.7
--- NOTE | 2018-02-23 13:10 | ED PDOC ---
Arrival/HPI - General Chief Complaint: Upper Extremity Problem/Injury Time Seen by Provider: 02/23/18 13:00 Historian: Patient - History of Present Illness Narrative History of Present Illness (Text): 02/23/18 13:09 Patient is a 72 year old male whose past medical history includes hypertension, TIA, and non-Hodgkin's lymphoma, who presents to the Emergency department complaining of intermittent left arm pain which started a few days ago. Patient reports that his pain radiates throughout his left upper extremity. He admits to driving himself to the emergency department, and also states that upon arriving to the Emergency department he started experiencing difficulty focusing. He mentions starting Warfarin approximately 1.5 months ago and is in a clinical trial for his lymphoma. Patients believes his non-Hodgkin's lymphoma is in remission and undergoes a CT and X-ray every 6 months. Patient denies fevers, chills, chest pain, shortness of breath, dyspnea on exertion, cough, abdominal pain, nausea, vomiting, diarrhea, back pain, neck pain, headache, dizziness, or any other complaint. 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 PMD: Oncologist:Radha Time/Duration: < week (past few days) Symptom Onset: Gradual Symptom Course: Intermittent Context: Home Past Medical History - Provider Review Nursing Documentation Reviewed: Yes - Infectious Disease Hx of Infectious Diseases: None - Cardiac Hx Cardiac Disorders: Yes Hx Hypertension: Yes - Pulmonary Hx Respiratory Disorders: Yes Hx Pneumonia: Yes - Neurological Hx Neurological Disorder: Yes Hx Transient Ischemic Attacks (TIA): Yes - HEENT Hx HEENT Disorder: No - Renal Hx Renal Disorder: Yes - Endocrine/Metabolic Hx Endocrine Disorders: Yes Other/Comment: Stage IV lymphocytic lymphoma - Hematological/Oncological Hx Blood Disorders: No - Integumentary Hx Dermatological Disorder: No - Musculoskeletal/Rheumatological Hx Musculoskeletal Disorders: Yes Hx Falls: No Hx Gout: Yes - Gastrointestinal Hx Gastrointestinal Disorders: Yes Other/Comment: constipation - Genitourinary/Gynecological Hx Genitourinary Disorders: No - Psychiatric Hx Psychophysiologic Disorder: No Hx Substance Use: No - Surgical History Hx Cardiac Catheterization: Yes Hx Orthopedic Surgery: Yes (R. Knee) - Anesthesia Hx Anesthesia: Yes Hx Anesthesia Reactions: No Hx Malignant Hyperthermia: No - Suicidal Assessment Feels Threatened In Home Enviroment: No Family/Social History - Physician Review Nursing Documentation Reviewed: Yes Family/Social History: No Known Family HX Smoking Status: Never Smoked Hx Alcohol Use: Yes (occassional wine) Hx Substance Use: No Allergies/Home Meds Allergies/Adverse Reactions: Allergies No Known Allergies Allergy (Verified 02/23/18 17:49) Home Medications: Home Meds Medication Instructions Recorded Confirmed Allopurinol [Zyloprim] 100 mg PO BID 04/07/17 02/23/18 Atenolol [Tenormin] 25 mg PO HS 04/07/17 02/23/18 Atenolol [Tenormin] 50 mg PO DAILY 04/07/17 02/23/18 Atorvastatin [Lipitor] 20 mg PO DAILY 04/07/17 02/23/18 Doxazosin [Cardura] 8 mg PO BID 04/07/17 02/23/18 Telmisartan [Micardis] 80 mg PO DAILY 04/07/17 02/23/18 hydrALAZINE [Apresoline] 100 mg PO BID 04/07/17 02/23/18 Omeprazole 20 mg PO DAILY PRN 02/23/18 02/23/18 Warfarin [Coumadin] 5 mg PO QOTHERDAY 02/23/18 02/23/18 Warfarin [Coumadin] 10 mg PO QOTHERDAY 02/23/18 02/23/18 Review of Systems - Physician Review All systems were reviewed & negative as marked: Yes - Review of Systems Constitutional: absent: Fevers Respiratory: absent: SOB, Cough Cardiovascular: absent: Chest Pain, GARVIN Gastrointestinal: absent: Abdominal Pain, Diarrhea, Nausea, Vomiting Musculoskeletal: Myalgias (left arm pain). absent: Back Pain, Neck Pain Neurological: absent: Headache, Dizziness Physical Exam Vital Signs Reviewed: Yes Vital Signs Temp Pulse Resp BP Pulse Ox 02/23/18 20:18 55 L 18 178/68 H 100 02/23/18 16:13 53 L 18 147/87 95 02/23/18 12:56 98.7 F 63 18 143/68 95 Temperature: Afebrile Blood Pressure: Hypertensive Pulse: Regular Respiratory Rate: Normal Appearance: Positive for: Well-Appearing Mental Status: Positive for: Alert and Oriented X 3 - Systems Exam Head: Present: Atraumatic, Normocephalic Pupils: Present: PERRL Extroacular Muscles: Present: EOMI Conjunctiva: Present: Normal Mouth: Present: Moist Mucous Membranes Neck: Present: Normal Range of Motion Respiratory/Chest: Present: Clear to Auscultation, Good Air Exchange. No: Respiratory Distress, Accessory Muscle Use Cardiovascular: Present: Regular Rate and Rhythm, Normal S1, S2. No: Murmurs Abdomen: No: Tenderness, Distention, Peritoneal Signs Back: Present: Normal Inspection Upper Extremity: Present: Normal Inspection. No: Cyanosis, Edema Lower Extremity: Present: Normal Inspection. No: Edema Neurological: Present: GCS=15, CN II-XII Intact, Speech Normal Skin: Present: Warm, Dry, Normal Color. No: Rashes Psychiatric: Present: Alert, Oriented x 3, Normal Insight. No: Normal Concentration (Patient appears slow to respond as if he is searching for the answer.) Medical Decision Making ED Course and Treatment: 02/23/18 13:24 Impression: Patient is a 72 year old male complaining of intermittent upper left extremity pain, which started a few days ago. He is also complaining of recent difficulty focusing. Differential Diagnosis included but are not limited to: ACS vs. Musculoskeletal arm pain vs. Altered mental status Plan: --EKG --Head CT without contrast --Labs --urinalysis --Reassess and disposition Prior Visits: Notes and results from previous visits were reviewed. Progress Notes: There is a discrepancy in the patients medication list as patient stated he is taking warfarin. EKG shows NSR at 60 BPM with normal QT intervals. Interpreted by me. 02/23/[address] Without Contrast: Creator : Micheal Camacho MD IMPRESSION: No acute intracranial findings. Severe chronic microvascular changes 02/23/18 16:16 Discussed case with who agreed to have patient admitted under her care. Requested consultation with , , and . 02/23/18 17:18 called and requested that patient undergo a MRI, and wait for results before admission. 02/23/18 Discussed with patient about being called for consultation but patient didn't want to see , and wanted to see . I requested for conuslt only to find that no longer provides consult at the hospital. I discussed this with the patient who subsequently agreed to see . 02/23/18 19:00 Brain MRI without contrast: Creator : Jake Brewster MD IMPRESSION: There is a tiny acute/ subacute infarct in the right posterior temporoparietal watershed zone. Multiple tiny focal areas of hemosiderin deposition scattered throughout the supratentorial compartment bilaterally as well as brainstem. 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 Significant diffuse/confluent chronic periventricular white matter ischemic changes seen extending peripherally into the deep and subcortical white matter both cerebral hemispheres. Multiple more discrete chronic appearing bilateral basal nuclei and brainstem ischemic changes. Moderate to significant generalized volume loss. Note that Dr. Vicente of the emergency room department informed these findings at approximately 7 p.m. with written down and read back verification. 02/23/18 20:02 Discussed MRI results with , who agrees with admitting the patient under her service. She requested that neurology consult be changed from to . - Critical Care Critical Care Minutes: 30 minutes - Lab Interpretations Lab Results: 02/23/18 13:15 02/23/18 13:15 Lab Results 02/23/18 13:15: Troponin I 0.02, Cholesterol 177 02/23/18 13:15: Sodium 143, Potassium 3.5 L, Chloride 101, Carbon Dioxide 31, Anion Gap 15, BUN 25 H, Creatinine 1.6 H, Est GFR ( Amer) 52, Est GFR ( Non-Af Amer) 43, Random Glucose 135 H, Calcium 9.2, Total Bilirubin 0.4, AST 43 , ALT 44, Alkaline Phosphatase 61, NT-Pro-B Natriuret Pep 319, Total Protein 7.0 , Albumin 4.4, Globulin 2.7, Albumin/Globulin Ratio 1.6 02/23/18 13:15: PT 31.0 H, INR 2.67 H, APTT 43.2 H 02/23/18 13:15: WBC 4.1 L D, RBC 4.60, Hgb 13.0 L D, Hct 40.0 L, MCV 87.0 D, MCH 28.3, MCHC 32.5, RDW 15.0 H, Plt Count 101 L, MPV 10.7, Gran % 69.9 H, Lymph % (Auto) 25.8, Osborne % (Auto) 3.6, Eos % (Auto) 0.7 L, Baso % (Auto) 0.0, Gran # 2.87, Lymph # (Auto) 1.1 L, Osborne # (Auto) 0.2, Eos # (Auto) 0.0, Baso # ( Auto) 0.00 I have reviewed the lab results: Yes - RAD Interpretation Radiology Orders: 02/23/18 14:52 HEAD W/O CONTRAST [CT] Stat End Worker: Radiologist - EKG Interpretation Interpreted by ED Physician: Yes Type: 12 lead EKG - Medication Orders Current Medication Orders: Acetaminophen (Tylenol 325mg Tab) 650 mg PO Q6H PRN PRN Reason: Fever >100.4 F Allopurinol (Zyloprim) 100 mg PO BID [facility] Last Admin: 02/25/18 10:43 Dose: 100 mg Aspirin (Ecotrin) 81 mg PO DAILY [facility] Last Admin: 02/25/18 10:42 Dose: 81 mg Atenolol (Tenormin) 25 mg PO HS [facility] Last Admin: 02/25/18 05:48 Dose: Not Given Non-Admin Reason: BP Parameters Not Met MAR Pulse and Blood Pressure Document 02/25/18 05:48 JK (Rec: 02/25/18 05:48 JK [facility] [id number]) Pulse Pulse Rate (60-90) 54 Atenolol (Tenormin) 50 mg PO DAILY [facility] Last Admin: 02/25/18 10:46 Dose: 50 mg MAR Pulse and Blood Pressure Document 02/25/18 10:46 DRIER OPERATOR (Rec: 02/25/18 10:46 DRIER OPERATOR [facility] [place]-[id number]) Pulse Pulse Rate (60-90) 72 Blood Pressure Blood Pressure (100/60-150/90) 184/72 Atorvastatin Calcium (Lipitor) 20 mg PO DAILY [facility] Last Admin: 02/25/18 10:42 Dose: 20 mg Doxazosin Mesylate (Cardura) 8 mg PO BID [facility] Last Admin: 02/25/18 10:38 Dose: 8 mg Hydralazine HCl (Apresoline) 100 mg PO BID [facility] Last Admin: 02/25/18 10:45 Dose: 100 mg MAR Pulse and Blood Pressure Document 02/25/18 10:45 DRIER OPERATOR (Rec: 02/25/18 10:46 DRIER OPERATOR [facility] [place]-[id number]) Pulse Pulse Rate (60-90) 72 Blood Pressure Blood Pressure (100/60-150/90) 184/72 Losartan Potassium (Cozaar) 100 mg PO DAILY [facility] Last Admin: 02/25/18 10:47 Dose: 100 mg Pantoprazole Sodium (Protonix Ec Tab) 40 mg PO 0600 [facility] Last Admin: 02/25/18 05:48 Dose: 40 mg Warfarin Sodium (Coumadin) 5 mg PO 1800 [facility] PRN Reason: Protocol Last Admin: 02/24/18 17:37 Dose: 5 mg Discontinued Medications Aspirin (Aspirin) 325 mg PO STAT STA Stop: 02/23/18 20:31 Last Admin: 02/23/18 20:38 Dose: 325 mg Hydralazine HCl (Apresoline) 10 mg IVP STAT [facility] Last Admin: 02/23/18 20:38 Dose: 10 mg IVP Administration Document 02/23/18 20:38 RD (Rec: 02/23/18 20:45 RD [id number]) Charges for Administration # of IVP Administrations 1 NOV Pulse and Blood Pressure Document 02/23/18 20:38 RD (Rec: 02/23/18 20:45 RD [id number]) Pulse Pulse Rate (60-90) 53 Blood Pressure Blood Pressure (100/60-150/90) 182/80 Lactulose (Enulose) 10 gm PO ONCE ONE Stop: 02/25/18 10:32 Last Admin: 02/25/18 10:49 Dose: 10 gm Pneumococcal Polyvalent Vaccine (Pneumovax 23 Vaccine) 0.5 ml IM .ONCE ONE Stop: 02/23/18 23:16 Potassium Chloride (K-Dur 20 Meq Er Tab) 20 meq PO ONCE ONE Stop: 02/24/18 10:45 Last Admin: 02/24/18 11:09 Dose: 20 meq Potassium Chloride (Potassium Chloride Oral Soln) 40 meq PO STAT STA Stop: 02/25/18 09:34 Last Admin: 02/25/18 10:43 Dose: 40 meq Potassium Chloride (K-Dur 20 Meq Er Tab) 40 meq PO ONCE ONE Stop: 02/25/18 11:04 NIHSS Scale ([place]) Time Performed: 13:24 - How Severe is the Stoke Baseline Level of Consciousness: 0=Alert LOC to Questions: 1=One correct LOC to commands: 0=Obeys both correctly Best Gaze: 0=Normal Visual: 0=No visual loss Facial: 0=Normal Motor Arm - Left: 0=No drift Motor Arm - Right: 0=No drift Motor Leg - Left: 0=No drift Motor Leg - Right: 0=No drift Limb Ataxia: 0=Absent Sensory: 0=Normal Best Language: 0=No aphasia Dysarthia: 0=Normal articulation Extinction & Inattention (Neglect): 0=Normal, no object Score: 1 Risk Level: Minor Stroke Risk - Scribe Statement The provider has reviewed the documentation as recorded by the Scribe Maximiliano Baker Provider Scribe Attestation: All medical record entries made by the Scribe were at my direction and personally dictated by me. I have reviewed the chart and agree that the record accurately reflects my personal performance of the history, physical exam, medical decision making, and the department course for this patient. I have also personally directed, reviewed, and agree with the discharge instructions and disposition. Disposition/Present on Arrival - Present on Arrival Any Indicators Present on Arrival: No History of DVT/PE: No History of Uncontrolled Diabetes: No Urinary Catheter: No History of Decub. Ulcer: No History Surgical Site Infection Following: None - Disposition Have Diagnosis and Disposition been Completed?: Yes Diagnosis: Left arm pain, Acute coronary syndrome, CVA (cerebral vascular accident), Altered mental status, Confusion Disposition: HOSPITALIZED Disposition Time: 20:46 Patient Plan: Admission, Telemetry Condition: FAIR
[2018-02-23 13:28] LABS: EOS % 0.7 % (1.5-5.0); GRAN # 2.87 (1.4-6.5); GRAN % 69.9 % (50.0-68.0); LYMPH # 1.1 (1.2-3.4); LYMPH % 25.8 % (22.0-35.0); MEAN CORPUSCULAR HEMOGLOBIN 28.3 pg (25.0-35.0); MEAN CORPUSCULAR HGB CONC 32.5 g/dl (31.0-37.0); MEAN PLATELET VOLUME 10.7 fl (7.0-11.0); MONO # 0.2 (0.1-0.6); MONO % 3.6 % (1.0-6.0); RBC 4.6 10^6/uL (3.5-6.1); WHITE BLOOD COUNT 4.1 10^3/ul (4.5-11.0)
[2018-02-23 13:37] LABS: ALB/GLOB RATIO 1.6 (1.1-1.8); ALBUMIN 4.4 g/dL (3.0-4.8); CALCIUM 9.2 mg/dL (8.4-10.5)
[2018-02-23 13:56] LABS: INR 2.67 (0.93-1.08); PARTIAL THROMBOPLASTIN TIME 43.2 Seconds (25.1-36.5)
--- NOTE | 2018-02-23 15:20 | CT ---
PROCEDURE: CT HEAD WITHOUT CONTRAST. HISTORY: altered mental status COMPARISON: 05/15/2017 TECHNIQUE: Axial computed tomography images were obtained through the head/brain without intravenous contrast. Radiation dose: Total exam DLP = 913 mGy-cm. This CT exam was performed using one or more of the following dose reduction techniques: Automated exposure control, adjustment of the mA and/or kV according to patient size, and/or use of iterative reconstruction technique. FINDINGS: HEMORRHAGE: No intracranial hemorrhage. BRAIN: No mass effect or edema. Chronic microvascular changes are seen in the periventricular white matter. VENTRICLES: Unremarkable. No hydrocephalus. CALVARIUM: Unremarkable. PARANASAL SINUSES: Unremarkable as visualized. No significant inflammatory changes. MASTOID AIR CELLS: Unremarkable as visualized. No inflammatory changes. OTHER FINDINGS: None. IMPRESSION: No acute intracranial findings. Severe chronic microvascular changes
[2018-02-23 18:05] LABS: PH,URINE 6.5 (4.7-8.0); URINE BILIRUBIN NEGATIVE (NEGATIVE); URINE BLOOD NEGATIVE (NEGATIVE); URINE GLUCOSE (UA) NEGATIVE (NEGATIVE); URINE LEUKOCYTE ESTERASE NEGATIVE Leu/uL (NEGATIVE); URINE PROTEIN 30 mg/dL (<30 mg/dL); URINE UROBILINOGEN 0.2 E.U./dL (<1 E.U./dL)
[2018-02-23 18:09] LABS: URINE APPEARANCE CLEAR (CLEAR); URINE COLOR YELLOW (YELLOW)
[2018-02-23 18:11] LABS: URINE BACTERIA FEW (NEG); URINE RBC 0 - 2 /hpf (0-2); URINE WBC 0 - 2 /hpf (0-6)
--- NOTE | 2018-02-23 19:00 | MRI ---
PROCEDURE: MRI BRAIN WITHOUT CONTRAST HISTORY: ALTERED MENTAL STATUS//CONFUSION COMPARISON: Comparison made with CT scan brain obtained earlier same day. TECHNIQUE: Multiplanar, multisequence MR images of the brain were obtained without intravenous contrast enhancement. FINDINGS: HEMORRHAGE: No acute parenchymal, subarachnoid or extra-axial hemorrhage. There are multiple tiny focal areas of hemosiderin deposition scattered throughout the supratentorial compartment bilaterally as well as brainstem. 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 BRAIN PARENCHYMA: Significant diffuse/confluent chronic periventricular white matter ischemic changes seen extending peripherally into the deep and subcortical white matter both cerebral hemispheres. Multiple more discrete chronic appearing bilateral basal nuclei and brainstem ischemic changes. Moderate to significant generalized volume loss. VENTRICLES: No obstructive hydrocephalus. CRANIUM: Unremarkable. ORBITS: Orbits and contents grossly unremarkable. PARANASAL SINUSES/MASTOIDS: Mild mucosal thickening both maxillary antra left greater than right with minor mucosal thickening in the ethmoid air complex. Frontal sinuses remain hypoplastic/underpneumatized VASCULAR SYSTEM: Visualized major vascular flow voids at skull base patent. OTHER FINDINGS: None. IMPRESSION: There is a tiny acute/ subacute infarct in the right posterior temporoparietal watershed zone. Multiple tiny focal areas of hemosiderin deposition scattered throughout the supratentorial compartment bilaterally as well as brainstem. 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 Significant diffuse/confluent chronic periventricular white matter ischemic changes seen extending peripherally into the deep and subcortical white matter both cerebral hemispheres. Multiple more discrete chronic appearing bilateral basal nuclei and brainstem ischemic changes. Moderate to significant generalized volume loss. Note that Dr. Vicente of the emergency room department informed these findings at approximately 7 p.m. with written down and read back verification.
[2018-02-23 21:30] LABS: TROPONIN I 0.02 ng/mL
[2018-02-23] MEDS ORDERED: Pneumococcal 23-Valent Vaccine IM ONE (23:15)
[2018-02-24 01:01] LABS: TROPONIN I 0.03 ng/mL
--- NOTE | 2018-02-24 03:48 | HP ---
HISTORY OF PRESENT ILLNESS: The patient is 72 years old, known to me from my office practice. Patient states he was having intermittent left-sided chest pain radiating to the left shoulder and the left arm. He got concerned, so he came to emergency room for further evaluation. While he was in the ER, attending noted that he was having difficulty finding words. Patient states that his arm pain has been going on intermittently for the last few days. Patient was recently admitted in [facility] when he was found to have altered mental status while he was in car, so ambulance was called in, he was taken to [facility] At that point, he was started on Coumadin. Prior to that episode, patient was on Aggrenox; however, because of the failure of treatment, he has been on Coumadin since then. PAST MEDICAL HISTORY: He also has past medical history significant for; 1. Hypertension. 2. Morbid obesity. 3. Hyperlipidemia. 4. History of chronic lymphocytic leukemia under the care of Dr. Garcia. 5. History of chronic kidney disease. ALLERGIES: NOT ALLERGIC TO ANY MEDICATIONS. MEDICATIONS AT HOME: He is on omeprazole 20 mg daily, Coumadin 10 mg twice a week and 5 mg every day otherwise, hydralazine 100 mg twice a day, Micardis 80 mg daily, Cardura 8 mg twice a day, atorvastatin mg daily, atenolol 50 mg daily, and allopurinol. SOCIAL HISTORY: He is a and socially drinks. Smoked pipe in the remote past. Currently, very active in jehovah's witness. REVIEW OF SYSTEMS: Significant for intermittent chest pain. PHYSICAL EXAMINATION: GENERAL: He is awake, alert, oriented, communicative. VITAL SIGNS: He is afebrile, pulse 53, respirations 18, blood pressure 157/69. LUNGS: Bilateral fair airflow. No rhonchi or crackle. HEART: S1 and S2 audible. ABDOMEN: Soft, obese, nontender. No rebound. No guarding. NEUROLOGICAL: He is awake, alert, and oriented. No focal deficits. LABORATORY DATA: WBC 4.1, hemoglobin 13, hematocrit 40, platelets 101. PT 31 and INR 2.67. Chemistry: Sodium 143, potassium 3.5, chloride 101, CO2 of 31, BUN 25, creatinine 1.6, blood sugar 136. Urinalysis is negative except for protein positive. He had CT scan of the brain done that was unremarkable; however, MRI of the brain shows tiny acute versus subacute infarct in the right posterior temporoparietal watershed zone, multiple tiny focal areas of hemosiderin deposition, scattered throughout the supratentorial compartment bilaterally as well as in the brain stem. No evidence of acute intracranial hemorrhage. ASSESSMENT: 1. Chest pain, rule out coronary ischemia. 2. 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 3. Hypertension. 4. Chronic kidney disease. 5. Chronic lymphocytic leukemia. PLAN: So, plan is currently, patient will be placed in observation. We will do neuro checks. We will continue him on Coumadin. Monitor his troponin. Neuro consult and Cardiology consult has been requested and follow up his statin and follow up his lipid profile and continue him on his usual blood pressure medication including hydralazine 100 mg twice a day, Cardura, losartan, aspirin 81 daily, Lipitor 40 mg daily, atenolol, and allopurinol. We will request physical therapy evaluation. Follow up the patient in a.m. Ching Livingston MD
[2018-02-24] MEDS ORDERED: Pantoprazole 40 mg EC Tab PO SCH (06:30)
[2018-02-24] MEDS: Pantoprazole 40 mg EC Tab PO SCH (06:36)
[2018-02-24 07:20] LABS: ALB/GLOB RATIO 1.5 (1.1-1.8); ALBUMIN 3.9 g/dL (3.0-4.8); CALCIUM 9.4 mg/dL (8.4-10.5)
[2018-02-24 07:49] LABS: FREE T4 1.12 ng/dL (0.78-2.19)
--- NOTE | 2018-02-24 09:43 | CARD ---
APPROVED REPORT EKG Measurement Heart [id number] IA [id number] <Conclusion> Normal sinus rhythm Leftward axis Nonspecific T wave abnormality PRWP No change
[2018-02-24] MEDS ORDERED: Potassium Chloride 20 mEq ER Tab PO ONE (10:44)
[2018-02-24 18:29] VITALS: O2SAT 98
--- NOTE | 2018-02-25 02:04 | CON ---
DATE: 02/24/[address] [facility] consult on the telemetry floor for Dr. Garcia. CHIEF COMPLAINT: Left arm pain. HISTORY OF PRESENT ILLNESS: The patient is a 72-year-old black male with left arm pain approximately 4/10 for the past two days, which radiated to the shoulder with no chest pain, no neck pain reported. There is also questionable of vision change with difficulty focusing in the emergency room as per Dr. Vicente's evaluation. With this, the patient did have an MRI of the brain done with a tiny acute/subacute infarct noted in the right posterior temporoparietal watershed zone with no evidence of acute intracranial hemorrhage. His other testing included troponin values, which were negative x2 with electrolytes within normal limits except for a low potassium, which is being corrected. Patient is on Coumadin with an INR value of 2.67. At present, he is resting comfortably with anticipated possible discharge home later today as per Dr. Livingston/Dr. White, Neurology. ALLERGIES: NO KNOWN ALLERGIES. MEDICATIONS: Include hydralazine, aspirin, Cardura, Cozaar, potassium, Protonix, Tenormin, allopurinol, Tylenol. PAST MEDICAL HISTORY: Significant for TIA, hypertension, stage IV small cell lymphocytic lymphoma, status post chemotherapy with chlorambucil and obinutuzumab in [facility], 6 cycles completed in 04/2017. Status post significant TIA with MRI done that time negative and patient was found sitting in his car, not knowing where he was. Patient is also enrolled in a study in [facility]; however, he was not taking any medications at this time. SOCIAL HISTORY: Nonsmoker, known ethanolic, no substance abuse. 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 REVIEW OF SYSTEMS: A 12-point review of systems was done, which is negative to questions except for items mentioned in history of present illness. PHYSICAL EXAMINATION: VITAL SIGNS: Temperature 97.9, pulse 68, respirations 17, blood pressure 144/68, pulse ox 96%. However, his previous telemetry reading showed a heart rate of 47, heart rate of 51, 50. HEENT: Unremarkable. NECK: Supple. HEART: Anshul rate, regular rhythm. LUNGS: Clear. ABDOMEN: Obese, soft, nontender. EXTREMITIES: No edema. 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 SKIN: Otherwise warm, dry and clear. LABORATORY DATA: Patient labs were done yesterday. White blood cell count is 4.1, hemoglobin 13, hematocrit of 40, platelet count of 101,000. Chem metabolic panel within normal limits, initially he had a creatinine of 1.6, it is now 1.5 with a BUN of 21 with a TSH of 2.3, otherwise normal chem metabolic panel. His INR is 2.67. The patient's other testing included an EKG done yesterday, it was read as normal sinus rhythm, left axis, nonspecific T-wave abnormality , no change. He had a CAT scan of his head done yesterday, it was read as no acute intracranial findings, severe chronic microvascular changes. He had an MRI of his brain done yesterday, the impression was that of a tiny acute/subacute infarct in the right posterior temporoparietal watershed zone. 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 Significant diffuse chronic periventricular white matter ischemic changes seen extending peripheries of the deep and subcortical white matter with both cerebral hemispheres, multiple moderate discrete chronic appearing bilateral basal nuclei and brainstem ischemic changes, moderate to significant generalized volume loss. The patient had an echocardiogram which was ordered for as not been done at this time. ASSESSMENT: For this patient is that of arm pain, rule out cardiac ischemia, hypertension, acute versus subacute infarct, history of transient ischemic attack, stage IV lymphocytic lymphoma, status post chemotherapy with chlorambucil and obinutuzumab at [facility], anticoagulation on Coumadin, obesity, chronic obstructive pulmonary disease. PLAN: For this patient, he had consultation with Dr. Garcia is to recommend waiting for evaluations by Neurology, Dr. White and Cardiology, Dr. Atkinson with his Coumadin to be restarted after evaluation by Neurology and Cardiology as indicated his INR is therapeutic at this time. We will wait for his echocardiogram with his labs to be rechecked in the morning. Should the patient to be discharged home. We will recommend to follow up in the office of Dr. Garcia in one week's time or earlier. The patient continues on Ecotrin once a day in the interim with again Coumadin to be restarted as per consultants recommendations with therapeutic INR at present. We will monitor clinically with labs. We will also check his INR in the a.m. This is a complex patient with comprehensive medically necessary appropriate visit carried out in excess of 45 minutes in [id number] time also with patient's records reviewed with conversations held with nursing as above. Edwin La MD
--- NOTE | 2018-02-25 03:42 | CON ---
DATE: HISTORY OF PRESENT ILLNESS: This is a 72-year-old male with past medical history of hypertension, obesity, hyperlipidemia, chronic lymphocytic leukemia and chronic kidney disease, came to the hospital. Patient had intermittent left arm pain, left arm and shoulder with the chest pain and patient recently had 72-hour EEG and bring to neurologist office and patient was recently seen in [facility] for altered mental state. PAST MEDICAL HISTORY: Hypertension, obesity, hyperlipidemia, lymphocytic leukemia, chronic kidney disease. ALLERGIES: NO KNOWN DRUG ALLERGY. PHYSICAL EXAMINATION: HEENT: Normocephalic, atraumatic. NECK: Supple. NEUROLOGIC: Alert, awake, orientated x3. No aphasia. Cranial nerves II through XII are tested. Pupils reactive. EOM intact. Visual field full. No facial asymmetry. Tongue midline. Motor examination: Moves all the extremities equally. Tone normal. Deep tendon reflexes 1+. Both plantars are downgoing. Sensory appears intact. Cerebellar, gait normal. IMPRESSION: Patient had infarct in the right posterior temporoparietal watershed area and also cavernous malformation syndrome, chest pain, hypertension, chronic kidney disease and chronic lymphocytic leukemia and patient is doing better. PLAN: Continue present management. We will add 81 mg aspirin. Patient is on Coumadin. We will follow up. Agustin White MD
[2018-02-25 04:30] VITALS: RESP 18
[2018-02-25] MEDS: Pantoprazole 40 mg EC Tab PO SCH (05:48)
--- NOTE | 2018-02-25 07:37 | DS ---
HISTORY OF PRESENT ILLNESS: The patient is 72 years old, seen and examined, anxious to go home. Denies any chest pain. No shortness of breath. No nausea or vomiting. No diarrhea. PHYSICAL EXAMINATION: VITAL SIGNS: He is afebrile, pulse 51, respirations 18, blood pressure 149/72. LUNGS: Bilateral good airflow. No rhonchi or crackle. HEART: S1 and S2 audible. ABDOMEN: Soft. Nontender. No rebound. No guarding. NEUROLOGICAL: The patient is awake, alert, oriented. Able to move all extremities. LABORATORY EXAM: His sodium 144, potassium 3.4, chloride 102, CO2 of 33, BUN 21, creatinine 1.5, blood sugar of 111, triglyceride 186. Urinalysis is unremarkable. He has MRI of the brain done that shows lacunar infarct and right watershed area of temporoparietal lobe. ASSESSMENT: 1. Chest pain, seems to be atypical. 2. Uncontrolled hypertension. 3. Renal insufficiency. 4. Gastroesophageal reflux disease. PLAN: The patient is already on aspirin and he is on Coumadin. He will continue that. He is advised to take atorvastatin 20 mg daily. The patient states he want to go home today. He will follow up with Dr. Torre on Monday and will have stress test done as outpatient. Ching Livingston MD
[2018-02-25 07:47] LABS: INR 2.53 (0.93-1.08); PROTHROMBIN TIME 29.6 SECONDS (9.4-12.5)
[2018-02-25 07:48] LABS: BASO # 0.01 K/mm3 (0.0-2.0); BASO % 0.2 % (0.0-3.0); EOS # 0.1 (0.0-0.7); EOS % 1.8 % (1.5-5.0); GRAN # 2.74 (1.4-6.5); GRAN % 62.6 % (50.0-68.0); HEMOGLOBIN 12.7 g/dL (14.0-18.0); LYMPH # 1.3 (1.2-3.4); LYMPH % 29.7 % (22.0-35.0); MEAN CELL VOLUME 86.6 fl (80.0-105.0); MEAN CORPUSCULAR HEMOGLOBIN 27.9 pg (25.0-35.0); MEAN CORPUSCULAR HGB CONC 32.2 g/dl (31.0-37.0); MEAN PLATELET VOLUME 11.1 fl (7.0-11.0); MONO # 0.3 (0.1-0.6); MONO % 5.7 % (1.0-6.0); RBC 4.56 10^6/uL (3.5-6.1); RED CELL DISTRIBUTION WIDTH 15.1 % (11.5-14.5); WHITE BLOOD COUNT 4.4 10^3/ul (4.5-11.0)
[2018-02-25 07:59] LABS: ALB/GLOB RATIO 1.4 (1.1-1.8); ALBUMIN 3.9 g/dL (3.0-4.8); CALCIUM 9.3 mg/dL (8.4-10.5)
--- NOTE | 2018-02-25 09:04 | CP.PCM.PN ---
Subjective - Date & Time of Evaluation Date of Evaluation: 02/25/18 Time of Evaluation: 06:50 - Subjective Subjective: Lying in bed, awake, bipap in use, no distress,comfortable,claimed to slept well Reason for consultation and follow up: Cardiac evaluation for intermittent left arm pain radiating to shoulder started few days ago. History of hypertension, TIA, non-Hodgkin's lymphoma,hyperlipidemia. Seen and examined by me and Dr. Atkinson Objective - Vital Signs/Intake and Output Vital Signs (last 24 hours): Temp Pulse Resp BP Pulse Ox 98.3 F 54 L 18 153/66 H 98 02/25/18 00:01 02/25/18 06:00 02/25/18 00:01 02/25/18 00:01 02/24/18 18:00 Intake and Output: 02/25/18 02/25/18 06:59 18:59 Intake Total 440 Output Total 500 Balance -60 - Medications Medications: Current Medications Acetaminophen (Tylenol 325mg Tab) 650 mg PO Q6H PRN PRN Reason: Fever >100.4 F Allopurinol (Zyloprim) 100 mg PO BID [facility] Last Admin: 02/24/18 17:37 Dose: 100 mg Aspirin (Ecotrin) 81 mg PO DAILY [facility] Last Admin: 02/24/18 11:06 Dose: 81 mg Atenolol (Tenormin) 25 mg PO HS [facility] Last Admin: 02/25/18 05:48 Dose: Not Given Atenolol (Tenormin) 50 mg PO DAILY [facility] Last Admin: 02/24/18 11:06 Dose: Not Given Atorvastatin Calcium (Lipitor) 20 mg PO DAILY [facility] Last Admin: 02/24/18 11:09 Dose: 20 mg Doxazosin Mesylate (Cardura) 8 mg PO BID [facility] Last Admin: 02/24/18 17:36 Dose: 8 mg Hydralazine HCl (Apresoline) 100 mg PO BID [facility] Last Admin: 02/24/18 17:37 Dose: 100 mg Losartan Potassium (Cozaar) 100 mg PO DAILY [facility] Last Admin: 02/24/18 12:00 Dose: 100 mg Pantoprazole Sodium (Protonix Ec Tab) 40 mg PO 0600 [facility] Last Admin: 02/25/18 05:48 Dose: 40 mg Warfarin Sodium (Coumadin) 5 mg PO 1800 [facility] PRN Reason: Protocol Last Admin: 02/24/18 17:37 Dose: 5 mg - Labs Labs: 02/25/18 06:30 02/25/18 06:30 PT 29.6 SECONDS (9.4-12.5) H 02/25/18 06:30 INR 2.53 (0.93-1.08) H 02/25/18 06:30 APTT 43.2 Seconds (25.1-36.5) H 02/23/18 13:15 - Constitutional Appears: No Acute Distress - Head Exam Head Exam: NORMOCEPHALIC - Eye Exam Eye Exam: Normal appearance - ENT Exam ENT Exam: Mucous Membranes Moist - Respiratory Exam Respiratory Exam: Decreased Breath Sounds, NORMAL BREATHING PATTERN Additional comments: CPAP/BIPAP at night - Cardiovascular Exam Cardiovascular Exam: +S1, +S2 Additional comments: Telemetry sinus bradycardia 42-51/min - GI/Abdominal Exam GI & Abdominal Exam: Soft, Normal Bowel Sounds - Extremities Exam Extremities Exam: Normal Capillary Refill - Neurological Exam Neurological Exam: Alert, Awake, Oriented x3 - Psychiatric Exam Psychiatric exam: Normal Affect, Normal Mood - Skin Skin Exam: Intact, Normal Color, Warm Assessment and Plan - Assessment and Plan (Free Text) Assessment: 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 History of hypertension, TIA, non-Hodgkin's lymphoma,hyperlipidemia. CT of head done, negative for bleeding/hemorrage. MRI of brain showed tiny acute/subacute infarct in the right posterior tempoparietal watershed zone.Dr. White consulted and significant for TIA. Plan: Significant TIA, (MRI result) Neurology on consult On Coumadin and Aspirin Cardiac status stable Denies arm pain Echo done awaiting results On ASA 81 mg daily,Tenormin 50 mg daily and 25 mg at HS, Lipitor 20 mg daily, Hydralazine 100 mg BID,Cozaar 100 mg daily Coumadin 5 mg daily Stress test as out patient Controlled heart rate and blood pressure Continue current management Will follow up Plan and treatment discussed with Dr. Atkinson
[2018-02-25] MEDS ORDERED: Potassium Chloride 20 mEq/15 ml LIQ UD PO STA (09:33)
[2018-02-25] MEDS ORDERED: Potassium Chloride 20 mEq ER Tab PO ONE (11:03)
[2018-02-25 12:05] VITALS: BP 154/82; PULSE 65; TEMP 97.9
--- NOTE | 2018-02-25 16:56 | PN ---
DATE: 02/25/2018 This is [facility] visit on the telemetry floor. For Dr. Garcia. SUBJECTIVE: The patient is a 72-year-old male admitted for left arm pain yesterday with the pain suspected to be related to a cardiac condition with suspicion for an atypical chest pain from his heart. However, the patient did have an episode in the emergency room of vision change, unable to focus with MRI of the brain showing a new right posterior temporoparietal watershed area infarct, for which Dr. White evaluated the patient with the patient now improved with aspirin added to his regimen for discharge later home today. The patient is also anticoagulated on Coumadin with therapeutic values. OBJECTIVE: VITAL SIGNS: Temperature 97.9, pulse 65, respirations 18, and blood pressure 154/82 with a pulse ox of 98%. HEENT: Unremarkable. No further vision changes the patient reports. NECK: Supple. HEART: Regular rate with bradycardic changes noted on telemetry. LUNGS: Clear with minimal decreased breath sounds at the bases. ABDOMEN: Obese, soft, and nontender. EXTREMITIES: No edema. SKIN: Warm and dry. 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 It should be noted that the patient is on BiPAP for sleep apnea. The patient did have an echocardiogram done, it was not read yet. However, the patient was seen by Dr. Atkinson who recommends aspirin in addition to his other medications. LABORATORY DATA: The patient's labs were done. White blood cell count of 4.4, hemoglobin 12.7, hematocrit 39.5, and platelet count 109,000. The patient reports no active bleeding with no increased bruisability and no petechiae in oropharynx and we will watch as the patient is now on platelet inhibitors, aspirin, and we will watch his platelet count as per Dr. Garcia's recommendations. ASSESSMENT: Symptomatic transient ischemic attack, hypertension, history of stage IV lymphocytic lymphoma, on anticoagulation with Coumadin, chronic obstructive pulmonary disease, obesity. PLAN: Plan for this patient after conversation with Dr. Garcia is to continue his present medical regimen. Aspirin was added as per Dr. Atkinson's recommendation in addition to his Coumadin which was therapeutic with his labs done today with an INR value of 2.53. His chem metabolic panel showed a potassium of 3.3, BUN of 24, creatinine of 1.6 with a white blood cell count of 4.4, hemoglobin 12.7, hematocrit 39.5, and platelet count of 109,000. Again, the recommendations are to continue his present medical regimen with followup with Dr. Garcia in 1 week's time or earlier. Edwin La MD
--- NOTE | 2018-02-26 04:48 | DS ---
HISTORY OF PRESENT ILLNESS: Patient is 72 years old, seen and examined, doing well. No nausea or vomiting, no diarrhea. Eating and tolerating, ambulating. Seems to be stable. PHYSICAL EXAMINATION: VITAL SIGNS: He is afebrile, pulse 65, respirations 18, blood pressure 154/82. LUNGS: Bilateral fair airflow. No rhonchi or crackle. HEART: S1 and S2 audible. ABDOMEN: Soft. Nontender. No rebound. No guarding. NEUROLOGICAL: He is awake, alert, oriented, communicative. LABORATORY DATA: WBC is 4.4, hemoglobin 12.4, hematocrit 39.5, and platelets of 109. PT 29.6, INR 2.53. Chemistry: Potassium is 3.5. ASSESSMENT: 1. Acute versus subacute right temporoparietal watershed area cerebrovascular accident. 2. Uncontrolled hypertension. 3. Morbid obesity. 4. History of chronic lymphocytic leukemia. 5. Hypokalemia. 6. [id number] renal insufficiency. 7. History of gastritis. PLAN: So the plan is patient is being discharged home today. He is advised to continue baby aspirin and Coumadin. Followup in my office for PT/INR. He will remain on hydralazine 100 mg twice a day, omeprazole 20 mg daily, Micardis 80 mg daily, Cardura 8 mg twice a day, atorvastatin 20 mg daily, atenolol 50 in the a.m. and 25 in the p.m., and allopurinol 100 mg twice a day. Followup in my office and he will follow with Dr. Paul. Ching Livingston MD
--- NOTE | 2018-02-26 08:34 | CON ---
DATE: 02/24/2018 TYPE OF DICTATION: Cardiac evaluation, arm pain. BRIEF CLINICAL HISTORY: This is a 72-year-old male with past medical history of hypertension, morbid obesity, hyperlipidemia, chronic lymphocytic leukemia, chronic kidney disease, came in with complaint of pain in the right arm. Denies any chest pain. Denies any shortness of breath. Denies any palpitation. The patient recently admitted to [facility] for a recent altered mental status, being followed by [facility] Dr. Eze Holland and Dr. Jarek Pastor. The patient denies any chest pain, shortness of breath or any palpitation to me as well as the ER physician. PAST MEDICAL HISTORY: Significant for hypertension, hyperlipidemia, obesity, chronic lymphocytic leukemia, chronic kidney disease. SOCIAL HISTORY: Denies any history of smoking. Used to smoke pipe in the past. Denies any history of alcohol abuse. 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 REVIEW OF SYSTEMS: As per HPI. FAMILY HISTORY: Noncontributory. CURRENT MEDICATIONS: The patient is taking at home omeprazole 20 mg daily, Coumadin 10 mg daily and 5 mg daily, hydralazine, doxazosin, atorvastatin, atenolol, and allopurinol. EKG shows normal sinus, nonspecific ST-T changes. PHYSICAL EXAMINATION: VITAL SIGNS: Height of the patient is 5 feet 8 inches, weight of the patient is 228 pounds, body mass index 34.7 kg/m2. Temperature , heart rate 47, blood pressure 152/55. HEENT: PERRLA. Extraocular muscles intact. NECK: Supple. No carotid bruit or thyromegaly. CHEST: Clear to auscultation. HEART: S1 and S2, regular. ABDOMEN: Soft. EXTREMITIES: Clubbing and cyanosis negative. LABORATORY DATA: Blood workup as follows; WBC 4.2, hemoglobin 13, hematocrit , platelet count 101. Chemistry shows sodium 144, potassium 3.4, chloride 102, carbon dioxide 33, anion gap of 12, BUN 21, creatinine 1.5. TSH 2.37. Total cholesterol 181, LDL 67, HDL 50. Troponin 0.02 and 0.03. The patient had head CT and CAT scan of the brain, and MRI of the brain done that shows significant diffuse confluent chronic perivascular white matter ischemic changes, multiple discrete coronary capillary and bilateral basal nuclei and brain stem ischemic changes by MRI of the brain. CAT scan, no acute finding noted, severe chronic microvascular changes noted. IMPRESSION: So far no evidence of acute myocardial infarction, hypertension, hyperlipidemia, morbid obesity, chronic lymphocytic leukemia, chronic kidney disease, hypokalemia. RECOMMENDATIONS: Supplement potassium, get echocardiogram to assess LV function. Discussed with the patient. The patient wants to go back to Dr. Pastor and he states that he will go back on Monday to see Dr. Pastor. Definitely because of risk stratification, the patient needs stress test. He expresses his wish that he will do with Dr. Pastor and Dr. Eze Holland. We will discuss with Dr. Livingston and communicated this message to Dr. Livingston. Probably, she is going to discharge with a followup with [facility]. We will get echo. We will supplement potassium. Yovanny Atkinson MD
--- NOTE | 2018-02-26 12:09 | CARD ---
APPROVED REPORT EXAM: Two-dimensional and M-mode echocardiogram with Doppler and color Doppler. INDICATION 2D DIMENSIONS IVSd1.8 (0.7-1.1cm)LVDd5.2 (3.9-5.9cm) PWd1.7 (0.7-1.1cm)LVDs3.4 (2.5-4.0cm) FS (%) 35.6 %LVEF (%)64.6 (>50%) M-Mode DIMENSIONS Left Atrium (MM)4.10 (2.5-4.0cm)Aortic Root3.10 (2.2-3.7cm) Aortic Cusp Exc.2.10 (1.5-2.0cm) Aortic Valve AoV Peak Okhmeqtd532.0cm/Jace Peak GR.12mmHg Mitral Valve MV E Ztgzzazj39.4cm/sMV A Vsztfvao731.0cm/sE/A ratio0.5 TDI Lateral E' Peak V5.75cm/sMedial E' Peak V4.66cm/sE/Lateral E'15.0 E/Medial E'18.5 Tricuspid Valve TR Peak Mfkzepra292eg/sRAP TTRRSYGX66qfLzCI Peak Gr.34mmHg [id number] LEFT VENTRICLE The left ventricle is normal size. There is mild concentric left ventricular hypertrophy. The left ventricular function is normal.EF-55-60% There is normal LV segmental wall motion. Transmitral Doppler flow pattern is Grade III-reversible restrictive diastolic dysfunction. No left ventricle thrombus noted on this study. There is no ventricular septal defect visualized. There is no left ventricular aneurysm. There is no mass noted in the left ventricle. RIGHT VENTRICLE The right ventricle is mildly dilated. There is normal right ventricular wall thickness. The right ventricular systolic function is normal. ATRIA The left atrium is mildly dilated. The right atrium is mildly dilated. The interatrial septum is intact with no evidence for an atrial septal defect. AORTIC VALVE The aortic valve is calcified and displays decreased opening. The aortic valve is moderately sclerotic. There is trace aortic regurgitation. Aortic sclerosis VS Mild MITRAL VALVE The mitral valve is thickened but opens well. Mitral annular calcification is moderate. Mitral regurgitation is trace to mild. There is no mitral valve stenosis. There is no evidence of mitral valve prolapse. TRICUSPID VALVE The tricuspid valve leaflets are thickened , but open well. There is mild tricuspid regurgitation.RVSP_44 mmof hG. There is no tricuspid valve stenosis. There is no tricuspid valve prolapse or vegetation. PULMONIC VALVE The pulmonic valve is mildly thickened. There is trace to mild pulmonic valvular regurgitation. There is no pulmonic valvular stenosis. GREAT VESSELS The aortic root is normal in size. The ascending aorta is normal in size. The pulmonary artery is normal. The IVC is normal in size and collapses >50% with inspiration. PERICARDIAL EFFUSION There is no pleural effusion. There is no pericardial effusion. <Conclusion> The left ventricle is normal size. There is mild concentric left ventricular hypertrophy. The left ventricular function is normal.EF-55-60% There is trace aortic regurgitation. Aortic sclerosis VS Mild Mitral regurgitation is trace to mild. There is mild tricuspid regurgitation.RVSP_44 mmof hG. The IVC is normal in size and collapses >50% with inspiration. There is trace to mild pulmonic valvular regurgitation.
== END 2018-02-25 15:11 | disposition home or self-care (01) | DRG 65 ==
LOC: ED 12:55 → ERH 16:24 → 2RNO 20:59
PROVIDERS: ADMIT Internal Medicine; ATTEND Internal Medicine
DX: I63.9 Cerebral infarction, unspecified (principal); C85.90 Non-Hodgkin lymphoma, unspecified, unspecified site; C91.10 Chronic lymphocytic leukemia of B-cell type not having achieved remission; I12.9 Hypertensive chronic kidney disease with stage 1 through stage 4 chronic kidney disease, or unspecified chronic kidney disease; N18.9 Chronic kidney disease, unspecified; E87.6 Hypokalemia; E66.01 Morbid (severe) obesity due to excess calories; E78.5 Hyperlipidemia, unspecified; K21.9 Gastro-esophageal reflux disease without esophagitis; R07.89 Other chest pain; K29.70 Gastritis, unspecified, without bleeding; J44.9 Chronic obstructive pulmonary disease, unspecified; R29.701 NIHSS score 1; Z79.01 Long term (current) use of anticoagulants; Z92.21 Personal history of antineoplastic chemotherapy; Z68.36 Body mass index [BMI] 36.0-36.9, adult

== ENCOUNTER 2018-03-30 14:34 | Emergency (ER) | payer MEDICARE ==
--- NOTE | 2018-03-30 15:22 | ED PDOC ---
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 Patient reports that approximately 2 hours ago he started experiencing left forearm numbness. Of note he mentions having a history of experiencing numbness of his left 4th and 5th finger about 1 time per week. He states that he had an EMG done yesterday and was diagnosed with carpal tunnel syndrome. He denies any finger soreness with writing. He denies any weakness or difficulty walking. Patient denies fevers, chills, cough, shortness of breath , chest pain, dyspnea on exertion, abdominal pain, nausea, vomiting, diarrhea, back pain, neck pain, headache, dizziness, or any other complaint. PMD: Neurologist:Dr.Ashish White Time/Duration: 1-3 hours Symptom Onset: Sudden Symptom Course: Unchanged Context: Home Past Medical History - Provider Review Nursing Documentation Reviewed: Yes - Infectious Disease Hx of Infectious Diseases: None - Cardiac Hx Cardiac Disorders: Yes Hx Hypertension: Yes - Pulmonary Hx Respiratory Disorders: Yes Hx Pneumonia: Yes - Neurological Hx Neurological Disorder: Yes Hx Transient Ischemic Attacks (TIA): Yes - HEENT Hx HEENT Disorder: No - Renal Hx Renal Disorder: Yes - Endocrine/Metabolic Hx Endocrine Disorders: Yes Other/Comment: Stage IV lymphocytic lymphoma - Hematological/Oncological Hx Blood Disorders: No - Integumentary Hx Dermatological Disorder: No - Musculoskeletal/Rheumatological Hx Musculoskeletal Disorders: Yes Hx Falls: No Hx Gout: Yes - Gastrointestinal Hx Gastrointestinal Disorders: Yes Other/Comment: constipation - Genitourinary/Gynecological Hx Genitourinary Disorders: No - Psychiatric Hx Psychophysiologic Disorder: No Hx Substance Use: No - Surgical History Hx Cardiac Catheterization: Yes Hx Orthopedic Surgery: Yes (R. Knee) - Anesthesia Hx Anesthesia: Yes Hx Anesthesia Reactions: No Hx Malignant Hyperthermia: No - Suicidal Assessment Feels Threatened In Home Enviroment: No Family/Social History - Physician Review Nursing Documentation Reviewed: Yes Family/Social History: No Known Family HX Smoking Status: Never Smoked Hx Alcohol Use: Yes (occassional wine) Hx Substance Use: No Allergies/Home Meds Allergies/Adverse Reactions: Allergies No Known Allergies Allergy (Verified 03/30/18 15:10) Home Medications: Home Meds Medication Instructions Recorded Confirmed Allopurinol [Zyloprim] 100 mg PO BID 04/07/17 03/30/18 Atenolol [Tenormin] 25 mg PO HS 04/07/17 03/30/18 Atenolol [Tenormin] 50 mg PO DAILY 04/07/17 03/30/18 Atorvastatin [Lipitor] 20 mg PO DAILY 04/07/17 03/30/18 Doxazosin [Cardura] 8 mg PO BID 04/07/17 03/30/18 Telmisartan [Micardis] 80 mg PO DAILY 04/07/17 03/30/18 hydrALAZINE [Apresoline] 100 mg PO BID 04/07/17 03/30/18 Omeprazole 20 mg PO DAILY PRN 02/23/18 03/30/18 Warfarin [Coumadin] 5 mg PO DAILY 03/30/18 03/30/18 Review of Systems - Physician Review All systems were reviewed & negative as marked: Yes - Review of Systems Constitutional: absent: Fevers, Night Sweats Respiratory: absent: SOB, Cough Cardiovascular: absent: Chest Pain, GARVIN Gastrointestinal: absent: Abdominal Pain, Diarrhea, Nausea, Vomiting Musculoskeletal: absent: Back Pain, Neck Pain Neurological: Other ((+) Numbness of left forearm). absent: Headache, Dizziness Physical Exam Vital Signs Reviewed: Yes Vital Signs Temp Pulse Resp BP Pulse Ox 03/30/18 17:59 98.4 F 54 L 18 135/72 100 03/30/18 15:02 98.6 F 56 L 16 137/61 99 Temperature: Afebrile Blood Pressure: Normal Pulse: Bradycardic Respiratory Rate: Normal Appearance: Positive for: Well-Appearing Mental Status: Positive for: Alert and Oriented X 3 - Systems Exam Head: Present: Atraumatic, Normocephalic Pupils: Present: PERRL Extroacular Muscles: Present: EOMI Conjunctiva: Present: Normal Mouth: Present: Moist Mucous Membranes Neck: Present: Normal Range of Motion Respiratory/Chest: Present: Clear to Auscultation, Good Air Exchange. No: Respiratory Distress, Accessory Muscle Use Cardiovascular: Present: Regular Rate and Rhythm, Normal S1, S2. No: Murmurs Abdomen: Present: Other ((+) Obese). No: Tenderness, Distention, Peritoneal Signs Back: Present: Normal Inspection Upper Extremity: Present: Normal Inspection. No: Cyanosis, Edema Lower Extremity: Present: Normal Inspection. No: Edema Neurological: Present: GCS=15, CN II-XII Intact, Speech Normal, Motor Func Grossly Intact, Normal Sensory Function Skin: Present: Warm, Dry, Normal Color. No: Rashes Psychiatric: Present: Alert, Oriented x 3, Normal Insight, Normal Concentration Medical Decision Making ED Course and Treatment: 03/30/18 15:26 Impression: Patient is a 72 year old male who presents to the Emergency department for left forearm numbness. Differential Diagnosis included but are not limited to: Most likely Carpal Tunnel Syndrome. Less likely CVA Plan: -- Labs -- Blood work -- CTA of head and neck -- Head CT without contrast -- EKG -- Reassess and disposition Prior Visits: Notes and results from previous visits were reviewed. Progress Notes: 03/30/18 15:26 EKG shows sinus bradycardia at [address]/T wave changes. Normal axis and intervals. Interpreted by me. 03/30/18 15:[address]Ashish White, who is the patient's neurologist, and who sent him to the emergency department for evaluation of his left arm numbness. He recently did an EMG study on patient's arm and believes its carpal tunnel syndrome, but since patient has a recent history of CVA, sent him for evaluation. Recommends CT head at this time and if negative then patient can be discharged and follow up with him as outpatient. 03/30/18 17:[address] without contrast: Dictated by: Dr.Joseph Saumya Ivory, D.O. Impression: No acute intracranial hemorrhage. Extensive diffuse/confluent chronic white matter ischemic changes seen extending peripherally into the deep and subcortical white matter both cerebral hemispheres. There is also extension of these changes into the white matter tracts of both basal nuclei. Note that the possibility of a small hyperacute infarct cannot be excluded. Moderate to failry significant central volume loss evidenced by disproportionate enlargement of the ventricles compared sulci. 03/30/18 17:[address], history, and examination in detail with , who reviewed CT scan and says no changes compared to previous CT findings. Patient will be discharged home and follow up with in two weeks. Patent is stable for discharge. He has no additional symptoms. I explained to him if he presents with any worsening symptoms or any stroke like symptoms to please return to the ED. He also will adjust his coumadin dosage with his PMD Dr. Livingston. - Lab Interpretations Lab Results: 03/30/18 15:43 03/30/18 15:43 Lab Results 03/30/18 15:43: Sodium 142, Potassium 3.4 L, Chloride 101, Carbon Dioxide 31, Anion Gap 15, BUN 29 H, Creatinine 1.6 H, Est GFR ( Amer) 52, Est GFR ( Non-Af Amer) 43, Random Glucose 171 H, Calcium 9.4, Total Bilirubin 0.5, AST 42 , ALT 46, Alkaline Phosphatase 65, Total Protein 7.0, Albumin 4.2, Globulin 2.8 , Albumin/Globulin Ratio 1.5, Triglycerides 157, Cholesterol 151, LDL Cholesterol Direct 61, HDL Cholesterol 45 03/30/18 15:43: PT 12.2, INR 1.07, APTT 27.3 03/30/18 15:43: WBC 5.1, RBC 4.52, Hgb 12.9 L, Hct 39.2 L, MCV 86.7, MCH 28.5, MCHC 32.9, RDW 15.3 H, Plt Count 102 L, MPV 11.3 H, Gran % 75.8 H, Lymph % (Auto ) 19.1 L, Sawyer % (Auto) 3.7, Eos % (Auto) 1.4 L, Baso % (Auto) 0.0, Gran # 3.89 , Lymph # (Auto) 1.0 L, Sawyer # (Auto) 0.2, Eos # (Auto) 0.1, Baso # (Auto) 0.00 I have reviewed the lab results: Yes - RAD Interpretation Radiology Orders: 03/30/18 15:27 HEAD W/O CONTRAST [CT] Stat Bunker Worker: Radiologist - EKG Interpretation Interpreted by ED Physician: Yes Type: 12 lead EKG - Medication Orders Current Medication Orders: Discontinued Medications Potassium Chloride (K-Dur 20 Meq Er Tab) 40 meq PO STAT STA Stop: 03/30/18 17:13 Last Admin: 03/30/18 17:40 Dose: 40 meq - Scribe Statement The provider has reviewed the documentation as recorded by the Joy Baker Provider Masteribe Attestation: All medical record entries made by the Scribe were at my direction and personally dictated by me. I have reviewed the chart and agree that the record accurately reflects my personal performance of the history, physical exam, medical decision making, and the department course for this patient. I have also personally directed, reviewed, and agree with the discharge instructions and disposition. Disposition/Present on Arrival - Present on Arrival Any Indicators Present on Arrival: No History of DVT/PE: No History of Uncontrolled Diabetes: No Urinary Catheter: No History of Decub. Ulcer: No History Surgical Site Infection Following: None - Disposition Have Diagnosis and Disposition been Completed?: Yes Diagnosis: Left arm numbness Disposition: HOME/ ROUTINE Disposition Time: 17:31 Patient Plan: Discharge Condition: IMPROVED Discharge Instructions (ExitCare): Hand Numbness Additional Instructions: SANDRA FENG, thank you for letting us take care of you today. Your provider was Kenneth Dyer DO and you were treated for Left Arm/Hand Numbness. The emergency medical care you received today was directed at your acute symptoms. If you were prescribed any medication, please fill it and take as directed. It may take several days for your symptoms to resolve. Return to the Emergency Department if your symptoms worsen, do not improve, or if you have any other problems. Please contact your doctor or call one of the physicians/clinics you have been referred to that are listed on the Patient Visit Information form that is included in your discharge packet. Bring any paperwork you were given at discharge with you along with any medications you are taking to your follow up visit. Our treatment cannot replace ongoing medical care by a primary care provider outside of the emergency department. Thank you for allowing the [facility] team to be part of your care today. If you had an X-Ray or CT scan: A Radiologist will review the ED reading if any change in treatment is needed we will contact you. If you had a blood, urine, or wound culture: It will take several days for the results, if any change in treatment is needed we will contact you. If you had an STI test: It will take 48 hours for the results. Please call after 1 week if you have not heard back. Referrals: Yassine White MD [Staff Provider] - Follow up with primary Ching Livingston MD [Family Provider] - Follow up with primary Forms: [facility] (Belarusian), WORK NOTE
[2018-03-30 15:35] VITALS: BMI 33.6
[2018-03-30 16:19] LABS: EOS # 0.1 (0.0-0.7); EOS % 1.4 % (1.5-5.0); GRAN # 3.89 (1.4-6.5); GRAN % 75.8 % (50.0-68.0); HEMOGLOBIN 12.9 g/dL (14.0-18.0); LYMPH % 19.1 % (22.0-35.0); MEAN CELL VOLUME 86.7 fl (80.0-105.0); MEAN CORPUSCULAR HEMOGLOBIN 28.5 pg (25.0-35.0); MEAN CORPUSCULAR HGB CONC 32.9 g/dl (31.0-37.0); MEAN PLATELET VOLUME 11.3 fl (7.0-11.0); MONO # 0.2 (0.1-0.6); MONO % 3.7 % (1.0-6.0); RBC 4.52 10^6/uL (3.5-6.1); RED CELL DISTRIBUTION WIDTH 15.3 % (11.5-14.5); WHITE BLOOD COUNT 5.1 10^3/ul (4.5-11.0)
[2018-03-30 16:29] LABS: INR 1.07 (0.93-1.08); PARTIAL THROMBOPLASTIN TIME 27.3 Seconds (25.1-36.5); PROTHROMBIN TIME 12.2 SECONDS (9.4-12.5)
[2018-03-30 17:01] LABS: ALB/GLOB RATIO 1.5 (1.1-1.8); ALBUMIN 4.2 g/dL (3.0-4.8); CALCIUM 9.4 mg/dL (8.4-10.5)
--- NOTE | 2018-03-30 17:04 | CARD ---
APPROVED REPORT Date of service: 03/30/2018 EKG Measurement Heart [id number] <Conclusion> Sinus bradycardia Nonspecific T wave abnormality Abnormal ECG
--- NOTE | 2018-03-30 17:07 | CT ---
Date of service: 03/30/2018 PROCEDURE: CT HEAD WITHOUT CONTRAST. HISTORY: Left forearm numbness r/o cva COMPARISON: Comparison made with prior CT scan brain 02/23/2018 TECHNIQUE: Axial computed tomography images were obtained through the head/brain without intravenous contrast. Radiation dose: Total exam DLP = 913.41 mGy-cm. This CT exam was performed using one or more of the following dose reduction techniques: Automated exposure control, adjustment of the mA and/or kV according to patient size, and/or use of iterative reconstruction techniqu. E. FINDINGS: HEMORRHAGE: No acute parenchymal, subarachnoid or extra-axial hemorrhage. BRAIN: Extensive diffuse/confluent chronic white matter ischemic changes seen extending peripherally into the deep and subcortical white matter both cerebral hemispheres. There is also extension of these changes into the white matter tracts of both basal nuclei. . Note that the possibility of a small hyperacute infarct cannot be excluded. Moderate to fairly significant central volume loss evidenced by disproportionate enlargement of the ventricles compared sulci. VENTRICLES: Hydrocephalus ex vacuo felt be present CALVARIUM: No acute calvarial fracture seen. PARANASAL SINUSES: Unremarkable as visualized. No significant inflammatory changes. MASTOID AIR CELLS: Unremarkable as visualized. No inflammatory changes. OTHER FINDINGS: None. IMPRESSION: No acute intracranial hemorrhage. Extensive diffuse/confluent chronic white matter ischemic changes seen extending peripherally into the deep and subcortical white matter both cerebral hemispheres. There is also extension of these changes into the white matter tracts of both basal nuclei. . Note that the possibility of a small hyperacute infarct cannot be excluded. Moderate to fairly significant central volume loss evidenced by disproportionate enlargement of the ventricles compared sulci.
[2018-03-30] MEDS ORDERED: Potassium Chloride 20 mEq ER Tab PO STA (17:12)
[2018-03-30 18:00] VITALS: BP 135/72; PULSE 54; RESP 18; TEMP 98.4; O2SAT 100
== END 2018-03-30 17:59 | disposition home or self-care (01) ==
LOC: ED 14:34
DX: R20.0 Anesthesia of skin (principal); I10 Essential (primary) hypertension; Z86.73 Personal history of transient ischemic attack (TIA), and cerebral infarction without residual deficits